=== PATIENT | male | born 1930 | race Caucasian/White ===

== ENCOUNTER 2018-04-01 08:28 | Day surgery (SDC) | payer OTHER ==
--- NOTE | 2018-03-15 11:22 | RAD REPORT ---
EXAM DESCRIPTION: RAD - Chest Pa And Lat (2 Views) - 03/15/2018 11:15 am CLINICAL HISTORY: Chest pain. COMPARISON: None. FINDINGS: The lungs are hyperexpanded but clear. The heart is normal in size. No displaced fractures . IMPRESSION: COPD.
--- NOTE | 2018-03-15 15:39 | EKG ---
Test Date: 2018-03-15 Test Time: 11:07:33 Integrated Circuit Design Engineer: JAMES MEASUREMENT RESULTS: Intervals: Rate: 64 NM: 254 QRSD: 102 QT: 410 QTc: 422 [place]: P: 64 NM: 254 QRS: -40 T: 60 INTERPRETIVE STATEMENTS: Sinus rhythm with 1st degree AV block Left axis deviation Abnormal ECG Compared to ECG 07/23/2009 18:24:11 Left-axis deviation now present Sinus bradycardia no longer present Atrial premature complex(es) no longer present Ventricular premature complex(es) no longer present Electronically Signed On 03-15-18 15:38:33 CDT by Ronaldo Concepcion
[2018-03-28 15:38] LABS: Absolute Monocytes 0.8 K/uL (0.1-1.3); Absolute Neutrophil 3.4 K/uL (1.8-8.0); Hematocrit 42.9 % (39.6-49.0); Lymphocytes % 40.5 % (15.3-44.8); MCH 31.6 pg (27.0-35.0); MCV 95.1 fL (80-100); MPV 8.7 fL (7.6-11.3); RBC Red Blood Cell Count 4.51 M/uL (4.33-5.43)
[2018-03-28 16:00] LABS: Potassium 4.9 mEq/L (3.6-5.0)
[~2018-04-01 08:28] MED LIST: CEFAZOLIN/SWI 1gm 1 GM/10 ML SYR IVP SCH
[2018-04-01] MEDS ORDERED: CEFAZOLIN/SWI 1gm 1 GM/10 ML SYR ONE (08:54)
[2018-04-01] MEDS ORDERED: Ringers Lactate 1,000 ML IV ONE ×2 (08:54→10:37)
[2018-04-01] MEDS ORDERED: PROPOFOL 200 MG/20 ML VIAL IV ONE (09:31)
[2018-04-01] MEDS ORDERED: FENTANYL CITR 100 MCG/2 ML ONE ×2 (09:33→10:25)
[2018-04-01] MEDS ORDERED: ROCURONIUM 50 MG/5 ML VIAL IV ONE (09:34)
[2018-04-01] MEDS ORDERED: ONDANSETRON HCL 40 MG/20 ML VIAL ONE (09:34)
[2018-04-01] MEDS ORDERED: GLYCOPYRROLATE 0.2 MG/ML SYR ONE (10:14)
[2018-04-01] MEDS ORDERED: NEOSTIGMINE 1 MG/ML -5 ML SYRINGE ONE (10:15)
[2018-04-01] MEDS: BUPIVACAINE 0.5% PF 10 ML VIAL ONE ×2 (10:35→10:53)
--- NOTE | 2018-04-01 10:54 | P.BOP ---
Preoperative diagnosis: tender left inguinal hernia Postoperative diagnosis: same Primary procedure: Open repair of tender left inguinal hernia with mesh Gold Nib Grinder: Fior Michael (Perla) Estimated blood loss: <10cc Specimen: lipoma of cord Findings: as above Anesthesia: General Complications: None Implants: mesh sheet and plug Transferred to: Recovery Room Condition: Good
[2018-04-01] MEDS: MEPERIDINE HCL 25 MG/0.5 ML ONE ×2 (11:30→11:35)
[2018-04-01 11:39] VITALS: TEMP 98.5
[2018-04-01] MEDS ORDERED: CODEINE 30MG/APAP 300MG TAB ONE (12:40)
[2018-04-01 12:48] VITALS: BP 108/56; O2SAT 98
--- NOTE | 2018-04-01 23:27 | OP ---
Date of Procedure: 04/01/2018 Surgeon: Chris Jackson MD Computer Clerk: LEAH Brown. Preoperative Diagnosis: Tender left inguinal hernia. Postoperative Diagnosis: Tender left inguinal hernia. Procedure Performed: Open repair of tender left inguinal hernia with mesh. Anesthesia: General plus local. Implants: Mesh, sheath, and plug. Indications: This is the case of an 87-year-old patient, comes to us with a tender left inguinal her paul. Benefits, alternatives, and risks of repair were fully explained which include but are not limi hunter to infection, bleeding, damage to adjacent structures as a complication, recurrence, LA, and even . He also understands this may not relieve any symptoms and he might need more than one surgic al intervention. He also understands the importance of no heavy lifting. He might have some chronic sensory and nerve deficits versus pain. He understands the chance of damage to the testicle. He wa s explained the details of a mesh placement and pros and cons of it. He understood, signed a consent . Description Of Procedure: The patient was brought to the operating room. A time-out was called. Th e anesthesia was done without complication. Left abdomen and inguinal region were prepped and draped in a sterile fashion. Local anesthesia was applied followed by sharp incision of the skin. Christina' s fascia was opened and we found the external oblique aponeurosis and the fibers were opened in the d irection of the fibers to meet the superficial inguinal ring. The ilioinguinal nerve and iliohypogas tric nerve were protected behind external oblique aponeurosis. The [place] was placed around the spe rmatic cord. We noticed the patient to have a hernia sac. Direct hernia was carefully imbricated an d a plug was placed in that area and secured in place with VersaTack nisha. The lipoma of the cord was also ligated. Spermatic cord protected at all times. The floor of the canal had to be reinforc ed. We reinforced that by using #1 Prolene to the pubic tubercle, shelving edge of inguinal ligament , transversalis fascia. After that, we put a mesh sheath over that floor of the canal and secured in place to the pubic tubercle, shelving edge of inguinal ligament, transversalis fascia, and the loops around the spermatic cord. The area was irrigated. After that, we placed the ilioinguinal nerve an d iliohypogastric nerve back into the inguinal canal. We reconstructed superficially the inguinal ri ng and closed the external oblique aponeurosis with the 2-0 Prolene. The area was irrigated. Hemost asis obtained. Nerves were protected all times. Christina's fascia closed with 3-0 chromic and skin wi th nisha. Sponge count and instrument counts were correct. The patient tolerated the procedure we ll. The patient was sent to Recovery in stable condition. DISCHARGE SUMMARY Diagnosis: Tender left inguinal hernia. Procedure: Open repair of a tender left inguinal hernia with mesh. Disposition: Home. Activity: As tolerated. No heavy lifting. Followup: Follow up in my office in 1 week. Call for appointment [phone]. Instructions: Keep area dry for 48 hours, then may shower. Medications: Include Tylenol No. 3, q.4 hours p.r.n. pain. Implants: Mesh, sheath, and plug. Disposition: Transferred to recovery room. SIM Voice ID: [id number] Report ID: [id number]
== END 2018-04-01 13:42 | disposition home or self-care (01) ==
LOC: OR 08:28
PROVIDERS: ATTEND Surgery
PROC: 0YU60JZ Supplement Left Inguinal Region with Synthetic Substitute, Open Approach (ICD-10-PCS; principal; 2018-04-01 10:00)
DX: K40.90 Unilateral inguinal hernia, without obstruction or gangrene, not specified as recurrent (principal); E07.9 Disorder of thyroid, unspecified; Z01.812 Encounter for preprocedural laboratory examination; Z80.9 Family history of malignant neoplasm, unspecified
CPT/HCPCS: 36415; 49505; 71046; 80048; 85025; 88302; 93005; J0690; J2175; J2405; J2710; J3010 ×2

== ENCOUNTER 2018-04-06 08:17 | Observation (INO) | payer OTHER ==
[2018-04-06 08:56] LABS: Absolute Lymphocytes (CBC) 1.1 K/uL (0.7-4.9); Absolute Monocytes 1.1 K/uL (0.1-1.3); Basophils % 0.5 % (0-1.3); Eosinophils % 1.7 % (0-4.4); Hematocrit 40.8 % (39.6-49.0); Lymphocytes % 15.4 % (15.3-44.8); MCH 31.9 pg (27.0-35.0); MCV 92.5 fL (80-100); MPV 8.5 fL (7.6-11.3); Monocytes % 15.3 % (3.3-12.3); RBC Red Blood Cell Count 4.41 M/uL (4.33-5.43)
[2018-04-06] MEDS ORDERED: NA CHLORIDE 0.9% 500 ML ONE (08:56)
[2018-04-06] MEDS ORDERED: NA CHLORIDE 0.9% 1,000 ML ONE (08:56)
[2018-04-06] MEDS ORDERED: ASPIRIN 81 MG CHEWABLE TABLET ONE (08:56)
[2018-04-06] MEDS ORDERED: FAMOTIDINE 20 MG/2 ML VIAL IV ONE (08:56)
[2018-04-06 09:00] LABS: Protime INR 1.05
[2018-04-06 09:15] LABS: Potassium 3.8 mEq/L (3.6-5.0)
[2018-04-06 09:21] LABS: Albumin 3.8 g/dL (3.2-5.5); Bilirubin Direct 0.1 mg/dL (0-0.2); Bilirubin Total 0.7 mg/dL (0.3-1.2); Magnesium 1.8 mg/dL (1.8-2.5); Protein, Total 7.2 g/dL (6.0-8.3)
[2018-04-06 09:24] LABS: CKMB Creatine Kinase MB 5.4 ng/ml (0.3-4.0)
[2018-04-06 09:27] LABS: Blood Morphology Comment NOT SEEN (NOT SEEN); Platelet Estimate ADEQ
[2018-04-06] MEDS ORDERED: ONDANSETRON 4 MG/2 ML VIAL IV PRN (09:36)
[2018-04-06] MEDS ORDERED: ACETAMINOPHEN 500 MG TAB PO PRN (09:36)
[2018-04-06] MEDS ORDERED: MORPHINE 4 MG/ML SYR IV PRN (09:36)
--- NOTE | 2018-04-06 09:41 | ER ---
Nurse's Notes [facility] Name: Stefan Lake Age: 87 yrs Sex: Male : 1930 Arrival Date: 04/06/2018 Time: 08:21 Bed 20 Private MD: Yuko Heart F Diagnosis: Chest pain, unspecified;Chest pain on breathing Presentation: 04/06 08:33 Presenting complaint: Child states: pt had 3 episodes of chest pain last night, pt iw states he also had SOB and felt like he couldn't move during the episode, pain radiates from anterior chest wall radiating around back, now c/o abd pain /, pt had recent inguinal hernia repair on Sunday, son reports abnormal EKG 2 weeks prior to surgery. Transition of care: patient was not received from another setting of care. Onset of symptoms was April 06, 2018. Risk Assessment: Do you want to hurt yourself or someone else? Patient reports no desire to harm self or others. Initial Sepsis Screen: Does the patient meet any 2 criteria? No. Patient's initial sepsis screen is negative. Does the patient have a suspected source of infection? No. Patient's initial sepsis screen is negative. Care prior to arrival: None. 08:33 Method Of Arrival: Wheelchair iw 08:33 Acuity: SARAH 3 iw Historical: - Allergies: 08:40 NKA; iw - Home Meds: 08:40 levothyroxine 50 mcg tab 1 tab once daily [Active]; Bactrim oral oral [Active]; iw - PMHx: 08:40 Hypothyroidism; Dementia; iw - PSHx: 08:40 Hernia repair; iw - Immunization history:: Adult Immunizations up to date. - Social history:: Smoking status: Patient/guardian denies using tobacco. - Ebola Screening: : Patient negative for fever greater than or equal to 101.5 degrees Fahrenheit, and additional compatible Ebola Virus Disease symptoms Patient denies exposure to infectious person Patient denies travel to an Ebola-affected area in the 21 days before illness onset No symptoms or risks identified at this time. - Family history:: not pertinent. Screenin:46 Abuse screen: Denies threats or abuse. Nutritional screening: No deficits noted. em Tuberculosis screening: No symptoms or risk factors identified. Fall Risk None identified. Assessment: 08:47 General: Appears in no apparent distress. comfortable, Behavior is calm, cooperative, em Denies fever, chills. Pain: Complains of pain in diaphragm Pain radiates to back and neck Pain began 1 day ago. Neuro: Level of Consciousness is awake, alert, obeys commands, Oriented to person, place, time, situation. Cardiovascular: Reports chest pain, shortness of breath, since yesterday Denies diaphoresis, nausea, Capillary refill < 3 seconds Patient's skin is warm and dry. Respiratory: Airway is patent Respiratory effort is even, unlabored, Respiratory pattern is regular, symmetrical. Respiratory: Breath sounds are clear bilaterally. GI: Abdomen is flat, Bowel sounds present X 4 quads. : No signs and/or symptoms were reported regarding the genitourinary system. EENT: No signs and/or symptoms were reported regarding the EENT system. Derm: Skin is intact, Skin is pink, warm \\T\\ dry. Musculoskeletal: Circulation, motion, and sensation intact. Range of motion: intact in all extremities. 09:00 Reassessment: Patient appears in no apparent distress at this time. pt son reports pt em is having chest pain, repeat EKG ordered, Dr. Orosco notified, pt appears to be having hiccups, son reports, "he's never had hiccups so he doesn't know what it is.". 09:00 Reassessment: Patient appears in no apparent distress at this time. I agree with above iw assessment by Sanjeev Gloria LVN. 10:00 Reassessment: Patient appears in no apparent distress at this time. Patient and/or em family updated on plan of care and expected duration. Pain level reassessed. Patient is alert, oriented x 3, equal unlabored respirations, skin warm/dry/pink. Patient denies pain at this time. Patient states feeling better. Patient states symptoms have improved. 11:04 Reassessment: Patient appears in no apparent distress at this time. Patient and/or em family updated on plan of care and expected duration. Pain level reassessed. Patient is alert, oriented x 3, equal unlabored respirations, skin warm/dry/pink. son at bedside. 12:27 Reassessment: No changes from previously documented assessment. Patient and/or family em updated on plan of care and expected duration. Pain level reassessed. Patient states feeling better. Vital Signs: 08:38 BP 159 / 80; Pulse 70; Resp 18 S; Temp 98.4(O); Pulse Ox 99% on R/A; Weight 70.31 kg; iw Height 5 ft. 7 in. (170.18 cm); Pain 5/10; 09:31 BP 164 / 77; Pulse 64; Resp 16; Pulse Ox 96% on R/A; em 10:30 BP 113 / 69; Pulse 66; Resp 15; Pulse Ox 97% on R/A; Pain 0/10; em 11:30 BP 129 / 83; Pulse 63; Resp 16; Pulse Ox 99% on R/A; em 12:29 BP 123 / 72; Pulse 62; Resp 18; Pulse Ox 95% on R/A; Pain 0/10; em 08:38 Body Mass Index 24.28 (70.31 kg, 170.18 cm) iw ED Course: 08:21 Patient arrived in ED. mr 08:21 Yuko Heart MD is Private Physician. mr 08:25 Giorgio Orosco MD is Attending Physician. sabrina 08:38 Sanjeev Gloria LVN is Primary Nurse. em 08:38 Triage completed. iw 08:38 Arm band placed on. iw 08:40 No provider procedures requiring assistance completed. Inserted saline lock: 20 gauge em in right antecubital area, using aseptic technique. Blood collected. Patient maintains SpO2 saturation greater than 95% on room air. 08:46 Patient has correct armband on for positive identification. secured entrance monitor on. Pulse em ox on. NIBP on. 08:49 Radiology exam delayed due to lab results not completed at this time. (BUN/Creatinine). vm2 08:53 X-ray completed. Portable x-ray completed in exam room. Patient tolerated procedure la2 well. 08:53 XRAY Chest (1 view) In Process Unspecified. EDMS 09:30 Yuko Heart MD is Hospitalizing Provider. sabrina 09:[address] via stretcher. cw1 12:28 Patient admitted, IV remains in place. em Administered Medications: 08:58 Drug: NS 0.9% 500 ml Route: IV; Rate: bolus; Site: right antecubital; em 09:30 Follow up: IV Status: Completed infusion; IV Intake: 500ml em 08:58 Drug: Aspirin 81 mg Route: PO; em 09:30 Follow up: Response: No adverse reaction em 09:01 Drug: Pepcid 20 mg Route: IVP; Site: right antecubital; iw 09:30 Follow up: Response: No adverse reaction em 09:25 Drug: NS 0.9% 1000 ml Route: IV; Rate: 125 ml/hr; Site: right antecubital; em 12:17 Follow up: IV Status: Infusion continued upon admission; IV Intake: 400ml em 10:08 Drug: NS 0.9% 500 ml Route: IV; Rate: bolus; Site: right antecubital; em 12:15 Follow up: IV Status: Completed infusion; IV Intake: 500ml em 10:55 Drug: Heparin ([place]-Bolus No thrombolytic) - HEParin 60 units/kg {Co-Signature: em (Sanjeev iw Gloria SENIOR SOUS CHEF).} Route: IVP; Site: right antecubital; 12:10 Follow up: Response: No adverse reaction em 10:59 Drug: Heparin ([place] Drip) 12 units/kg/hr - (HEParin 82652 units, D5W 500 ml) {Co-Signature: em (Sanjeev Gloria SENIOR SOUS CHEF).} Route: IV; Rate: calculated rate; Site: right antecubital; 12:46 Follow up: IV Status: Infusion continued upon admission; IV Intake: 35ml em Intake: 09:30 IV: 500ml; Total: 500ml. em 12:15 IV: 500ml; Total: 1000ml. em 12:17 IV: 400ml; Total: 1400ml. em 12:46 IV: 35ml; Total: 1435ml. em Output: 12:29 Urine: 2275ml (Voided); Total: 2275ml. em Outcome: 09:41 Decision to Hospitalize by Provider. sabrina 12:28 Admitted to Tele accompanied by tech, via wheelchair, room 414, with chart, Report em called to FABIOLA Crowe 12:28 Condition: good 12:28 Instructed on the need for admit, Demonstrated understanding of instructions. 12:48 Patient left the ED. em Signatures: Dispatcher [employer] Giorgio Zarate MD MD cha Rivera, Maria mr Gloria, Sanjeev, SENIOR SOUS CHEF SENIOR SOUS CHEF em Seda Cavazos RN RN iw Woodley, Crystal 1 Eva Castellano vm2 Keiko Paige la2 Sanjeev Gloria SENIOR SOUS CHEF em
--- NOTE | 2018-04-06 09:41 | EDPHYS ---
Physician Documentation [facility] Name: Stefan Lake Age: 87 yrs Sex: Male : 1930 Arrival Date: 04/06/2018 Time: 08:21 Bed 20 Private MD: Yuko Heart F ED Physician Giorgio Orosco HPI: 04/06 08:47 This 87 yrs old Male presents to ER via Wheelchair with complaints of Chest sabrina Pain. 08:47 The patient or guardian reports chest pain that is located primarily in the substernal sabrina area, epigastric area. Onset: last night. The pain radiates to neck. Associated signs and symptoms: The patient has no apparent associated signs or symptoms. The chest pain is described as a pressure. Modifying factors: The symptoms are alleviated by nothing. the symptoms are aggravated by nothing. Severity of pain: At its worst the pain was mild moderate in the emergency department the pain is unchanged. The patient has not experienced similar symptoms in the past. Historical: - Allergies: 08:40 NKA; iw - Home Meds: 08:40 levothyroxine 50 mcg tab 1 tab once daily [Active]; Bactrim oral oral [Active]; iw - PMHx: 08:40 Hypothyroidism; Dementia; iw - PSHx: 08:40 Hernia repair; iw - Immunization history:: Adult Immunizations up to date. - Social history:: Smoking status: Patient/guardian denies using tobacco. - Ebola Screening: : Patient negative for fever greater than or equal to 101.5 degrees Fahrenheit, and additional compatible Ebola Virus Disease symptoms Patient denies exposure to infectious person Patient denies travel to an Ebola-affected area in the 21 days before illness onset No symptoms or risks identified at this time. - Family history:: not pertinent. ROS: 08:47 Constitutional: Negative for fever, chills, and weight loss, Eyes: Negative for injury, sabrina pain, redness, and discharge, ENT: Negative for injury, pain, and discharge, Neck: Negative for injury, pain, and swelling, Respiratory: Negative for shortness of breath, cough, wheezing, and pleuritic chest pain, Abdomen/GI: Negative for abdominal pain, nausea, vomiting, diarrhea, and constipation, Back: Negative for injury and pain, : Negative for injury, bleeding, discharge, and swelling, MS/Extremity: Negative for injury and deformity, Skin: Negative for injury, rash, and discoloration, Neuro: Negative for headache, weakness, numbness, tingling, and seizure, Psych: Negative for depression, anxiety, suicide ideation, homicidal ideation, and hallucinations, Allergy/Immunology: Negative for hives, rash, and allergies, Endocrine: Negative for neck swelling, polydipsia, polyuria, polyphagia, and marked weight changes, Hematologic/Lymphatic: Negative for swollen nodes, abnormal bleeding, and unusual bruising. 08:47 Cardiovascular: Positive for chest pain, of the diaphragm and xyphoid area. Exam: 08:47 Constitutional: This is a well developed, well nourished patient who is awake, alert, sabrina and in no acute distress. Head/Face: Normocephalic, atraumatic. Eyes: Pupils equal round and reactive to light, extra-ocular motions intact. Lids and lashes normal. Conjunctiva and sclera are non-icteric and not injected. Cornea within normal limits. Periorbital areas with no swelling, redness, or edema. ENT: Nares patent. No nasal discharge, no septal abnormalities noted. Tympanic membranes are normal and external auditory canals are clear. Oropharynx with no redness, swelling, or masses, exudates, or evidence of obstruction, uvula midline. Mucous membranes moist. Neck: Trachea midline, no thyromegaly or masses palpated, and no cervical lymphadenopathy. Supple, full range of motion without nuchal rigidity, or vertebral point tenderness. No Meningismus. Chest/axilla: Normal chest wall appearance and motion. Nontender with no deformity. No lesions are appreciated. Cardiovascular: Regular rate and rhythm with a normal S1 and S2. No gallops, murmurs, or rubs. Normal PMI, no JVD. No pulse deficits. Respiratory: Lungs have equal breath sounds bilaterally, clear to auscultation and percussion. No rales, rhonchi or wheezes noted. No increased work of breathing, no retractions or nasal flaring. Abdomen/GI: Soft, non-tender, with normal bowel sounds. No distension or tympany. No guarding or rebound. No evidence of tenderness throughout. Back: No spinal tenderness. No costovertebral tenderness. Full range of motion. Male : Normal genitalia with no discharge or lesions. Skin: Warm, dry with normal turgor. Normal color with no rashes, no lesions, and no evidence of cellulitis. MS/ Extremity: Pulses equal, no cyanosis. Neurovascular intact. Full, normal range of motion. Neuro: Awake and alert, GCS 15, oriented to person, place, time, and situation. Cranial nerves II-XII grossly intact. Motor strength 5/5 in all extremities. Sensory grossly intact. Cerebellar exam normal. Normal gait. Psych: Awake, alert, with orientation to person, place and time. Behavior, mood, and affect are within normal limits. 08:47 Abdomen/GI: Inspection: abdomen appears normal, Bowel sounds: normal, Palpation: mild abdominal tenderness, left hernia repair 5 days ago, with nisha. 08:55 Musculoskeletal/extremity: DVT Exam: No signs of deep vein thrombosis. no pain, no sabrina swelling, no tenderness, negative Homans' sign noted on exam, no appreciated bluish discoloration, no erythema, no increased warmth. Vital Signs: 08:38 BP 159 / 80; Pulse 70; Resp 18 S; Temp 98.4(O); Pulse Ox 99% on R/A; Weight 70.31 kg; iw Height 5 ft. 7 in. (170.18 cm); Pain 5/10; 09:31 BP 164 / 77; Pulse 64; Resp 16; Pulse Ox 96% on R/A; em 10:30 BP 113 / 69; Pulse 66; Resp 15; Pulse Ox 97% on R/A; Pain 0/10; em 11:30 BP 129 / 83; Pulse 63; Resp 16; Pulse Ox 99% on R/A; em 12:29 BP 123 / 72; Pulse 62; Resp 18; Pulse Ox 95% on R/A; Pain 0/10; em 08:38 Body Mass Index 24.28 (70.31 kg, 170.18 cm) iw MDM: 08:25 Patient medically screened. [facility] 08:49 Data reviewed: vital signs, nurses notes, lab test result(s), EKG, radiologic studies, [facility] CT scan, plain films. 06 08:38 Order name: Basic Metabolic Panel 04/06 08:38 Order name: BNP em 04/06 08:38 Order name: CBC with Diff 04/06 08:38 Order name: Ckmb 04/06 08:38 Order name: CPK 04/06 08:38 Order name: LFT's; Complete Time: 09:24 em 04/06 08:38 Order name: Magnesium; Complete Time: 09:24 em 04/06 08:38 Order name: PT-INR; Complete Time: 09:23 em 04/06 08:38 Order name: Ptt, Activated; Complete Time: 09:23 em 04/06 08:38 Order name: Troponin (emerg Dept Use Only); Complete Time: 09:23 em 04/06 08:38 Order name: Basic Metabolic Panel; Complete Time: 09:24 EDMS 04/06 08:38 Order name: BNP B-Type Natriuretic Peptide; Complete Time: 09:24 EDMS 04/06 08:38 Order name: CBC with Automated Diff; Complete Time: 09:41 EDMS 04/06 08:38 Order name: CKMB Creatine Kinase MB; Complete Time: 09:24 EDMS 04/06 08:38 Order name: XRAY Chest (1 view); Complete Time: 10:19 em 04/06 08:38 Order name: Creatine Phosphokinase; Complete Time: 09:24 EDMS 04/06 08:47 Order name: Lipase; Complete Time: 11:05 sabrina 04/06 08:47 Order name: CT Aorta for Dissection sabrina 04/06 08:47 Order name: TSH; Complete Time: 11:05 sabrina 04/06 09:03 Order name: Manual Differential; Complete Time: 09:41 EDMS 04/06 09:40 Order name: Basic Metabolic Panel EDMS 04/06 09:40 Order name: Basic Metabolic Panel EDMS 04/06 09:40 Order name: CBC with Automated Diff EDMS 04/06 09:40 Order name: CBC with Automated Diff EDMS 04/06 09:40 Order name: Troponin I EDMS 04/06 09:40 Order name: Troponin I EDMS 04/06 09:40 Order name: Troponin I EDMS 04/06 10:49 Order name: Urine Dipstick--Ancillary (enter results) bd 04/06 11:02 Order name: T4 Free; Complete Time: 11:05 EDMS 04/06 12:19 Order name: Urine Dipstick-Ancillary EDMS 04/06 08:38 Order name: EKG; Complete Time: 08:39 em 04/06 08:38 Order name: Cardiac monitoring; Complete Time: 08:40 em 04/06 08:38 Order name: EKG - Nurse/Tech; Complete Time: 08:40 em 04/06 08:38 Order name: IV Saline Lock; Complete Time: 08:40 em 04/06 08:38 Order name: Labs collected and sent; Complete Time: 08:40 em 04/06 08:38 Order name: O2 Per Protocol; Complete Time: 08:41 em 04/06 08:38 Order name: O2 Sat Monitoring; Complete Time: 08:41 em 04/06 08:38 Order name: Urine Dipstick-Ancillary (obtain specimen); Complete Time: 10:36 em 04/06 09:11 Order name: EKG; Complete Time: 09:12 [facility] 04/06 09:11 Order name: EKG - Nurse/Tech; Complete Time: 09:31 [facility] 04/06 09:40 Order name: CONS Physician Consult EDIL 04/06 09:40 Order name: CONS Physician Consult EDIL 04/06 09:40 Order name: Regular EDMS 04/06 09:40 Order name: EKG Electrocardiogram EDIL 04/06 09:40 Order name: EKG Electrocardiogram EDIL 04/06 09:40 Order name: EKG Electrocardiogram EDIL 04/06 09:40 Order name: EKG Electrocardiogram EDIL 04/06 09:41 Order name: Chest Single View EDIL 04/06 09:41 Order name: Chest Single View EDIL 04/06 09:57 Order name: CT; Complete Time: 10:19 EDIL 04/06 10:27 Order name: Echo w/ Doppler [facility] 04/06 10:28 Order name: INCENTIVE SPIROMETRY sabrina Administered Medications: 08:58 Drug: NS 0.9% 500 ml Route: IV; Rate: bolus; Site: right antecubital; em 09:30 Follow up: IV Status: Completed infusion; IV Intake: 500ml em 08:58 Drug: Aspirin 81 mg Route: PO; em 09:30 Follow up: Response: No adverse reaction em 09:01 Drug: Pepcid 20 mg Route: IVP; Site: right antecubital; iw 09:30 Follow up: Response: No adverse reaction em 09:25 Drug: NS 0.9% 1000 ml Route: IV; Rate: 125 ml/hr; Site: right antecubital; em 12:17 Follow up: IV Status: Infusion continued upon admission; IV Intake: 400ml em 10:08 Drug: NS 0.9% 500 ml Route: IV; Rate: bolus; Site: right antecubital; em 12:15 Follow up: IV Status: Completed infusion; IV Intake: 500ml em 10:55 Drug: Heparin ([place]-Bolus No thrombolytic) - HEParin 60 units/kg {Co-Signature: em (Sanjeev iw Gloria RESIDENTIAL MONITOR).} Route: IVP; Site: right antecubital; 12:10 Follow up: Response: No adverse reaction em 10:59 Drug: Heparin ([place] Drip) 12 units/kg/hr - (HEParin 65745 units, D5W 500 ml) iw {Co-Signature: em (Sanjeev Gloria RESIDENTIAL MONITOR).} Route: IV; Rate: calculated rate; Site: right antecubital; 12:46 Follow up: IV Status: Infusion continued upon admission; IV Intake: 35ml em Disposition: 04/06/18 09:41 Hospitalization ordered by Yuko Heart for Observation. Preliminary diagnosis are Chest pain, unspecified, Chest pain on breathing. - Bed requested for Telemetry/MedSurg (observation). - Status is Observation. em - Condition is Fair. - Problem is new. - Symptoms have improved. UTI on Admission? No Signatures: Dispatcher [employer] Shadia Arenas RN RN Giorgio Goodwin MD MD cha Munoz, Edgar, RESIDENTIAL MONITOR RESIDENTIAL MONITOR em Seda Cavazos RN RN Sanjeev Gloria RESIDENTIAL MONITOR em Corrections: (The following items were deleted from the chart) 11:44 09:41 Hospitalization Ordered by Yuko Heart MD for Observation. Preliminary dw diagnosis is Chest pain, unspecified; Chest pain on breathing. Bed requested for Telemetry/MedSurg (observation). Status is Observation. Condition is Fair. Problem is new. Symptoms have improved. UTI on Admission? No. sabrina 12:48 11:44 04/06/2018 09:41 Hospitalization Ordered by Yuko Heart MD for Observation. em Preliminary diagnosis is Chest pain, unspecified; Chest pain on breathing. Bed requested for Telemetry/MedSurg (observation). Status is Observation. Condition is Fair. Problem is new. Symptoms have improved. UTI on Admission? No. dw
--- NOTE | 2018-04-06 09:48 | RAD REPORT ---
EXAM DESCRIPTION: RAD - Chest Single View - 04/06/2018 8:55 am CLINICAL HISTORY: Chest pain. COMPARISON: 03/15/2018 FINDINGS: Portable technique limits examination quality. The lungs are mildly emphysematous but grossly clear. The heart is normal in size. No displaced fract ures. IMPRESSION: No acute intrathoracic process suspected.
--- NOTE | 2018-04-06 09:57 | RAD REPORT ---
EXAM DESCRIPTION: CT - Angio Aorta For Dissection - 04/06/2018 9:47 am CLINICAL HISTORY: Chest pain radiating to the back. COMPARISON: None. TECHNIQUE: CT angiography of the aorta was performed with volume rendering. All CT scans are performed using dose optimization technique as appropriate and may include automated exposure control or mA/KV adjustment according to patient size. FINDINGS: A left aortic arch is present with normal branching pattern of the great vessels.No acute aortic finding is seen such as aneurysm, penetrating ulcer or dissection. The celiac axis, SMA, TAMMY and renal arteries are widely patent. Small accessory left renal artery noted. No evidence of pulmonary embolism. Linear subsegmental atelectasis is present both posterior lung bases. Mild thickening of the esophagu s is noted. The liver demonstrates no focal mass or biliary dilatation.The spleen, pancreas, adrenal glands and k idneys are within normal limits for arterial phase imaging.Benign left renal cyst is present. No bowel obstruction, free fluid or abscess.Postsurgical changes are present in the left inguinal reg ion soft tissue swelling.No pathologic enlarged lymphadenopathy identified. No fracture or worrisome bone lesion seen. IMPRESSION: No acute aortic finding is demonstrated.
[2018-04-06 10:18] LABS: Thyroid Stimulating Hormone 5.86 uIU/mL (0.34-5.60)
[2018-04-06] MEDS ORDERED: HEPARIN/D5W 25,000 UNIT/500 ML BAG IV ONE (10:38)
[2018-04-06 12:19] LABS: Urine Blood NEGATIVE (NEG); Urine Glucose NEGATIVE (NEG); Urine Protein NEGATIVE (NEG); Urine pH 6.5 (5.0-7.0)
[2018-04-06 13:39] VITALS: BMI 24.3
[2018-04-06] MEDS ORDERED: HEPARIN/D5W 25,000 UNIT/500 ML BAG IV PRN (14:00)
[2018-04-06] MEDS: HEPARIN 10,000 UNIT/10 ML VIAL IV PRN (21:10)
--- NOTE | 2018-04-06 21:32 | HP ---
Date of Admission: 04/06/2018 History Of Present Illness: An 87-year-old male who presented to the emergency room with a complaint of chest pain that started the previous night. The patient described it in the emergency room as cortez bsternal going up to his neck. However to me, he said that it is more so in the epigastric area poin ting to that region. The patient's chest pain was coming back and forth. However at the time of int erviewing the patient by me, he has no chest pain, no abdominal pain, and he voiced no other complain t. Review of Systems: Cardiovascular: No palpitation. No dizziness. No other complaints. Respiratory: The patient describes some shortness of breath associated with his chest pain, but is v rachael mild. Neurologic: No complaints. ENT: No complaints. Skeletomuscular: No complaint. Gastrointestinal: No complaint. Past Medical History: 1.Hypothyroidism. 2.Mild senile dementia. Past Surgical History: The patient has had hernia repair in the past. Social History: No smoking, alcohol, or drug abuse history. Family History: Noncontributing. Medications: Levothyroxine at 50 mcg p.o. daily. Physical Examination: Vital Signs: Blood pressure 125/72, pulse 60, temperature 96.8. Heart: Regular rate and rhythm. Chest: Clear to auscultation. Abdomen: Soft, nontender, nondistended. Bowel sounds are normoactive. Extremities: No edema. No cyanosis. Peripheral pulses are felt. Neurologic: Alert, oriented, nonfocal. Grossly intact. Laboratory Data: EKG, no acute ischemic changes reported to me by ER physician. Chest x-ray and CT scan, no acute pathology. CBC noted. Chemistry; sodium 125, chloride 89, BUN 14, creatinine 1.32, rapid troponin less than 0.0 3. BNP 124. TSH 5.86. Assessment/plan: 1.Chest pain, atypical. The patient to me said this did not radiate to his neck. However, it seems that he said that to the emergency room physician. The patient is being admitted now. We will ask Cardiology input on that. An echo was ordered. We will keep the patient on heparin as ordered for h im, and aspirin. We will continue his Synthroid, and serial cardiac enzymes are ordered to be drawn. 2.Hyponatremia and acute renal failure. The patient reports no fluid loss. Hyponatremia, pain coul d have initiated that along with a mild volume depletion, probably causing his creatinine at 1.32. W e will monitor that. The patient has no pain now, expect those to improve. Look orders for details. MFS/MODL Voice ID: [id number]
[2018-04-07] MEDS: LEVOTHYROXINE SOD 0.05 MG TABLET PO SCH (05:38)
[2018-04-07] MEDS: PANTOPRAZOLE 40MG TABLET PO SCH (05:38)
[2018-04-07 05:54] LABS: Absolute Lymphocytes (CBC) 1.2 K/uL (0.7-4.9); Absolute Neutrophil 4.2 K/uL (1.8-8.0); Basophils % 0.6 % (0-1.3); Eosinophils % 2.3 % (0-4.4); Hematocrit 34.2 % (39.6-49.0); Lymphocytes % 18.3 % (15.3-44.8); MCH 32.6 pg (27.0-35.0); MCV 92.2 fL (80-100); MPV 7.9 fL (7.6-11.3); Monocytes % 14.8 % (3.3-12.3); RBC Red Blood Cell Count 3.71 M/uL (4.33-5.43)
[2018-04-07] MEDS: HEPARIN 10,000 UNIT/10 ML VIAL IV PRN (06:23)
[2018-04-07 06:27] LABS: Potassium 4.1 mEq/L (3.6-5.0)
--- NOTE | 2018-04-07 09:12 | EKG ---
Test Date: 2018-04-06 Test Time: 09:08:36 Tool And Die Manager: OCTAVIO MEASUREMENT RESULTS: Intervals: Rate: 69 WI: QRSD: 106 QT: 408 QTc: 437 [place]: P: WI: QRS: -21 T: 38 INTERPRETIVE STATEMENTS: Undetermined rhythm Septal infarct, age undetermined Abnormal ECG Compared to ECG 04/06/2018 08:36:39 Sinus rhythm no longer present Atrial premature complex(es) no longer present Ventricular premature complex(es) no longer present Left-axis deviation no longer present Myocardial infarct finding still present Electronically Signed On 04-07-18 09:08:44 CDT by Dragan Ballard
--- NOTE | 2018-04-07 09:12 | EKG ---
Test Date: 2018-04-06 Test Time: 08:36:39 Pediatric Physical Therapist: MAXIMILIANG MEASUREMENT RESULTS: Intervals: Rate: 74 NM: 192 QRSD: 108 QT: 406 QTc: 450 [place]: P: 28 NM: 192 QRS: -32 T: 54 INTERPRETIVE STATEMENTS: Sinus rhythm with premature supraventricular complexes and with occasional premature ventricular complexes Left axis deviation Septal infarct, age undetermined Abnormal ECG Compared to ECG 03/15/2018 11:07:33 Atrial premature complex(es) now present Ventricular premature complex(es) now present Myocardial infarct finding now present First degree AV block no longer present Electronically Signed On 04-07-18 09:08:45 CDT by Dragan Ballard
[2018-04-07] MEDS: ASPIRIN EC 81 MG TAB PO SCH (09:16)
--- NOTE | 2018-04-07 11:24 | RAD REPORT ---
EXAM DESCRIPTION: Eliecer Single View04/07/2018 6:39 am CLINICAL HISTORY: Chest pain COMPARISON: April 06, 2018 FINDINGS: The lungs appear clear of acute infiltrate. The heart is normal size IMPRESSION: No acute abnormalities displayed
--- NOTE | 2018-04-07 17:00 | PN ---
Subjective: The patient has no new complaints. No chest pain. Physical Examination: Vital Signs: No change. Assessment And Plan: The patient is scheduled to have an echo and a stress test pending results acco rding to Cardiology recommendations. Meanwhile, continue current treatment and care. ANTHONY/WARREN Voice ID: [id number] Report ID: [id number]
[2018-04-07 23:51] VITALS: O2SAT 95
[2018-04-08 08:38] VITALS: TEMP 97.9
[2018-04-08] MEDS ORDERED: REGADENOSON 0.4 MG/5 ML SYR IV ONE (09:34)
--- NOTE | 2018-04-08 10:13 | RAD REPORT ---
EXAM DESCRIPTION: NM - Rest Stress Cardiac Imaging - 04/08/2018 10:03 am CLINICAL HISTORY: Chest pain COMPARISON: None. TECHNIQUE: The patient was administered 10.7 mCi of Tc 99m Sestamibi prior to resting SPECT imaging of the heart. The patient was then administered 30.8 mCi of Tc 99m Sestamibi following exercise or ph armacologic stress. Multiplanar SPECT images were reviewed. FINDINGS: The end diastolic volume is 77 ml, the end systolic volume is 21 ml, and the ejection frac tion is 73 %. No stress-induced ischemic changes identifiable. Moderate decreased activity is seen in the base and mid portion of the inferior wall unchanged between rest and stress imaging. This is favored to be remi phragm attenuation artifact rather than inferior wall scarring. IMPRESSION: No stress-induced ischemic change. Moderate inferior wall fixed diminished activity is favored to be attenuation artifact rather than sc arring. Ventricular volumes and ejection fraction are well within normal limits.
--- NOTE | 2018-04-08 10:42 | ECHO ---
HEIGHT: 5 ft 7 in WEIGHT: 155 lb 0 oz DATE OF STUDY: 04/08/[address]: Giorgio Orosco MD 2-DIMENSIONAL: YES M.MODE: YES DOPPLER: YES COLOR FLOW: YES TDS: PORTABLE: DEFINITY: BUBBLE STUDY: DIAGNOSIS: CHEST PAIN CARDIAC HISTORY: CATHERIZATION: NO SURGERY: NO PROSTHETIC VALVE: NO PACEMAKER: NO MEASUREMENTS (cm) DIASTOLIC (NORMALS) SYSTOLIC (NORMALS) IVSd 1.0 (0.6-1.2) LA Diam 3.9 (1.9-4.0) LVEF 72% LVIDd 4.0 (3.5-5.7) LVIDs 2.4 (2.0-3.5) %FS 40% LVPWd 1.2 (0.6-1.2) Ao Diam 3.5 (2.0-3.7) 2 DIMENSIONAL ASSESSMENT: RIGHT ATRIUM: NORMAL LEFT ATRIUM: NORMAL RIGHT VENTRICLE: NORMAL LEFT VENTRICLE: NORMAL TRICUSPID VALVE: NORMAL MITRAL VALVE: NORMAL PULMONIC VALVE: NORMAL AORTIC VALVE: SCLEROSIS PERICARDIAL EFFUSION: NONE AORTIC ROOT: NORMAL LEFT VENTRICULAR WALL MOTION: NORMAL DOPPLER/COLOR FLOW: MILD AORTIC REGURGITATION. MILD TRICUSPID REGURGITATION. NORMAL RIGHT VENTRICULAR SYSTOLIC PRESSURE. NO AORTIC STENOSIS. COMMENTS: NORMAL LEFT VENTRICULAR EJECTION FRACTION. 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 MILD AORTIC REGURGITATION. MILD TRICUSPID REGURGITATION. TECHNOLOGIST: CHERELLE CHAN
--- NOTE | 2018-04-08 10:50 | TREADPHA ---
DX: CHEST PAIN Date of Study: 04/08/2018 Ht: 5 7 Wt: 155 lb 0 oz Consulting Physician: ZOYA MEDICATIONS: TYLENOL ASPIRIN, HEPARIN, SYNTHORID, MORPHINE SULFATE, ZOFRAN, PROTONIX HISTORY: 87 YEAR OLD MALE HERE FOR CHEST PAIN. HISTORY OF DEMENTIA AND HYPOTHYROIDISM PHYSICIAL EXAMINATION: RESTING B.P.: 155/85 RESTING H.R.: 60 RESTING EKG: SINUS RHTYHM WITH PREMATURE ATRIAL COMPLEXES, LEFT VENTRICULAR HYPERTROPHY, CANNOT RULE OUT MYOCARDIAL INFARCTION. PROTOCOL: LEXISCAN EXERCISE TIME: 3:30 B.P. AT [place]AK STRESS: 130/77 IMPRESSION: LEXISCAN STRESS TEST PERFORMED. CARDIOLITE INJECTED PER PROTOCOL. OCCASIONAL PREMATURE VENTRICULAR COMPLEXES NOTED DURING AND POST STRESS TEST. PREMATURE ATRIAL COMPLEXES NOTED PRIOR AND POST TEST. DENIES ANY CHEST PAIN. SEE NUCLEAR MEDICINE REPORT. NON-DIAGNOSTIC ELECTROCARDIOGRAM WITH LEXISCAN STRESS.
[2018-04-08] MEDS: LEVOTHYROXINE SOD 0.05 MG TABLET PO SCH (12:24)
[2018-04-08] MEDS: ASPIRIN EC 81 MG TAB PO SCH (12:25)
[2018-04-08] MEDS: PANTOPRAZOLE 40MG TABLET PO SCH (12:25)
[2018-04-08 12:35] VITALS: BP 125/77
--- NOTE | 2018-04-08 16:44 | DS ---
Date of Discharge: 04/08/2018 History Of Present Illness: An 87-year-old male with history of gastroesophageal reflux disease, who was admitted to hospital because of substernal chest pain. Past Medical History: As per the admit note. Social History: As per the admit note. Family History: As per the admit note. Medications: As per the admit note. Allergies: PER THE ADMIT NOTE. Physical Examination: As per the admit note. Diagnostic Data: As per the admit note. Hospital Course: The patient was admitted to the hospital. He was put on heparin. Serial cardiac e nzymes withdrawn, came back negative. Cardiology was consulted. He had a stress Myoview, which was negative for ischemia. The patient was put back on his proton pump inhibitor medication and his ches t pain resolved with a negative stress Myoview. I think the patient is stable to be discharged on om eprazole 40 mg p.o. daily, to continue his home medications including his thyroid medication at 50 mc g p.o. daily, and we will follow up with him outpatient. Look discharge orders for details. MFS/MODL Voice ID: [id number] Report ID: [id number]
--- NOTE | 2018-04-09 11:00 | CON ---
Date of Consultation: 04/07/2018 The patient was admitted to Dr. Heart's service on 04/06/2018. The patient was seen by me on 04/07. Reason For Consultation: Chest pain and shortness of breath. History Of Present Illness: Mr. Lake is an 87-year-old white male. He is a patient of mine. He is actually very healthy for his age, but his only medical problem is the hypothyroidism and demen tia. He came in with what sounded like pleuritic chest pain, mid-epigastric at left side, increased with breathing. No nausea, vomiting, diaphoresis. Denied PND, orthopnea, pedal edema, palpitation, or syncope. He did have some shortness of breath with his chest pain but that has resolved by now. So far, all his workup including EKG, chest x-ray, cardiac enzymes are negative. Past Medical History: As stated above. Allergies: NONE. Medication: His only medication is thyroid. Review of Systems: Negative. Social History: Negative. Physical Examination: Vital Signs: Stable. He is afebrile. HEENT: Negative. Neck: Supple with no bruit. Chest: Clear to auscultation and percussion. Cardiac: Revealed a regular rhythm and rate with an aortic sclerosis murmur. No gallops or rubs. Abdomen: Benign. Extremities: Revealed no clubbing, cyanosis, or edema. Impression And Plan: I think the patient has an atypical chest pain. He is 87, but he is very alert and oriented. I think we need to be aggressive trying to rule out coronary artery disease and I wou ld recommend an echocardiogram and a Lexiscan in the morning before making any further decisions. ESTEFANY/WARREN Voice ID: [id number] Report ID: [id number]
== END 2018-04-08 13:16 | disposition home or self-care (01) ==
LOC: ER 08:17 → ERHOLD 09:33 → 4TH 12:22
PROVIDERS: ADMIT Internal Medicine; ATTEND Internal Medicine
DX: R07.89 Other chest pain (principal); E03.9 Hypothyroidism, unspecified; F03.90 Unspecified dementia, unspecified severity, without behavioral disturbance, psychotic disturbance, mood disturbance, and anxiety; K21.9 Gastro-esophageal reflux disease without esophagitis; E87.1 Hypo-osmolality and hyponatremia; N17.9 Acute kidney failure, unspecified
CPT/HCPCS: 36415; 71045 ×2; 71275; 74175; 78452; 80048 ×2; 80076; 81003; 82550; 82553; 83690; 83735; 83880; 84439; 84443; 84484 ×3; 85025 ×2; 85610; 85730 ×6; 93005 ×2; 93017; 93306; 96361; 96365; 96366; 96375; 99285; A9500; G0378 ×2; J2785; J7030; Q9967

== ENCOUNTER 2020-09-11 10:26 | Emergency (ER) | payer OTHER ==
[2020-09-11 11:08] LABS: Absolute Lymphocytes (CBC) 0.4 K/uL (0.7-4.9); Basophils % 0.6 % (0-1.3); Lymphocytes % 4.6 % (15.3-44.8); MPV 8.7 fL (7.6-11.3); RBC Red Blood Cell Count 3.97 M/uL (4.33-5.43)
[2020-09-11] MEDS ORDERED: NA CHLORIDE 0.9% 500 ML ONE (11:13)
--- NOTE | 2020-09-11 11:18 | RAD REPORT ---
EXAM DESCRIPTION: RAD - Chest Single View - 09/11/2020 10:49 am CLINICAL HISTORY: FEVER, fall COMPARISON: Portable May 2018 TECHNIQUE: AP portable chest image was obtained 09/11/2020 10:49 am . FINDINGS: No focal lung parenchymal process. Interstitial pattern is increased slightly due to low l rodri volumes. Heart and vasculature are normal. No measurable pleural effusion and no pneumothorax. No acute bony abnormality seen. No acute aortic findings suspected. IMPRESSION: No acute cardiopulmonary process. No significant change from comparison.
--- NOTE | 2020-09-11 11:24 | RAD REPORT ---
EXAM DESCRIPTION: CT - Head Brain Wo Cont - 09/11/2020 11:17 am CLINICAL HISTORY: fall;Dizziness, head trauma COMPARISON: No comparisons TECHNIQUE: Axial 5 mm thick images of the head were obtained without IV contrast. All CT scans are performed using dose optimization technique as appropriate and may include automated exposure control or mA/KV adjustment according to patient size. FINDINGS: No intracranial hemorrhage, mass, edema or shift of mid-line structures. No acute cortical based infarction identified. No cortical edema or sulcal effacement. There is moderate atrophy with ventricles in proportion. No abnormal extra-axial fluid collections. Chronic ischemic changes relativ keegan mild. Arterial tree calcifications are present. Mastoid air cells and visualized portions of the paranasal sinuses are clear. No acute bony findings. IMPRESSION: Chronic intracranial findings are present as detailed. No acute intracranial process.
[2020-09-11 11:25] LABS: Potassium 3.9 mmol/L (3.5-5.1)
[2020-09-11 12:37] LABS: Blood Morphology Comment NOT SEEN (NOT SEEN); Platelet Estimate ADEQ; White Blood Cell Scan OK (OK)
[2020-09-11 12:38] LABS: Urine Blood TRACE (NEG); Urine Glucose NEGATIVE (NEG); Urine Protein 1+ (NEG); Urine pH 7.5 (5.0-7.0)
[2020-09-11 12:44] LABS: Urine Bacteria <20 /HPF (NONE SEEN); Urine Culture Reflex Order NOT NEEDED; Urine Mucus 2+ /HPF (NONE SEEN); Urine RBC <5 /HPF (NONE SEEN)
--- NOTE | 2020-09-11 12:59 | EDPHYS ---
Physician Documentation [facility] Name: Stefan Lake Age: 89 yrs Sex: Male : 1930 Arrival Date: 09/11/2020 Time: 10:27 Bed 4 Private MD: ED Physician Jorje Balderas HPI: 09/11 10:44 This 89 yrs old Male presents to ER via EMS with complaints of Fall Injury. rn 10:44 Details of fall: The patient fell from an upright position, while standing. Onset: The rn symptoms/episode began/occurred just prior to arrival. Associated injuries: The patient sustained no obvious injury. Severity of symptoms: At their worst the symptoms were mild, in the emergency department the symptoms have improved. The patient has not experienced similar symptoms in the past. The patient has not recently seen a physician. Per report, at [facility], in hot tub, patient states longer than normal. No fever prior to going to [facility] and denies recent illness. Reports got out of hot tub, felt lightheaded, fell to ground, was helped by multiple people. No LOC, no head injury. Noted to have fever by EMS, was screened prior to entering [facility] and was afebrile. Scrape to right elbow. Right now patient states feels fine, no complaints. Given tylenol by EMS. . Historical: - Allergies: 10:30 NKA; bp - Home Meds: 10:30 levothyroxine 50 mcg tab 1 tab once daily [Active]; bp - PMHx: 10:30 Dementia; Hypothyroidism; bp - Immunization history:: Adult Immunizations up to date. - Social history:: Smoking status: Patient denies any tobacco usage or history of. - Family history:: not pertinent. - Hospitalizations: : No recent hospitalization is reported. ROS: 10:44 Constitutional: Negative for chills, and weight loss, Eyes: Negative for injury, pain, rn redness, and discharge, ENT: Negative for injury, pain, and discharge, Neck: Negative for injury, pain, and swelling, Cardiovascular: Negative for chest pain, palpitations, and edema, Respiratory: Negative for shortness of breath, cough, wheezing, and pleuritic chest pain, Abdomen/GI: Negative for abdominal pain, nausea, vomiting, diarrhea, and constipation, Back: Negative for injury and pain, : Negative for injury, bleeding, discharge, and swelling, MS/Extremity: Negative for injury and deformity, Skin: Negative for injury, rash, and discoloration, Neuro: Negative for headache, numbness, tingling, and seizure. Exam: 10:44 Constitutional: This is a well developed, well nourished patient who is awake, alert, rn and in no acute distress. Head/Face: Normocephalic, atraumatic. Eyes: Pupils equal round and reactive to light, extra-ocular motions intact. Lids and lashes normal. Conjunctiva and sclera are non-icteric and not injected. Cornea within normal limits. Periorbital areas with no swelling, redness, or edema. ENT: No oral trauma. Neck: Trachea midline, no thyromegaly or masses palpated, and no cervical lymphadenopathy. Supple, full range of motion without nuchal rigidity, or vertebral point tenderness. No Meningismus. Cardiovascular: Regular rate and rhythm. No pulse deficits. Respiratory: Speaking full sentences. No increased work of breathing, no retractions or nasal flaring. Abdomen/GI: soft, non-tender Back: No spinal tenderness. No costovertebral tenderness. Full range of motion. Skin: Warm, dry MS/ Extremity: Pulses equal, no cyanosis. Neurovascular intact. Full, normal range of motion. Equal circumference. Neuro: Awake and alert, GCS 15, oriented to person, place, and situation. Cranial nerves II-XII grossly intact. Motor strength 5/5 in all extremities. Sensory grossly intact. Cerebellar exam normal. Vital Signs: 10:28 Pulse 90; Resp 18; Temp 103.1; Pulse Ox 94% on R/A; bp 10:35 BP 130 / 80; Pulse 93; Resp 23; Temp 101.2(O); Pain 0/10; rb3 11:15 BP 108 / 66; Pulse 89; Resp 21; Pulse Ox 95% ; bp 12:09 BP 120 / 78; Pulse 82; Resp 21; Pulse Ox 97% ; Pain 0/10; rb3 13:00 BP 117 / 66; Pulse 83; Resp 19; Pulse Ox 95% ; rb3 MDM: 10:30 Patient medically screened. rn 12:56 Differential diagnosis: contusion, dehydration, viral infection, hyperthermia from hot rn tub, UTI, pneumonia, COVID. Data reviewed: vital signs, nurses notes, lab test result(s), EKG, radiologic studies, CT scan, plain films, and as a result, I will discharge patient. Counseling: I had a detailed discussion with the patient and/or guardian regarding: the historical points, exam findings, and any diagnostic results supporting the discharge/admit diagnosis, lab results, radiology results, the need for outpatient follow up, to return to the emergency department if symptoms worsen or persist or if there are any questions or concerns that arise at home. Response to treatment: the patient's symptoms have markedly improved after treatment, the patient's condition has returned to base line, the patient is now symptom free, and as a result, I will discharge patient. Special discussion: I discussed with the patient/guardian in detail that at this point there is no indication for admission to the hospital. It is understood, however, that if the symptoms persist or worsen the patient needs to return immediately for re-evaluation. ED course: Pt back to baseline since arrival, temp has gone down, footage review from [facility] shows > 1 hour in hot tub. Neg procal/flu/cxr/urine, neg ct head, normal neuro exam, will dc home. Son in room, states acting normal. . 09/11 10:32 Order name: Urine Culture 09/11 10:32 Order name: Urine Microscopic Only; Complete Time: 12:48 09/11 10:32 Order name: CBC with Diff; Complete Time: 12:48 09/11 10:32 Order name: Basic Metabolic Panel; Complete Time: 11: 09/11 10:32 Order name: Flu; Complete Time: 12:48 09/11 10:32 Order name: CT Head Brain wo Cont; Complete Time: 11: 09/11 10:32 Order name: XRAY Chest (1 view); Complete Time: 11: 09/11 10:32 Order name: Strep; Complete Time: 11: 09/11 10:32 Order name: Procalcitonin; Complete Time: 12:48 09/11 11:26 Order name: Throat Culture [facility] 09/11 12:35 Order name: Urine Dipstick--Ancillary (enter results); Complete Time: 12:48 09/11 12:37 Order name: CBC Smear Scan; Complete Time: 12:48 [facility] 09/11 10:32 Order name: IV Start; Complete Time: 11:03 rn 09/11 10:32 Order name: Urine Dipstick-Ancillary (obtain specimen); Complete Time: 12:35 rn Administered Medications: 11:04 Drug: NS 0.9% 500 ml Route: IV; Rate: bolus; Site: left antecubital; rb3 Disposition: 09/11/20 12:58 Discharged to Home. Impression: Dehydration, Hyperthermia. - Condition is Stable. - Discharge Instructions: Dehydration, Adult. - Medication Reconciliation Form, Thank You Letter, Antibiotic Education, Prescription Opioid Use form. - Follow up: Private Physician; When: As needed; Reason: Recheck today's complaints, Re-evaluation by your physician. - Problem is new. - Symptoms have improved. Signatures: Dispatcher [employer] EDMS Jorje Balderas MD MD rn Peltier, Brian RN RN Gisel Harry RN RN rb3 Corrections: (The following items were deleted from the chart) 13:36 12:58 09/11/2020 12:58 Discharged to Home. Impression: Dehydration; Hyperthermia. rb3 Condition is Stable. Forms are Medication Reconciliation Form, Thank You Letter, Antibiotic Education, Prescription Opioid Use. Follow up: Private Physician; When: As needed; Reason: Recheck today's complaints, Re-evaluation by your physician. Problem is new. Symptoms have improved. rn
--- NOTE | 2020-09-11 12:59 | ER ---
Nurse's Notes [facility] Name: Stefan Lake Age: 89 yrs Sex: Male : 1930 Arrival Date: 09/11/2020 Time: 10:27 Bed 4 Private MD: Diagnosis: Dehydration;Hyperthermia Presentation: 09/11 10:28 Chief complaint: EMS states: [facility] EXITING HOT TUB, NOW WITH bp POSSIBLE AMS. Coronavirus screen: At this time, the client does not indicate any symptoms associated with coronavirus-19. Ebola Screen: No symptoms or risks identified at this time. Initial Sepsis Screen: Does the patient meet any 2 criteria? Altered Mental Status. No. Patient's initial sepsis screen is negative. Does the patient have a suspected source of infection? No. Patient's initial sepsis screen is negative. Risk Assessment: Do you want to hurt yourself or someone else? Patient reports no desire to harm self or others. Onset of symptoms was September 11, 2020 at 10:00. Care prior to arrival: Glucose check: 118. 10:28 Method Of Arrival: EMS: [facility] bp 10:28 Acuity: SARAH 3 bp Triage Assessment: 10:30 General: Appears in no apparent distress. comfortable, Behavior is cooperative, bp appropriate for age, anxious. EENT: No deficits noted. Neuro: Level of Consciousness is awake, alert, obeys commands, Oriented to person, place, time, situation. Cardiovascular: Rhythm is sinus rhythm. Respiratory: No deficits noted. GI: No signs and/or symptoms were reported involving the gastrointestinal system. : No signs and/or symptoms were reported regarding the genitourinary system. Derm: No deficits noted. Musculoskeletal: No deficits noted. 10:30 Pain: Complains of pain in right elbow. bp Historical: - Allergies: 10:30 NKA; bp - Home Meds: 10:30 levothyroxine 50 mcg tab 1 tab once daily [Active]; bp - PMHx: 10:30 Dementia; Hypothyroidism; bp - Immunization history:: Adult Immunizations up to date. - Social history:: Smoking status: Patient denies any tobacco usage or history of. - Family history:: not pertinent. - Hospitalizations: : No recent hospitalization is reported. Screenin:33 Abuse screen: Denies threats or abuse. Denies injuries from another. Nutritional bp screening: No deficits noted. Tuberculosis screening: No symptoms or risk factors identified. Fall Risk Secondary diagnosis (15 points) dementia. Assessment: 10:30 General: SEE TRIAGE NOTE. bp 11:15 Reassessment: Patient appears in no apparent distress at this time. No changes from bp previously documented assessment. Patient and/or family updated on plan of care and expected duration. Pain level reassessed. Patient is alert, oriented x 3, equal unlabored respirations, skin warm/dry/pink. PT TO CT. 12:09 Reassessment: Patient appears in no apparent distress at this time. Patient and/or rb3 family updated on plan of care and expected duration. Pain level reassessed. 13:00 Reassessment: Patient appears in no apparent distress at this time. Pt. is resting with rb3 eyes closed, respirations even, unlabored. Son at the bedside. Vital Signs: 10:28 Pulse 90; Resp 18; Temp 103.1; Pulse Ox 94% on R/A; bp 10:35 BP 130 / 80; Pulse 93; Resp 23; Temp 101.2(O); Pain 0/10; rb3 11:15 BP 108 / 66; Pulse 89; Resp 21; Pulse Ox 95% ; bp 12:09 BP 120 / 78; Pulse 82; Resp 21; Pulse Ox 97% ; Pain 0/10; rb3 13:00 BP 117 / 66; Pulse 83; Resp 19; Pulse Ox 95% ; rb3 ED Course: 10:27 Patient arrived in ED. bp 10:29 Triage completed. bp 10:30 Jorje Balderas MD is Attending Physician. rn 10:30 Arm band placed on. bp 10:33 Patient has correct armband on for positive identification. Bed in low position. Call bp light in reach. Side rails up X2. 10:34 Artur Santana, FABIOLA is Primary Nurse. bp 10:49 XRAY Chest (1 view) In Process Unspecified. EDMS 11:00 Inserted saline lock: 20 gauge in left forearm, using aseptic technique. Blood bp collected. 11:17 CT Head Brain wo Cont In Process Unspecified. EDMS 12:42 Throat Culture Sent. bp 12:42 COVID-19 Sent. bp 12:42 Urine Culture Sent. bp 12:42 Urine Microscopic Only Sent. bp 13:30 No provider procedures requiring assistance completed. IV discontinued, intact, rb3 bleeding controlled, No redness/swelling at site. Pressure dressing applied. Administered Medications: 11:04 Drug: NS 0.9% 500 ml Route: IV; Rate: bolus; Site: left antecubital; rb3 Outcome: 12:58 Discharge ordered by . rn 13:30 Discharge instructions given to patient, Instructed on discharge instructions, follow rb3 up and referral plans. Demonstrated understanding of instructions, follow-up care, Prescriptions given X none 13:30 Discharged to home via wheelchair, with family. rb3 13:30 Condition: stable 13:36 Patient left the ED. rb3 Signatures: Dispatcher [employer] EDMS Jorje Balderas MD MD rn Peltier, Brian, RN RN Gisel Harry RN RN rb3 Corrections: (The following items were deleted from the chart) 10:33 10:30 Pain: Complains of pain in left elbow bp bp 13:35 13:34 No provider procedures requiring assistance completed. rb3 rb3 13:35 13:34 IV discontinued, intact, bleeding controlled, No redness/swelling at site. rb3 Pressure dressing applied, rb3 13:35 13:34 Discharged to home via wheelchair, with family, rb3 rb3 13:35 13:34 Condition: stable rb3 rb3
[2020-09-11 14:14] VITALS: TEMP 101.2
[2020-09-11 14:19] VITALS: BP 117/66; O2SAT 95
== END 2020-09-11 13:36 | disposition home or self-care (01) ==
LOC: ER 10:26
DX: E86.0 Dehydration (principal); Z20.828 Contact with and (suspected) exposure to other viral communicable diseases; E03.9 Hypothyroidism, unspecified; F03.90 Unspecified dementia, unspecified severity, without behavioral disturbance, psychotic disturbance, mood disturbance, and anxiety; W19.XXXA Unspecified fall, initial encounter; Y93.89 Activity, other specified; Y92.39 Other specified sports and athletic area as the place of occurrence of the external cause
CPT/HCPCS: 87070; 87088; 85025; 87086; 80048; 36415; 82947; 87081; 84145; 87804 ×2; 70450; 71045; 99284; U0003; J7040; 81003; 81015

== ENCOUNTER 2020-09-15 19:09 | Inpatient (IN) | payer OTHER ==
--- OUTSIDE RECORDS SUMMARY | 2020-09-15 19:12 | XMS REPORT | Clinical Summary ---
:1930 Author Organization [facility] Address [address] [place] [address] Care Team Providers Name Role Phone Unavailable Primary Care Provider Unavailable Allergies No Known Allergies Medications Medication Sig Dispensed Refills Start Date End Date Status levothyroxine Take 75 mcg 0 Acti ve (SYNTHROID, by mouth LEVOTHROID) 75 MCG Every tablet morning on an empty stomach. apixaban (ELIQUIS) Take 1 60 tablet 2 09/14/2020 Active 5 mg Tab tablet tablet (5 mg 1 total) by mouth 2 (two) times daily for 90 days. metoprolol tartrate Take 0.5 90 tablet 3 09/14/2020 Active (LOPRESSOR) 25 MG tablets 1 tablet (12.5 mg total) by mouth 2 (two) times daily. amLODIPine Take 5 mg by 0 Discon tinued (NORVASC) 5 MG mouth daily. 0 (S top Taking at tablet Discharge) Active Problems Problem Noted Date Acute ischemic stroke 09/12/2020 Received intravenous tissue plasminogen activator (tPA ) in emergency 09/12/2020 department Essential hypertension 09/12/2020 SIRS (systemic inflammatory response syndrome) 020 WILLIAM (acute kidney injury) 09/12/2020 Left-sided weakness 09/11/2020 Atrial fibrillation, new onset Encounters Date Type Specialty Care Team Description 09/13/2020 Orders Only General Internal Medicine 09/12/2020 Outside Orders Lab Jimmy Clifford 09/11/2020 - Hospital Cardiology Poornima Casanova, Acute isch emic stroke (HCC); 09/14/2020 Encounter Tee Essential hyper tension; Jacinto Esqueda Left-sided weakness; Navdeep, Received intrav enous tissue plasminogen activator (tPA) in emergency department; MD Alex SIRS (systemic inflammatory response syndrome) (HCC); Atrial fibrilla tion, new onset (HCC) after 09/15/2019 Social History Tobacco Use Types Packs/Day Years Used Date Never Assessed Sex Assigned at Date Recorded Not on file Last Filed Vital Signs Vital Sign Reading Time Taken Comments Blood Pressure 123/75 09/14/2020 9:00 AM [employer]PORT [employer] SALES AGENT Pulse 74 09/14/2020 9:00 AM [employer] SALES AGENT Temperature 36.3 C (97.3 F) 09/14/2020 9:00 AM FIN[employer] REPORT [employer]ICE SALES AGENT Respiratory Rate 19 09/14/2020 9:00 AM [employer]PORT [employer]ICE SALES AGENT Oxygen Saturation 96% 09/14/2020 9:00 AM FIN[employer] REPORT SERVICE SALES AGENT Inhaled Oxygen Concentration 21% 09/13/2020 11:21 PM FINANCIAL REPORT SERVICE SALES AGENT Weight 119.2 kg (262 lb 12.6 oz) 09/12/2020 2:23 PM FIN[employer] REPORT SERVICE SALES AGENT Height 172.7 cm (5' 8") 09/12/2020 2:23 PM FIN[employer] REPORT SERVICE SALES AGENT Body Mass Index 39.96 09/12/2020 2:23 PM FINANCIAL REPORT SERVICE SALES AGENT Plan of Treatment Health Maintenance Due Date Last Done Comments PNEUMOCOCCAL 65+ YRS (1 of 1 - [id number]) 1997 INFLUENZA VACCINE (#1) 2020 Medicare IPPE (WELCOME TO MEDICARE) 09/11/2020 Procedures Procedure Name Priority Date/Time Associated Comments Diagnosis CBC W/PLT COUNT & Routine 09/14/2020 6:04 Result s for this AUTO DIFFERENTIAL AM [employer] SALES AGENT procedure are in the results section. PHOSPHORUS Routine 09/14/2020 6:04 Results for this AM [employer]PORT [employer]ICE SALES AGENT procedure are i n the results section. MAGNESIUM Routine 09/14/2020 6:04 Results for this AM [employer]PORT SERVICE SALES AGENT procedure are i n the results section. BASIC METABOLIC PANEL Routine 09/14/2020 6:04 Re sults for this (7) AM [employer] REPORT SERVICE SALES AGENT procedure are i n the results section. CBC W/PLT COUNT & Routine 09/14/2020 6:04 Result s for this AUTO DIFFERENTIAL AM [employer] SALES AGENT procedure are in the results section. ECG 12-LEAD Routine 09/13/2020 5:12 Results for this PM [employer] SALES AGENT procedure are i n the results section. ECG 12-LEAD Routine 09/13/2020 5:12 PM FIN[employer]CIAL REPORT SERVICE SALES AGENT Procedure Note - Interface, External Ris In - 09/13/2020 4:18 PM FINANCIAL REPORT SERVICE SALES AGENT Ventricular Rate 72 BPM Atrial Rate 72 BPM P-R Interval 244 ms QRS Duration 100 ms Q-T Interval 386 ms QTC Calculation(Bazett) 422 ms P [place] 80 degrees R [place] -35 degrees T [place] 54 degrees Sinus rhythm with 1st degree A-V block with Premature supraventricular complexes Left axis deviation Anterior infarct , age undet ermined Abnormal ECG No previous ECGs available 2D ECHO W/ DOPPLER Routine 09/13/2020 12:56 PM FIN[employer]PORT [employer]ICE SALES AGENT Results for this (CW/PW/COLOR) procedure are in the results section . URINALYSIS W/ REFLEX URINE Routine 09/13/2020 12:46 PM FIN[employer] REPORT [employer]ICE SALES AGENT Results for this CULTURE procedure are i n the results section . C-REACTIVE PROTEIN Routine 09/13/2020 12:13 PM FIN[employer]PORT SERVICE SALES AGENT Results for this procedure are i n the results section . PROCALCITONIN Routine 09/13/2020 12:13 PM FIN[employer] REPORT SERVICE SALES AGENT Res ults for this procedure are i n the results section . TROPONIN I Routine 09/13/2020 10:36 AM FINANCIAL REPORT SERVICE SALES AGENT Resu lts for this procedure are i n the results section . VANCOMYCIN LEVEL, RANDOM Routine 09/13/2020 10:36 AM FIN[employer] REPORT SERVICE SALES AGENT Results for this procedure are i n the results section . CREATINE KINASE (CK) Add-On 09/13/2020 6:43 AM FINANCIAL REPORT SERVICE SALES AGENT Results for this procedure are i n the results section . PHOSPHORUS Routine 09/13/2020 6:43 AM FINANCIAL REPORT SERVICE SALES AGENT Resu lts for this procedure are i n the results section . MAGNESIUM Routine 09/13/2020 6:43 AM FINANCIAL REPORT SERVICE SALES AGENT Resu lts for this procedure are i n the results section . BASIC METABOLIC PANEL (7) Routine 09/13/2020 6:43 AM FIN[employer]PORT SERVICE SALES AGENT Results for this procedure are i n the results section . CBC W/PLT COUNT & AUTO Routine 09/13/2020 5:06 AM FINANCIAL REPORT SERVICE SALES AGENT Results for this DIFFERENTIAL procedure are i n the results section . TROPONIN I Routine 09/13/2020 5:06 AM FIN[employer] REPORT [employer]ICE SALES AGENT Resu lts for this procedure are i n the results section . HEMOGLOBIN A1C Routine 09/13/2020 5:06 AM FIN[employer]PORT [employer]ICE SALES AGENT Re sults for this procedure are i n the results section . CBC W/PLT COUNT & AUTO Routine 09/13/2020 5:06 AM FIN[employer]PORT [employer]ICE SALES AGENT Results for this DIFFERENTIAL procedure are i n the results section . CALCIUM, IONIZED STAT 09/12/2020 10:16 PM FIN[employer] REPORT [employer]ICE SALES AGENT Results for this procedure are i n the results section . TROPONIN I STAT 09/12/2020 10:16 PM FIN[employer] REPORT SERVICE SALES AGENT Resu lts for this procedure are i n the results section . PHOSPHORUS STAT 09/12/2020 10:16 PM FINAN[employer] REPORT SERVICE SALES AGENT Resu lts for this procedure are i n the results section . MAGNESIUM STAT 09/12/2020 10:16 PM FIN[employer] REPORT SERVICE SALES AGENT Resu lts for this procedure are i n the results section . BASIC METABOLIC PANEL (7) STAT 09/12/2020 10:16 PM FIN[employer]PORT [employer]ICE SALES AGENT Results for this procedure are i n the results section . BLOOD CULTURE Routine 09/12/2020 10:15 PM [employer] SALES AGENT MR BRAIN WITHOUT IV CONTRAST Routine 09/12/2020 6:11 PM [employer] SALES AGENT Results for this procedure are i n the results section . RAPID INFLUENZA A&B SCREEN Routine 09/12/2020 3:08 PM [employer]ENT Results for this procedure are i n the results section . RESPIRATORY PANEL SLHS Routine 09/12/2020 3:08 PM [employer] SALES AGENT Results for this procedure are i n the results section . SARS-COV2/RT-PCR (HS & REF Routine 09/12/2020 3:08 PM [employer]ICE SALES AGENT Results for this LABS) procedure are i n the results section . XR CHEST 1 VIEW Routine 09/12/2020 4:55 AM FIN[employer] REPORT [employer]ICE SALES AGENT R esults for this PORTABLE/BEDSIDE procedure a re in the results section . PROTHROMBIN TIME/INR Routine 09/12/2020 3:24 AM [employer] SALES AGENT Results for this procedure are i n the results section . HEPATIC FUNCTION PANEL Routine 09/12/2020 3:24 AM FIN[employer] SALES AGENT Results for this procedure are i n the results section . RPR Routine 09/12/2020 3:24 AM FIN[employer]ICE SALES AGENT Resu lts for this procedure are i n the results section . VITAMIN B12 AND FOLATE Routine 09/12/2020 3:24 AM [employer] SALES AGENT Results for this procedure are i n the results section . TSH/FREE T4 IF INDICATED Routine 09/12/2020 3:24 AM FIN[employer] SALES AGENT Results for this procedure are i n the results section . PROCALCITONIN Routine 09/12/2020 3:24 AM FINAN[employer] REPORT SERVICE SALES AGENT Res ults for this procedure are i n the results section . VANCOMYCIN LEVEL, RANDOM Routine 09/12/2020 3:24 AM FIN[employer]ICE SALES AGENT Results for this procedure are i n the results section . LACTIC ACID, VENOUS Routine 09/12/2020 1:33 AM FIN[employer] REPORT SERVICE SALES AGENT Results for this procedure are i n the results section . CBC W/PLT COUNT & AUTO Routine 09/12/2020 1:25 AM FIN[employer] REPORT [employer]ICE SALES AGENT Results for this DIFFERENTIAL procedure are i n the results section . CBC W/PLT COUNT & AUTO Routine 09/12/2020 1:25 AM FIN[employer] REPORT SERVICE SALES AGENT Results for this DIFFERENTIAL procedure are i n the results section . COMPREHENSIVE METABOLIC Routine 09/12/2020 1:25 AM FIN[employer]PORT [employer]ICE SALES AGENT Results for this PANEL procedure are i n the results section . LIPID PANEL Routine 09/12/2020 1:25 AM FINAN[employer]PORT [employer]ICE SALES AGENT Resu lts for this procedure are i n the results section . PHOSPHORUS Routine 09/12/2020 1:25 AM FIN[employer]PORT [employer]ICE SALES AGENT Resu lts for this procedure are i n the results section . MAGNESIUM Routine 09/12/2020 1:25 AM FIN[employer]ICE SALES AGENT Resu lts for this procedure are i n the results section . BLOOD CULTURE Routine 09/12/2020 1:25 AM FIN[employer]PORT [employer]ICE SALES AGENT after 09/15/2019 Results CBC with platelet count + automated diff (09/14/2020 6:04 AM FINANCIAL REPORT SERVICE SALES AGENT)Only the most recent of3 resultswithin the time period is included. Pathologist Sig nature WBC 7.4 3.5 - 10.5 [facility] K/L [facility] RBC 3.98 (L) 4.63 - 6.08 [facility] M/L [facility] Hemoglobin 12.3 (L) 13.7 - 17.5 [facility] GM/DL [facility] Hematocrit 38.0 (L) 40.1 - 51.0 % [facility] MCV 95.5 (H) 79.0 - 92.2 fL [facility] MCH 30.9 25.7 - 32.2 pg [facility] MCHC 32.4 32.3 - 36.5 [facility] GM/DL [facility] RDW 13.0 11.6 - 14.4 % [facility] Platelets 186 150 - 450 K/CU [facility] MPV 10.4 9.4 - 12.4 fL [facility] nRBC 0 0 - 0 /100 WBC [facility] % Neutros 64 % [facility] % Lymphs 23 % [facility] % Monos 11 % [facility] % Eos 2 % [facility] % Baso 0 % [facility] # Neutros 4.74 1.78 - 5.38 [facility] # Lymphs 1.68 1.32 - 3.57 [facility]/L [facility] # Monos 0.79 0.30 - 0.82 [facility]/L [facility] # Eos 0.14 0.04 - 0.54 [facility]/L [facility] # Baso 0.01 0.01 - 0.08 [facility] Immature 1 0 - 1 % [facility] Specimen Blood Performing Organization Address City/[facility] Phone Number [address] [address] CENTER Phosphorus (09/14/2020 6:04 AM FINANCIAL REPORT SERVICE SALES AGENT)Only the most recent of4 resultswithin the time period is included. Pathologist Sig nature Phosphorus 2.9 2.3 - 4.7 mg/dL [facility] Specimen Blood Narrative Performed At Manager Data Warehousing ID - [facility] Performing Organization Address [facility] Phone Number [address] [address] CENTER Magnesium (09/14/2020 6:04 AM FINANCIAL REPORT SERVICE SALES AGENT)Only the most recent of4 resultswithin the time period is included. Pathologist Sig nature Magnesium 1.9 1.6 - 2.6 mg/dL [facility] Specimen Blood Narrative Performed At Manager Data Warehousing ID - [facility] Performing Organization Address City/[facility]/Zipcode Phone Number [address] [address] CENTER Basic Metabolic Panel (09/14/2020 6:04 AM FINANCIAL REPORT SERVICE SALES AGENT)Only the most recent of3 results within the time period is included. Sodium 136 136 - 145 meq/L [facility] Potassium 4.2 3.5 - 5.1 meq/L [facility] Chloride 103 98 - 107 meq/L [facility] CO2 26 22 - 29 meq/L [facility] BUN 26 (H) 7 - 21 mg/dL [facility] Creatinine 1.32 (H) 0.57 - 1.25 [facility] mg/dL [facility] Glucose 125 (H) 70 - 105 mg/dL [facility] Calcium 9.4 8.4 - 10.2 [facility] mg/dL [facility] EGFR 51Comment: ESTIMATED mL/min/1.73 sq [facility] GFR IS NOT m [facility] [place] CREATININE CLEARANCE IN PREDICTING GLOMERULAR FILTRATION RATE. ESTIMATED GFR IS NOT APPLICABLE FOR DIALYSIS PATIENTS. Specimen Blood Narrative Performed At Manager Data Warehousing ID - [facility] Performing Organization Address City/State/Zipcode Phone Number [facility] [address] [place] [address] CENTER ECG 12 lead (09/13/2020 5:12 PM FINANCIAL REPORT SERVICE SALES AGENT) Specimen Narrative Performed At Ventricular Rate 72 BPM GE MUSE Atrial Rate 72 BPM P-R Interval 244 ms QRS Duration 100 ms Q-T Interval 386 ms QTC Calculation(Bazett) 422 ms P [place] 80 degrees R [place] -35 degrees T [place] 54 degrees Sinus rhythm with 1st degree A-V block with Premature supraventricular complexes Left axis deviation Anterior infarct , age undetermined Abnormal ECG No previous ECGs available Confirmed by MD BRIAN, DANY Anaya ([id number]) on 09/14/20 6:30:28 AM Procedure Note Interface, External Ris In - 09/14/2020 6:30 AM FIN[employer] REPORT [employer]ICE SALES AGENT Ventricular Rate 72 BPM Atrial Rate 72 BPM P-R Interval 244 ms QRS Duration 100 ms Q-T Interval 386 ms QTC Calculation(Bazett) 422 ms P [place] 80 degrees R [place] -35 degrees T [place] 54 degrees Sinus rhythm with 1st degree A-V block w ith Premature supraventricular complexes Left axis deviation Anterior infarct , age undetermined Abnormal ECG No previous ECGs available Confirmed by MD BRIAN, DANY Anaya ([id number]) on 09/14/2020 6:30:28 AM Performing Organization Address City/State/Zipcode Phone Number [facility] 2D Echo W/Doppler(CW/PW/Color) (09/13/2020 12:56 PM FINANCIAL REPORT SERVICE SALES AGENT) Pathologist Sig nature Ejection Fraction [facility] Specimen Narrative Performed At Transthoracic Echocardiography Report (T TE) [facility]CHO [facility] Demographics Patient Name ALEKSANDRA, Date of Study 09/13/2020 STEFAN Gender Male Visit Number [id number] Race Unknown Room Number 2450 Number Date of 1930 Referring TEE Anaya Physician AYANNA 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 Clinical History HTN, Dementia, WILLA, Hypothyroidism HGB 11.8 HCT 37.1 % Contrast Medium: Definity. Height: 68 inches Weight: 118.84 kg (262 lbs) BSA: 2.29 m^2 BMI: 39.84 kg/m^2 HR: 81 bpm BP: 114/75 mmHg Summary Normal left ventricular chamber size. No apparent segmental wall motion abnormalities. Estimated LVEF by qualitative assessment is normal (55-60%) . IV saline contrast injection was negative for a PFO (patent foramen ovale) at rest and post Valsalva . Estimated peak systolic PA pressure is 25-30 mmHg (normal range) . Signature Findings Left Ventricle LV endocardium is adequately visualized with IV ultrasound enhancing agent. Normal left ventricular chamber size. Normal wall thickness. Normal overall left ventricular systolic function. No appare nt segmental wall motion abnormalities. Global LV systolic function normal . Estimated LVEF by qualitative assessment is normal (55-60%) . Left Atrium LA size is normal . Right Ventricle Normal right ventricle structure and function. Right Atrium Normal righ t atrium. Atrial Septum IV saline contrast injection was negative for a PFO (patent foramen ovale) at rest and post Valsalva . Aortic Valve Mild AoV cusp thickening. Mild AoV cusp calcification. Mitral Valve Mild MV leaflet thickening. Mild mitral annular calcification. Trace mitral regurgitation. Tricuspid Valve Mild tricuspid regurgitation. Estimated peak systolic PA pressure is 25-30 mmHg (normal range) . Pulmonic Valve Normal PV structure and function by limited views and Doppler. Aorta Aortic root size (SInus of Valsalva diameter) is norm al . Pericardium No evidence of pericardial effusion. IVC/SVC/PA/PV/Pleural The estimated RA pressure by IVC dynamics 0-5mmHg . Chambers/Structures Left Atrium LA Volume: 57.4 ml LA Area: 19.81 cm^2 LA Vol. Index: 25 ml/m^2 Left Ventricle LVIDd: 4.51 cm LVEDV:92.88 ml LVIDs: 4 cm LVESV:63.79 ml LV Septum Diastolic: 0.85 cm LVEF 2D Cube: 30.4 % LV PW Diastolic: 0.95 cm LV PW Systolic: 3.94 cm LV Length: 8.63 cm LVEDV Pickard's:117.41 ml LV FS: 11.3 % LVESV Pickard's:46.34 ml LVEF Pickard's: 60.5 % LVEDVI: 51 ml/m^2 LVESVI: 20 ml/m^2 LVOT Diameter: 2.41 cm LVEF: 31.3 % Doppler/Quantitative Measurements Mitral Valve MV Peak E-Wave: 0.78 m/s MV Peak A-Wave: 0.48 m/s E/A Ratio: 1.6 Peak Gradient: 2.4 mmHg Deceleration Time: 210 msec MV Tyshawn. Peak: Tissue Doppler E' Lateral Velocity: 0.09 m/s A' Lateral Velocity: 0.07 m/s E/E': 8.67 Aortic Valve Peak Velocity: 1.74 m/s Mean Velocity: 1.22 m/s Peak Gradient: 12.17 mmHg Mean Gradient: 6.57 mmHg AV Area (continuity): 2.66 cm^2 AV VTI: 31.38 cm AV DVI: 0.58 LVOT Peak Velocity: 0.92 m/s Peak Gradient: 3.39 mmHg Mean Velocity: 0.62 m/s Mean Gradient: 1.8 mmHg LVOT Diameter: 2.41 cm LVOT VTI: 18.29 cm LVOT Area: 4.56 cm^2 LVOT SV:83.39 ml LVOT CO: 6.75 l/min LVOT CI: 2.95 l/min/m^2 Tricuspid Valve TR Velocity: 2.43 m/s TR Gradient: 23.63 mmHg Procedure Note Interface, External Ris In - 09/13/2020 3:28 PM FINANCIAL REPORT SERVICE SALES AGENT Transthoracic Echocardiography Report (TTE) Demographics Patient Name ALEKSANDRA, Date of S tudy 09/13/2020 STEFAN Gender Male Visit Number [id number] Race Unknown Room Numb er 2450 Number Date of 1930 Referring TEE Anaya Physician AYANNA 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 Clinical History HTN, Dementia, WILLA, Hypothyroidism HGB 11.8 HCT 37.1 % Contrast Medium: Definity. Height: 68 inches Weight: 118.84 kg (262 lbs) BSA: 2.29 m^2 BMI: 39.84 kg/m^2 HR: 81 bpm BP: 114/75 mmHg Summary Normal left ventricular chamber size. N o apparent segmental wall motion abnormalities. Estimated LVEF by qualit ative assessment is normal (55-60%) . IV saline contrast injection was negati ve for a PFO (patent foramen ovale) at rest and post Valsalva . Estimated peak systolic PA pressure is 25-30 mmHg (normal range) . Signature Findings Left Ventricle LV endocardium i s adequately visualized with IV ultrasound enhan cing agent. Normal left ventricular chamber size. No rmal wall thickness. Normal overall left ventricular systolic function. No apparent segmental wall m otion abnormalities. Global LV systolic functio n normal . Estimated LVEF by qualitative asse ssment is normal (55-60%) . Left Atrium LA size is justyna l . Right Ventricle Normal right tamica tricle structure and function. Right Atrium Normal right atr ium. Atrial Septum IV saline contra st injection was negative for a PFO (patent foramen ovale) at rest and post Valsalva . Aortic Valve Mild AoV cusp th ickening. Mild AoV cusp ca lcification. Mitral Valve Mild MV leaflet thickening. Mild mitral annular calcification. T race mitral regurgitation. Tricuspid Valve Mild tricuspid r egurgitation. Estimated peak s ystolic PA pressure is 25-30 mmHg (normal range) . Pulmonic Valve Normal PV struct ure and function by limited views and Doppler. Aorta Aortic root size (SInus of Valsalva diameter) is normal . Pericardium No evidence of p ericardial effusion. IVC/SVC/PA/PV/Pleural The estimated RA pressure by IVC dynamics 0-5mmHg . Chambers/Structures Left Atrium LA Volume: 57.4 ml LA Area: 19.81 cm^2 LA Vol. Index: 25 ml/m^2 Left Ventricle LVIDd: 4.51 cm LVEDV:92.88 ml LVIDs: 4 cm LVESV:63.79 ml LV Septum Diastolic: 0.85 cm LVEF 2D Cube: 30.4 % LV PW Diastolic: 0.95 cm LV PW Systolic: 3.94 cm LV Length: 8.63 cm LVEDV Pickard's:117.41 ml LV FS: 11.3 % LVESV Pickard's:46.34 ml LVEF Pickard's: 60.5 % LVEDVI: 51 ml/m^2 LVESVI: 20 ml/m^2 LVOT Diameter: 2.41 cm LVEF: 31.3 % Doppler/Quantitative Measurements Mitral Valve MV Peak E-Wave: 0.78 m/s M V Peak A-Wave: 0.48 m/s E /A Ratio: 1.6 P eak Gradient: 2.4 mmHg D eceleration Time: 210 msec MV Tyshawn. Peak: Tissue Doppler E' Lateral Velocity: 0.09 m/s A ' Lateral Velocity: 0.07 m/s E /E': 8.67 Aortic Valve Peak Velocity: 1.74 m/s Mean Velocity: 1.22 m/s Peak Gradient: 12.17 mmHg Mean Gradient: 6.57 mmHg AV Area (continuity): 2.66 cm^2 AV VTI: 31.38 cm AV DVI: 0.58 LVOT Peak Velocity: 0.92 m/s Pea k Gradient: 3.39 mmHg Mean Velocity: 0.62 m/s Samanta n Gradient: 1.8 mmHg LVOT Diameter: 2.41 cm LVO T VTI: 18.29 cm LVOT Area: 4.56 cm^2 LVO T SV:83.39 ml LVOT CO: 6.75 l/min LVO T CI: 2.95 l/min/m^2 Tricuspid Valve TR Velocity: 2.43 m/s TR Gradient: 23.63 mmHg Performing Organization Address City/State/Zipcode Phone Number [facility] Urinalysis w/Microscopic + Reflex to Culture (09/13/2020 12:46 PM FINANCIAL REPORT SERVICE SALES AGENT) Color, UA Yellow [facility] Clarity, UA Hazy [facility] Specific Procious, 1.036 (H) 1.001 - 1.035 [facility] pH, UA 5.5 5.0 - 8.0 [facility] Protein, UA 100 mg/dL (A) Negative [facility] Glucose, UA Negative Negative [facility] Ketones, UA Negative Negative [facility] Bilirubin, UA Negative Negative [facility] Blood, UA Large (A) Negative [facility] Nitrite, UA Negative Negative [facility] Leukocytes, UA Negative Negative [facility] Urobilinogen, UA 0.2 0.2 - 1.0 mg/dL [facility] RBC, UA 2 /HPF [facility] WBC, UA 4 /HPF [facility] Mucus Few [facility] Squam Epithel, UA <1 /HPF [facility] Hyaline Casts, UA 4 /LPF [facility] Specimen Source [facility] Specimen Urine - Urine specimen collection, clean catch (procedure) Narrative Performed At Manager Data Warehousing ID - [auto] [facility] Manager Data Warehousing ID - tech Performing Organization Address [facility] Phone Number [address] [address] [place] Procalcitonin (09/13/2020 12:13 PM FINANCIAL REPORT SERVICE SALES AGENT)Only the most recent of2 resultswithin the time period is included. Pathologist Sig nature Procalcitonin 2.15 (H) <0.05 ng/mL [facility] Specimen Blood Narrative Performed At SEPSIS RISK (ng/mL) [facility] Low: 0.05-0.50 Intermediate: 0.51-2.00 High: >=2.01 Performing Organization Address [facility] Phone Number [address] [address] [place] C-Reactive Protein (09/13/2020 12:13 PM FINANCIAL REPORT SERVICE SALES AGENT) Pathologist Sig nature CRP 14.49 (H) 0.00 - 0.50 mg/dL [facility] Specimen Blood Narrative Performed At Manager Data Warehousing ID - [email or web address] [facility] Performing Organization Address City/State/Zipcode Phone Number [address] [address] CENTER Troponin I (09/13/2020 10:36 AM FINANCIAL REPORT SERVICE SALES AGENT)Only the most recent of3 resultswithin the time period is included. Pathologist Sig nature Troponin I 0.05 (H) 0.00 - 0.03 ng/mL [facility] Specimen Blood Narrative Performed At Troponin I (TnI) levels must be interpreted [facility] in the context of the presenting symptoms and the clinical findings. Elevated TnI levels indicate myocardial damage, but are not specific for ischemic heart disease. Elevated TnI levels are seen in patients with other cardiac conditions (including myocarditis and congestive heart failure), and slight TnI elevations occur in patients with other conditions, including sepsis, renal failure, acidosis, acute neurological disease, and persistent tachyarrhythmia. Manager Data Warehousing ID - AIDEN Performing Organization Address City/[facility]/Zipcode Phone Number [address] [address] CENTER Vancomycin level, random (09/13/2020 10:36 AM FINANCIAL REPORT SERVICE SALES AGENT)Only the most recent of2 resultswithin the time period is included. Pathologist Sig nature Vancomycin Rm 4.0 ug/mL [facility] [place] Specimen Blood Narrative Performed At Reference Range: No Normals [facility] Manager Data Warehousing ID - AIDEN Performing Organization Address City/State/Zipcode Phone Number [address] [address] CENTER Creatine Kinase (CK) (09/13/2020 6:43 AM FINANCIAL REPORT SERVICE SALES AGENT) Pathologist Sig nature Total CK 5,809 (H) 29 - 200 U/L [facility] Specimen Blood Narrative Performed At Manager Data Warehousing ID - EDRENAY [facility] Manager Data Warehousing ID - EDASI Performing Organization Address City/[facility]/Zipcode Phone Number [facility] [address] [place] [address] [place] Hemoglobin A1c (09/13/2020 5:06 AM FINANCIAL REPORT SERVICE SALES AGENT) Pathologist Sig nature Hemoglobin A1C 5.5 4.3 - 6.1 % [facility] Specimen Blood Performing Organization Address City/[facility]/Zipcode Phone Number [facility] [address] [place] [address] [place] Calcium, Ionized (09/12/2020 10:16 PM FINANCIAL REPORT SERVICE SALES AGENT) Pathologist Sig nature Calcium, Ion 1.13 1.12 - 1.27 mmol/L [facility] pH, Blood 7.44 [facility] Specimen Blood Performing Organization Address [facility] Phone Number [address] [address] [place] MR brain without IV contrast (09/12/2020 6:11 PM FINANCIAL REPORT SERVICE SALES AGENT) Specimen Narrative Performed At FINAL REPORT [place] [facility] Exam: MRI brain without contrast. Comparison: None. Clinical indication: Stroke, follow up Technique: Multiplanar multi sequential MR imaging of the brain was performed without the administration of intravenous contrast. Findings: There is generalized parenchymal atrophy . There are mild white matter microvascula r ischemic changes There is no intracranial mass, mass effe ct, extra-axial collection, hydrocephalus or herniation. There is no restricted diffusion to suggest an acute infarct. There is no ab normality on susceptibility sequences to suggest hemorrhage or hemos iderin deposition. The skull base flow-voids are seen in ke eping with their patency. There is mild bilateral ethmoid sinus mu cosal thickening. The mastoid air cells are clear. There are bilateral lens replacements. T he sella and parasellar regions are unremarkable. The cranioc ervical junction is normal. Impression: Mild white matter microvascular ischemic changes. No acute infarct, hemorrhage or mass eff ect. Signed: Angle Caceres MD Report Verified Date/Time: 09/12/2020 22:50:10 Procedure Note Interface, External Ris In - 09/12/2020 10:52 PM FINANCIAL REPORT SERVICE SALES AGENT FINAL REPORT Exam: MRI brain without contrast. Comparison: None. Clinical indication: Stroke, follow up Technique: Multiplanar multi sequential MR imaging of the brain was performed without the administration of intravenous contrast. Findings: There is generalized parenchymal atrophy . There are mild white matter microvascula r ischemic changes There is no intracranial mass, mass effe ct, extra-axial collection, hydrocephalus or herniation. There is n o restricted diffusion to suggest an acute infarct. There is no ab normality on susceptibility sequences to suggest hemorrhage or hemos iderin deposition. The skull base flow-voids are seen in ke eping with their patency. There is mild bilateral ethmoid sinus mu cosal thickening. The mastoid air cells are clear. There are bilateral lens replacements. T he sella and parasellar regions are unremarkable. The cranioce rvical junction is normal. Impression: Mild white matter microvascular ischemic changes. No acute infarct, hemorrhage or mass eff ect. Signed: Angel Caceres MD Report Verified Date/Time: 09/12/2020 2 2:50:10 Performing Organization Address City/State/Zipcode Phone Number RIS SARS-CoV2/RT-PCR (Asymptomatic ONLY) (09/12/2020 3:08 PM FINANCIAL REPORT SERVICE SALES AGENT) SARS-COV2/RT-PCR Negative Not Detected, [facility] Negative, See [facility] external report CENTER for linked test SARS-COV-2 [facility] PERFORMING LAB [facility] Specimen Other - Nasopharyngeal wall structure (b fabiola structure) Narrative Performed At Negative results do not preclude SARS-CoV-2 [facility] infection and should not be used as the sole basis for patient management decisions. Negative results must be combined with clinical observations, patient history, and epidemiological information. A false negative result may occur if a specimen is improperly collected, transported or handled. The limit of detection for this assay is 250 copies/mL. This SARS CoV-2 test is a rapid, real-time RT-PCR test intended for the qualitative detection of nucleic acid from SARS-CoV-2 in a nasopharyngeal swab specimen collected from individuals suspected of COVID-19 by their healthcare provider. This test has not been Food and Drug Administration (FDA) cleared or approved and has been authorized by FDA under an Emergency Use Authorization (EUA). This EUA will be effective until the declaration that circumstances exist justifying the authorization of the emergency use of in vitro diagnostic tests for detection and/or diagnosis of COVID-19 is terminated under Section 564(b)(2) of the Act or the EUA is revoked under Section 564(g) of the Act. Fact Sheet for Healthcare Providers: https://www.[employer]/Documents/Xpert%20Xpre ss%20SARS%20CoV-2/Fact%20Sheets/302-3802%20SAR S-COV-2%20HEALTHCARE%20PROVIDERS%20FACT%20SHEE T.pdf Fact Sheet for Healthcare Patients: https://www.[employer]/Documents/Xpert%20Xpre ss%20SARS%20CoV-2/Fact%20Sheets/3023801%20SAR S-COV-2%20PATIENT%20FACT%20SHEET.pdf Performing Laboratory: [address] [place] [address] Performing Organization Address City/State/Zipcode Phone Number [place] [phone] CENTER Respiratory Panel [facility] (09/12/2020 3:08 PM FINANCIAL REPORT SERVICE SALES AGENT) Human Metapneumovirus Not detected Not detected, [facility] Rhinovirus Not detected Not detected, [facility] Influenza A Not detected Not detected, [facility] INFLUENZA A (NO [facility] SUBTYPE) [facility] Influenza A subtype H1 [facility] Influenza A Subtype H3 [facility] Influenza A Subtype [facility] H1-2009 [facility] Influenza B Not detected Not detected, [facility] Respiratory Syncytial Not detected Not detected, [facility] Virus [facility] Parainfluenza Virus 1 Not detected Not detected, [facility] Parainfluenza Virus 2 Not detected Not detected, [facility] Parainfluenza virus 3 Not detected Not detected, [facility] Parainfluenza Virus 4 Not detected Not detected, [facility] Adenovirus Not detected Not detected, [facility] Coronavirus 229E Not detected Not detected, [facility] Coronavirus HKU1 Not detected Not detected, [facility] Coronavirus NL63 Not detected Not detected, [facility] Coronavirus OC43 Not detected Not detected, [facility] Bordetella Pertussis Not detected Not detected, [facility] Chlamydophila Not detected Not detected, [facility] Pneumoniae [facility] Mycoplasma Pneumoniae Not detected Not detected, [facility] Specimen Nasopharyngeal - Nasopharyngeal wall str ucture (body structure) Narrative Performed At Other viruses and bacteria not targeted by [facility] this PCR panel cannot be excluded; therefore clinical correlation and follow up of serology, culture results, and other molecular studies is required. The results are not intended to be used as the sole means for clinical diagnosis or patient management decisions. This sample was tested at the [facility] Molecular Diagnostics Laboratory using the [employer] FilmArray Respiratory Panel. It is FDA cleared and has been verified and approved by the [facility] Molecular Diagnostics Laboratory for clinical use on nasopharyngeal swab specimens. The performance of the FilmArray RP has not been established in individuals who received influenza vaccine. Recent administration of a nasal influenza vaccine may cause false positive results for Influenza A and/or Influenza B. Performing Organization Address City/State/Zipcode Phone Number [facility] [address] [place] [address] CENTER Rapid Influenza A&B Screen (09/12/2020 3:08 PM FINANCIAL REPORT SERVICE SALES AGENT) Rapid Influenza A Negative Negative, [facility] Antigen Inconclusive [facility] Rapid influenza B Negative Negative, [facility] Antigen Inconclusive [facility] Specimen Nasal - Nasopharyngeal wall structure (b fabiola structure) Performing Organization Address City/State/Zipcode Phone Number [facility] [address] [place] [address] CENTER XR chest 1 view portable / bedside (09/12/2020 4:55 AM FINANCIAL REPORT SERVICE SALES AGENT) Specimen Narrative Performed At FINAL REPORT GE RIS RAD, CHEST, 1 VIEW, NON DEPT CLINICAL INDICATION: FEVER of unknown or igin TECHNIQUE: AP view of the chest COMPARISON: None FINDINGS: Lung volumes are low with bibasilar stre aky atelectasis. No focal consolidation, pleural effusion, or pneu mothorax. The right costophrenic angle is incompletely image d. Cardiomediastinal silhouette, carolin, and pulmonary vasculat ure are within normal limits. No acute osseous abnormalities. IMPRESSION: Low lung volumes. No evidence of pneumon ia or other acute cardiopulmonary abnormality. Signed: Hank Mar MD Report Verified Date/Time: 09/12/2020 11:52:04 Procedure Note Interface, External Ris In - 09/12/2020 11:54 AM FINANCIAL REPORT SERVICE SALES AGENT FINAL REPORT RAD, CHEST, 1 VIEW, NON DEPT CLINICAL INDICATION: FEVER of unknown or igin TECHNIQUE: AP view of the chest COMPARISON: None FINDINGS: Lung volumes are low with bibasilar stre aky atelectasis. No focal consolidation, pleural effusion, or pneu mothorax. The right costophrenic angle is incompletely image d. Cardiomediastinal silhouette, carolin, and pulmonary vasculat ure are within normal limits. No acute osseous abnormalities. IMPRESSION: Low lung volumes. No evidence of pneumon ia or other acute cardiopulmonary abnormality. Signed: Hank Mar MD Report Verified Date/Time: 09/12/2020 1 1:52:04 Performing Organization Address City/[facility] Phone Number [place] [facility] Vitamin B12 and Folate (09/12/2020 3:24 AM FINANCIAL REPORT SERVICE SALES AGENT) Pathologist Sig nature Vitamin B12 278 213 - 816 pg/mL [facility] Folate 26.60 >=7.00 ng/mL [facility] Specimen Blood Narrative Performed At Manager Data Warehousing ID - [facility] Manager Data Warehousing ID - [facility] Performing Organization Address City/[facility] Phone Number [address] [address] CENTER TSH/Free T4 If Indicated (09/12/2020 3:24 AM FINANCIAL REPORT SERVICE SALES AGENT) Pathologist Sig nature TSH 0.555 0.350 - 4.940 uIU/mL [facility] Specimen Blood Narrative Performed At Manager Data Warehousing ID - [facility] Performing Organization Address City/[facility] Phone Number [address] [address] CENTER RPR (09/12/2020 3:24 AM FINANCIAL REPORT SERVICE SALES AGENT) Pathologist Sig nature RPR Nonreactive Nonreactive [facility] Specimen Blood Performing Organization Address [facility] Phone Number [address] [address] CENTER Prothrombin time/INR (09/12/2020 3:24 AM FINANCIAL REPORT SERVICE SALES AGENT) Pathologist Sig nature Protime 15.6 (H) 11.9 - 14.2 seconds [facility] INR 1.28 <=5.90 [facility] Specimen Blood Narrative Performed At Effective 03/26/2019: PT Reference Range [facility] Change New: 11.9-14.2 Previous: 11.7-14.7 RECOMMENDED COUMADIN/WARFARIN INR THERAPY RANGES STANDARD DOSE: 2.0-3.0 Includes: PROPHYLAXIS for venous thrombosis, systemic embolization; TREATMENT for venous thrombosis and/or pulmonary embolus. HIGH RISK: Target INR is 2.5-3.5 for patients wiht mechanical heart valves. Performing Organization Address [facility]/Zipcode Phone Number [address] [address] [place] Hepatic function panel (09/12/2020 3:24 AM FINANCIAL REPORT SERVICE SALES AGENT) Pathologist Sig nature Protein, Total 6.4 6.0 - 8.3 gm/dL [facility] Albumin 3.6 3.5 - 5.0 g/dL [facility] Total Bilirubin 0.6 0.2 - 1.2 mg/dL [facility] Bilirubin, Direct 0.4 0.1 - 0.5 mg/dL [facility] Alkaline Phosphatase 44 40 - 150 U/L [facility] AST 139 (H) 5 - 34 U/L [facility] ALT 33 6 - 55 U/L [facility] Specimen Blood Narrative Performed At Manager Data Warehousing ID - [facility] [place] Performing Organization Address [facility] Phone Number [address] [address] [place] Lactic acid, venous (09/12/2020 1:33 AM FINANCIAL REPORT SERVICE SALES AGENT) Pathologist Sig nature Lactate, Venous 1.01 0.50 - 2.20 mmol/L [facility] Specimen Blood Narrative Performed At Manager Data Warehousing ID - [facility] [place] Performing Organization Address [facility]/Zipcode Phone Number [address] [address] [place] Fasting lipid panel (09/12/2020 1:25 AM FINANCIAL REPORT SERVICE SALES AGENT) Pathologist Sig nature Triglycerides 54 mg/dL [facility] Cholesterol 141 mg/dL [facility] HDL 44 mg/dL [facility] LDL Calculated 86 mg/dL [facility] Specimen Blood Narrative Performed At Triglyceride Reference Range: [facility] Low Risk <150 Borderline 150-199 High Risk 200-499 Very High Risk >=500 Cholesterol Reference Range: Low Risk <200 Borderline 200-239 High Risk >240 HDL Cholesterol Reference Range: Low Risk >=60 High Risk <40 LDL Cholesterol Reference Range: Optimal <100 Near Optimal 100-129 Borderline 130-159 High 160-189 Very High >=190 Manager Data Warehousing ID - EDASI Performing Organization Address City/State/Zipcode Phone Number [facility] [address] [place] [address] [place] Comprehensive metabolic panel (09/12/2020 1:25 AM FINANCIAL REPORT SERVICE SALES AGENT) Protein, Total 6.4 6.0 - 8.3 [facility] gm/dL [facility] Albumin 3.6 3.5 - 5.0 [facility] g/dL [facility] Alkaline 46 40 - 150 U/L [facility] Phosphatase [facility] Total Bilirubin 0.7 0.2 - 1.2 [facility] mg/[facility] Sodium 137 136 - 145 [facility] meq/L [facility] Potassium 3.9 3.5 - 5.1 [facility] meq/L [facility] Chloride 103 98 - 107 [facility] meq/L [facility] CO2 26 22 - 29 meq/L [facility] BUN 24 (H) 7 - 21 mg/dL [facility] Creatinine 1.38 (H) 0.57 - 1.25 [facility] mg/dL [facility] Glucose 136 (H) 70 - 105 [facility] mg/dL [facility] Calcium 8.8 8.4 - 10.2 [facility] mg/dL [facility] AST 122 (H) 5 - 34 U/L [facility] ALT 31 6 - 55 U/L [facility] EGFR 49Comment: mL/min/1.73 [facility] ESTIMATED GFR IS sq [facility] NOT ACCURATE MEDICAL CENTER CREATININE CLEARANCE IN PREDICTING GLOMERULAR FILTRATION RATE. ESTIMATED GFR IS NOT APPLICABLE FOR DIALYSIS PATIENTS. Specimen Blood Narrative Performed At Manager Data Warehousing ID - AIDEN [facility] Performing Organization Address City/State/Zipcode Phone Number [facility] [address] [place] [address] CENTER after 09/15/2019 Insurance Payer Benefit Plan / Subscriber ID Effective Dates Phone Addre ss Type Group [employer] [id number] 2020-Present MGD CARE Advance Directives For more information, please contact: [phone] Code Status Date Activated Date Inactivated Comments Full Code 09/11/2020 11:27 PM 09/14/2020 1:57 PM This code status was determined by: Patient
--- OUTSIDE RECORDS SUMMARY | 2020-09-15 19:14 | XMS REPORT | Continuity of Care Document ---
:[address] [facility] t Address [address] [place] [address] Care Team Providers Name Role Phone Dheeraj Santana MD Attending Clinician [phone] Navdeep JOHNSON Attending Clinician Darrin Attending Clinician Unavailable DHEERAJ SANTANA Attending Clinician Unavail able DHEERAJ SANTANA Admitting Clinician Unavail able Payers Payer Name Policy Type Policy Effective Date Expiration Date Sour ce Number [employer] MEDICARE [id number] [address] [facility] 00:00[facility]00 - Medica l [id number] Center /2019-Present Problems Condition Condition Condition Status Onset Resolution Last Treating Co mments Source Name Details Category Date Date Treatment Clinician Date Acute Acute Disease Active 2019-[address] [facility] ischemic ischemic -15 [place] - stroke stroke 00:00: Medical 00 Center Received Received Disease Active 2019-10 [facility]ou -15 [place] - s tissue s tissue 00:00: Medica l plasminoge plasminoge 00 Ce nter n n activator activator (tPA) in (tPA) in emergency emergency department department Essential Essential Disease Active 2019-[address] [facility] hypertensi hypertensi 1-15 [place] - on on 00:00: Medical 00 Center SIRS SIRS Disease Active 2019-[address] [facility] (systemic (systemic -15 Luke s - inflammato inflammato 00:00: Me dical ry ry 00 Center response response syndrome) syndrome) WILLIAM (acute WILLIAM (acute Disease Active 2019-[address] kidney kidney 1-15 [facility] - injury) injury) 00:00: Medical 00 [place] Left-sided Left-sided Disease Active 2019-[address] weakness weakness 1-14 [facility] - 00:[facility]: Medical 00 [place] Atrial Atrial Disease Active [facility] fibrillati fibrillati [place] - on, new on, new Medical onset onset Center Allergies, Adverse Reactions, Alerts This patient has no known allergies or adverse reactions. Social History Social Habit Start Date Stop Date Quantity Comments Source Sex Assigned At [facility] Medications Ordered Filled Start Stop Current Ordering Indication Dosage Frequency Signature Comments Components Source Medication Medication Date Date Medication? Clinician (SIG) Name Name levothyroxi 2019-10 Yes 75ug Take [address] [facility] ne 1-17 mcg by [facility] - (SYNTHROID, 11:57: mouth Medic al LEVOTHROID) 33 Every Center 75 MCG morning on tablet an empty stomach. amLODIPine 2019-10- No 5mg QD Take [address] (NORVASC) 5 11-14 by mouth Britney es - MG tablet 09:44: 00:00 daily. Medic al 54 :00 [place] metoprolol 2019-10- Yes 12.5mg Q.5D Take 0.[address] tartrate 11-14 tablets [facility] - (LOPRESSOR) 00:00: 23:59 (12.5 mg M edical 25 MG 00 :00 total) by Center tablet mouth 2 (two) times daily. apixaban 2019-10- Yes 5mg Q.5D Take [address] (ELIQUIS) 5 11-14-15 tablet (5 [place] - mg Tab 00:00: 23:59 mg total) Medic al tablet 00 :00 by mouth 2 Center (two) times daily for 90 days. Vital Signs Vital Name Observation Time Observation Value Comments Source Systolic blood 2020-09-14 09:00:00 123 mm[Hg] [facility] Diastolic blood 2020-09-14 09:00:00 75 mm[Hg] [facility] S [facility] Heart rate 2020-09-14 09:00:00 74 /min [facility] L [facility] Body temperature 2020-09-14 09:00:00 36.28 [facility] Respiratory rate 2020-09-14 09:00:00 19 /min [facility] Oxygen saturation in 2020-09-14 09:00:00 96 /min [facility] Arterial blood by Medical Ce nter Pulse oximetry Body height 2020-09-12 14:23:00 172.7 cm [facility] Body weight 2020-09-12 14:23:00 119.2 kg [facility] BMI 2020-09-12 14:23:00 39.96 kg/m2 [facility] Procedures Procedure Date / Time Performing Clinician Source Performed BASIC METABOLIC PANEL 2020-09-14 06:04[facility] MAGNESIUM 2020-09-14 06:04:00 Edilberto [facility] PHOSPHORUS 2020-09-14 06:04:00 Edilberto [facility] CBC W/PLT COUNT & AUTO 2020-09-14 06:04:00 Edilberto [facility] ECG 12-LEAD 2020-09-13 17:12:17 JoiunAlex fraser [facility] 2D ECHO W/ DOPPLER 2020-09-13 12:56:[address] [facility] (CW/PW/COLOR) [facility] URINALYSIS W/ REFLEX 2020-09-13 12:46:00 Finesse [facility] URINE CULTURE [facility] PROCALCITONIN 2020-09-13 12:13:00 Edilberto [facility] C-REACTIVE PROTEIN 2020-09-13 12:13:00 Edilberto [facility] VANCOMYCIN LEVEL, RANDOM 2020-09-13 10:36:00 Vira Concepcion [facility] TROPONIN I 2020-09-13 10:36:00 Finesse [facility] BASIC METABOLIC PANEL 2020-09-13 06:43:00 Sharita Casanova [facility] (7) [facility] MAGNESIUM 2020-09-13 06:43:00 Edilberto [facility] PHOSPHORUS 2020-09-13 06:43:00 Sharita Casanova [facility] CREATINE KINASE (CK) 2020-09-13 06:43:00 Sharita Casanova [facility] HEMOGLOBIN A1C 2020-09-13 05:06:00 Finesse [facility] TROPONIN I 2020-09-13 05:06:00 Finesse [facility] CBC W/PLT COUNT & AUTO 2020-09-13 05:06:00 Balpietro-Jacky, Ped ro [facility] BASIC METABOLIC PANEL 2020-09-12 22:16:00 Finesse [facility] (7) [facility] MAGNESIUM 2020-09-12 22:16:00 Finesse [facility] PHOSPHORUS 2020-09-12 22:16:00 Finesse [facility] TROPONIN I 2020-09-12 22:16:00 Finesse [facility] CALCIUM, IONIZED 2020-09-12 22:16:00 Finesse [facility] BLOOD CULTURE 2020-09-12 22:15:00 Poornima Casanova [facility] Ce nter MR BRAIN WITHOUT IV 2020-09-12 18:11:00 Sangita Catalan [facility] SARS-COV2/RT-PCR ([facility] & 2020-09-12 15:08:00 Sharita Casanova [facility] - REF LABS) [facility] RESPIRATORY PANEL [facility] 2020-09-12 15:08:00 Sangita Catalan [facility] RAPID INFLUENZA A&B 2020-09-12 15:08:[address] [facility] XR CHEST 1 VIEW 2020-09-12 04:55:[address] [facility] PORTABLE/BEDSIDE Medical [place] VANCOMYCIN LEVEL, RANDOM 2020-09-12 03:24:00 Finesse [facility] PROCALCITONIN 2020-09-12 03:24:00 [facility] T4 IF INDICATED 2020-09-12 03:24:00 Finesse [facility] VITAMIN B12 AND FOLATE 2020-09-12 03:24:00 Diandra Kil[facility] RPR 2020-09-12 03:24:00 Finesse [facility] HEPATIC FUNCTION PANEL 2020-09-12 03:24:00 Diandra Kilpatrick [facility] PROTHROMBIN TIME/INR 2020-09-12 03:24:00 Finesse [facility] LACTIC ACID, VENOUS 2020-09-12 01:33:00 Poornima Casanova [facility] Medical nter BLOOD CULTURE 2020-09-12 01:25:00 [facility] MAGNESIUM 2020-09-12 01:25:00 [facility] 2020-09-12 01:25:00 [facility] LIPID PANEL 2020-09-12 01:25:00 [facility] COMPREHENSIVE METABOLIC 2020-09-12 01:25:00 [facility] W/[facility]T [facility] & AUTO 2020-09-12 01:25:00 [facility] Plan of Care Planned Activity Planned Date Details Comments Source Future Scheduled 2020-09-11 Medicare IPPE (WELCOME [facility] 00:[facility]00 TO MEDICARE) [code = Medical Center Medicare IPPE (WELCOME TO MEDICARE)] Future Scheduled 2020-06-29 INFLUENZA VACCINE (#1) [facility] - Test 00:00:00 [code = INFLUENZA Medical Ce nter VACCINE (#1)] Future Scheduled 1997 PNEUMOCOCCAL 65+ YRS [facility] - Test 00:00:00 (1 of 1 - Medical Center [id number] PCV13) [code = PNEUMOCOCCAL 65+ YRS (1 of 1 - [id number] PCV13)] Results Test Description Test Time Test Comments Results Result Comments Source Basic Metabolic Panel 2020-09-14 07:10:00 Test Item Value Reference Range Interpretation Comme nts Sodium (test code = 136 meq/L 163-482 3313-2) Potassium (test code = 4.2 meq/L 3.5-5.1 2823-3) Chloride (test code = 103 meq/L 98-107 2075-0) CO2 (test code = 8-9) 26 meq/L 22-29 BUN (test code = 3094-0) 26 mg/dL 7-21 H Creatinine (test code = 1.32 mg/dL 0.57-1.25 H 2160-0) Glucose (test code = 125 mg/dL 70-105 H 2345-7) Calcium (test code = 9.4 mg/dL 8.4-10.2 65040-6) EGFR (test code = 98074-0) 51 mL/min/1.73 sq m ESTIMATED GFR IS NOT ACCURATE CREATININE MANAN TONIE IN PREDICTING GLOMERULAR FILT RATION RATE. ESTIMATED GFR IS NOT APPLICAB LE FOR DIALYSIS PATIEN TS. JONI (test code = JONI) Flight Surveyor ID - EDASI Lab Interpretation (test Abnormal code = 70166-2) [facility]esium2020-[facility] 07:10:00 Test Item Value Reference Range Interpretation Comments Magnesium (test code = 1.9 mg/dL 1.6-2.6 79883-4) JONI (test code = JONI) Flight Surveyor ID - EDASI Lab Interpretation (test Normal code = 43880-0) [facility] Center[facility]osphorus2020-[facility]-17 07:10:00 Test Item Value Reference Range Interpretation Comments Phosphorus (test code = 2.9 mg/dL 2.3-4.7 2777-1) JONI (test code = JONI) Flight Surveyor ID - EDASI Lab Interpretation (test Normal code = 75346-3) [facility] CenterBASIC METABOLIC [id number] 07:10:00 Test Item Value Reference Range Interpretation Comments SODIUM (BEAKER) 136 meq/L 136-145 (test code = 381) POTASSIUM (BEAKER) 4.2 meq/L 3.5-5.1 (test code = 379) CHLORIDE (BEAKER) 103 meq/L 98-107 (test code = 382) CO2 (BEAKER) (test 26 meq/L 22-29 code = 355) BLOOD UREA NITROGEN 26 mg/dL 7-21 H (BEAKER) (test code = 354) CREATININE (BEAKER) 1.32 mg/dL 0.57-1.25 H (test code = 358) GLUCOSE RANDOM 125 mg/dL 70-105 H (BEAKER) (test code = 652) CALCIUM (BEAKER) 9.4 mg/dL 8.4-10.2 (test code = 697) EGFR (BEAKER) (test 51 mL/min/1.73 ESTIMA MIRACLE GFR IS code = 1092) sq m NOT ACCURATE CREATININE CLEARANCE IN PREDICTING GLOMERULAR FILTRATION RATE . ESTIMATED GFR I S NOT APPLICABLE FOR DIALYSIS PATIEN TS. Flight Surveyor ID - [id number] 07:10:00 Test Item Value Reference Range Interpretation Comments MAGNESIUM (BEAKER) (test code = 1.9 mg/dL 1.6-2.6 627) Flight Surveyor ID - [id number] 07:10:00 Test Item Value Reference Range Interpretation Comments PHOSPHORUS (BEAKER) (test code = 2.9 mg/dL 2.3-4.7 604) Flight Surveyor ID - EDASIECG 12 [id number] 06:30:29Interface, External Ris In - 09/14/2020 6:30 AM CSTVentricular Rate 72 BPMAtrial Rate 72 BPMP-R Interval 244 msQRS Duration 100 msQ-T Interval 386 msQTC Calculation(Bazett) 422 msP [place] 80 degreesR [place] -35 degreesT [place] 54 degreesSinus rhythm with 1st degree A-V block with Premature supraventricularcomplexesLeft axis deviationAnterior infarct , age undeterminedAbnormal ECGNo previous ECGs availableConfirmed by MD BRIAN, DANY Anaya ([id number]) on 09/14/2020 6:30:28 [facility] + automated [id number] 06:14:00 Test Item Value Reference Range Interpretation Comments WBC (test code = 6690-2) 7.4 3.5- 10.5 K/L RBC (test code = 789-8) 3.98 4.63- 6.08 M/L L MCHC (test code = 786-4) 32.4 32.3- 36.5 GM/DL L Hematocrit (test code = 4544-3) 38.0 % 40.1-51 L MCV (test code = 787-2) 95.5 fL 79-92.2 H MCH (test code = 785-6) 30.9 pg 25.7-32.2 RDW (test code = 788-0) 13.0 % 11.6-14.4 Platelets (test code = 777-3) 186 150- 450 K/CU MM MPV (test code = 92703-6) 10.4 fL 9.4-12.4 nRBC (test code = 413) 0 0- 0 /100 WBC % Neutros (test code = 429) 64 % % Lymphs (test code = 430) 23 % % Monos (test code = 431) 11 % % Eos (test code = 432) 2 % % Baso (test code = 437) 0 % # Neutros (test code = 670) 4.74 1.78- 5.38 K/L # Lymphs (test code = 414) 1.68 1.32- 3.57 K/L # Monos (test code = 415) 0.79 0.30- 0.82 K/L # Eos (test code = 416) 0.14 0.04- 0.54 K/L # Baso (test code = 417) 0.01 0.01- 0.08 K/L Immature Granulocytes-Relative 1 % 0-1 (test code = 2801) Lab Interpretation (test code = Abnormal 99919-1) [facility] W/PLT COUNT & AUTO [id number] 06:14:00 Test Item Value Reference Range Interpretation Comments WHITE BLOOD CELL COUNT (BEAKER) 7.4 K/ L 3.5-10.5 (test code = 775) RED BLOOD CELL COUNT (BEAKER) 3.98 M/ L 4.63-6.08 L (test code = 761) HEMOGLOBIN (BEAKER) (test code = 12.3 GM/DL 13.7-17.5 L 410) HEMATOCRIT (BEAKER) (test code = 38.0 % 40.1-51.0 L 411) MEAN CORPUSCULAR VOLUME (BEAKER) 95.5 fL 79.0-92.2 H (test code = 753) MEAN CORPUSCULAR HEMOGLOBIN 30.9 pg 25.7-32.2 (BEAKER) (test code = 751) MEAN CORPUSCULAR HEMOGLOBIN CONC 32.4 GM/DL 32.3-36.5 (BEAKER) (test code = 752) RED CELL DISTRIBUTION WIDTH 13.0 % 11.6-14.4 (BEAKER) (test code = 412) PLATELET COUNT (BEAKER) (test 186 K/CU MM 150-450 code = 756) MEAN PLATELET VOLUME (BEAKER) 10.4 fL 9.4-12.4 (test code = 754) NUCLEATED RED BLOOD CELLS 0 /100 WBC 0-0 (BEAKER) (test code = 413) NEUTROPHILS RELATIVE PERCENT 64 % (BEAKER) (test code = 429) LYMPHOCYTES RELATIVE PERCENT 23 % (BEAKER) (test code = 430) MONOCYTES RELATIVE PERCENT 11 % (BEAKER) (test code = 431) EOSINOPHILS RELATIVE PERCENT 2 % (BEAKER) (test code = 432) BASOPHILS RELATIVE PERCENT 0 % (BEAKER) (test code = 437) NEUTROPHILS ABSOLUTE COUNT 4.74 K/ L 1.78-5.38 (BEAKER) (test code = 670) LYMPHOCYTES ABSOLUTE COUNT 1.68 K/ L 1.32-3.57 (BEAKER) (test code = 414) MONOCYTES ABSOLUTE COUNT (BEAKER) 0.79 K/ L 0.30-0.82 (test code = 415) EOSINOPHILS ABSOLUTE COUNT 0.14 K/ L 0.04-0.54 (BEAKER) (test code = 416) BASOPHILS ABSOLUTE COUNT (BEAKER) 0.01 K/ L 0.01-0.08 (test code = 417) IMMATURE GRANULOCYTES-RELATIVE 1 % 0-1 PERCENT (BEAKER) (test code = 2801) 2D Echo W/Doppler(CW/PW/Color)2020-09-13 15:28:25Ejection FractionSLEH ECHO HEARTLAB MKCKESSON CPACSInterface, External Ris In - 09/13/2020 3:28 PM C STTransthoracic Echocardiography Report (TTE) Demographics Patient Name WOIZESGABRIELLA, Date of Study 09/13/2020 MARLA Gender Male VisitNumber [id number] Race Unknown Room [id number] Number Date of 1930 Referring TEE Anaya Physician AYANNA Age 89 year(s) 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 No apparent segmental wall motion abnormalities. Global LV systolic function normal . Estimated LVEF by qualitative assessment is normal (55- 60%) . Left Atrium LA size is normal . Right Ventricle Normal right ventricle structure and function. Right Atrium Normal right atrium. Atrial Septum IV saline contrast injection was negative for a PFO (patent foramen ovale) at rest and post Megan esequiel . Aortic Valve Mild AoV cusp thickening. [...] is normal . Pericardium No evidence of pericardial effusion. [...] cm LV Length: 8.63 cm LVEDV Pickard's:117.41 mlLV FS: 11.3 % LVESV Pickard's:46.34 ml LVEF [...] TR Velocity: 2.43 m/s TR Gradient: 23.63 mmHgWest [facility] Medical CenterRPR2020-11-16 14:45:00 Test Item Value Reference Range Interpretation Comments RPR (test code = 98033-8) Nonreactive Nonreactive Lab Interpretation (test code = Normal 36925-1) [facility] CenterRPR2020-11-16 14:45:00 Test Item Value Reference Range Interpretation Comments RPR SCREEN (BEAKER) (test code = Nonreactive Nonreactive 420) Urinalysis w/Microscopic + Reflex to [id number] 13:32:00 Test Item Value Reference Range Interpretation Comments Color, UA (test code = Yellow 5778-6) Clarity, UA (test code = Hazy 5767-9) Specific Ellinger, UA (test 1.036 1.001-1.035 H code = 5811-5) pH, UA (test code = 5.5 5.0-8.0 5803-2) Protein, UA (test code = 100 mg/dL Negative A 67317-6) Glucose, UA (test code = Negative Negative 365) Ketones, UA (test code = Negative Negative 2514-8) Bilirubin, UA (test code = Negative Negative 39361-6) Blood, UA (test code = Large Negative A 06445-5) Nitrite, UA (test code = Negative Negative 5802-4) Leukocytes, UA (test code Negative Negative = 5799-2) Urobilinogen, UA (test 0.2 mg/dL 0.2-1 code = 08218-0) RBC, UA (test code = 2 /HPF 89196-0) WBC, UA (test code = 4 /HPF 5821-4) Mucus (test code = 8247-9) Few Squam Epithel, UA (test <1 /HPF code = 27623-4) Hyaline Casts, UA (test 4 /LPF code = 30808-2) Specimen Source (test code = 2795) JONI (test code = JONI) Flight Surveyor ID - [auto]Flight Surveyor ID - tech Lab Interpretation (test Abnormal code = 25759-9) [facility] CenterURINALYSIS W/ REFLEX URINE [id number] 13:32:00 Test Item Value Reference Range Interpretation Comments COLOR (BEAKER) (test code = 470) Yellow CLARITY (BEAKER) (test code = 469) Hazy SPECIFIC GRAVITY UA (BEAKER) (test 1.036 1.001-1.035 H code = 468) PH UA (BEAKER) (test code = 467) 5.5 5.0-8.0 PROTEIN UA (BEAKER) (test code = 100 mg/dL Negative A 464) GLUCOSE UA (BEAKER) (test code = Negative Negative 365) KETONES UA (BEAKER) (test code = Negative Negative 371) BILIRUBIN UA (BEAKER) (test code = Negative Negative 462) BLOOD UA (BEAKER) (test code = 461) Large Negative A NITRITE UA (BEAKER) (test code = Negative Negative 465) LEUKOCYTE ESTERASE UA (BEAKER) Negative Negative (test code = 466) UROBILINOGEN UA (BEAKER) (test code 0.2 mg/dL 0.2-1.0 = 463) RBC UA (BEAKER) (test code = 519) 2 /HPF WBC UA (BEAKER) (test code = 520) 4 /HPF MUCUS (BEAKER) (test code = 1574) Few SQUAMOUS EPITHELIAL (BEAKER) (test < /HPF code = 516) HYALINE CASTS (BEAKER) (test code = 4 /LPF 514) SOURCE(BEAKER) (test code = 2795) Flight Surveyor ID - [auto]Flight Surveyor ID - techC-Reactive [id number] 13:21:00 Test Item Value Reference Range Interpretation Comments CRP (test code = 676) 14.49 mg/dL 0-0.5 H JONI (test code = JONI) Flight Surveyor ID - EDASI Lab Interpretation (test Abnormal code = 29961-2) [facility] CenterC-REACTIVE [id number] 13:21:00 Test Item Value Reference Range Interpretation Comments C-REACTIVE PROTEIN (BEAKER) (test 14.49 mg/dL 0.00-0.50 H code = 676) Flight Surveyor ID - [id number] 13:03:00 Test Item Value Reference Range Interpretation Comments Procalcitonin (test code = 2.15 ng/mL <0.05 H 63252-9) JONI (test code = JONI) SEPSIS RISK (ng/mL)Low: 0.05-0.50Intermedi ate: 0.51-2.00High: >=2.01 Lab Interpretation (test Abnormal code = 41786-8) [facility] CenterPROCALCITONIN2020-11-16 13:03:00 Test Item Value Reference Range Interpretation Comments PROCALCITONIN (BEAKER) (test code 2.15 ng/mL <0.05 H = 3036) SEPSIS RISK (ng/mL)Low: 0.05-0.50Intermediate: 0.51-2.00High: >=2.01Creatine Kinase (CK)2020-09-13 11:55:00 Test Item Value Reference Range Interpretation Comments Total CK (test code = 5809 U/L 29-200 H 2157-6) JONI (test code = JONI) Flight Surveyor ID - EDASIOperator ID - EDASI Lab Interpretation Abnormal (test code = 07304-5) [facility] CenterCREATINE KINASE (CK)2020-09-13 11:55:00 Test Item Value Reference Range Interpretation Comments CREATINE KINASE TOTAL (BEAKER) (test 5809 U/L 29-200 H code = 380) Flight Surveyor ID - EDASIOperator ID - EDASIVancomycin level, [id number] 11:22:00 Test Item Value Reference Range Interpretation Comments Vancomycin Rm (test 4.0 ug/mL code = 28034-7) JONI (test code = Reference Range: No JONI) NormalsOperator ID - EDASI [facility] CenterVANCOMYCIN LEVEL, [id number] 11:22:00 Test Item Value Reference Range Interpretation Comments VANCOMYCIN RANDOM (BEAKER) (test 4.0 ug/mL code = 523) Reference Range: No NormalsOperator ID - EDASITroponin [id number] 11:11:00 Test Item Value Reference Range Interpretation Comments Troponin I (test code = 0.05 ng/mL 0-0.03 H 30116-3) JONI (test code = JONI) Troponin I (TnI) levels must be interpreted in the context of the presenting symptoms and the clinical findings. Elevated TnI levels indicate myocardial damage, but are not specific for ischemic heart disease. Elevated TnI levels are seen in patients with other cardiac conditions (including myocarditis and congestive heart failure), and slight TnI elevations occur in patients with other conditions, including sepsis, renal failure, acidosis, acute neurological disease, and persistent tachyarrhythmia.Opera tor ID - EDASI Lab Interpretation (test Abnormal code = 38860-1) [facility] CenterTROPONIN [id number] 11:11:00 Test Item Value Reference Range Interpretation Comments TROPONIN I (BEAKER) (test code = 0.05 ng/mL 0.00-0.03 H 397) Troponin I (TnI) levels must be interpreted in the context of the presenting symptoms and the clinical findings. Elevated TnI levels indicate myocardial damage, but are not specific for ischemic heart disease. Elevated TnI levels are seen in patients with other cardiac conditions (including myocarditis and congestive heart failure), and slight TnI elevations occur in patients with other conditions, including sepsis, renal failure, acidosis, acute neurological disease, and persistent tachyarrhythmia.Flight Surveyor ID - EDASIHemoglobin A1c 2020-09-13 08:03:00 Test Item Value Reference Range Interpretation Comments Hemoglobin A1C (test code = 4548-4) 5.5 % 4.3-6.1 Lab Interpretation (test code = Normal 59556-6) [facility] CenterHEMOGLOBIN [id number] 08:03:00 Test Item Value Reference Range Interpretation Comments HEMOGLOBIN A1C (BEAKER) (test code = 5.5 % 4.3-6.1 368) BASIC METABOLIC [id number] 07:30:00 Test Item Value Reference Range Interpretation Comments SODIUM (BEAKER) 134 meq/L 136-145 L (test code = 381) POTASSIUM (BEAKER) 4.4 meq/L 3.5-5.1 (test code = 379) CHLORIDE (BEAKER) 103 meq/L 98-107 (test code = 382) CO2 (BEAKER) (test 25 meq/L 22-29 code = 355) BLOOD UREA NITROGEN 21 mg/dL 7-21 (BEAKER) (test code = 354) CREATININE (BEAKER) 1.17 mg/dL 0.57-1.25 (test code = 358) GLUCOSE RANDOM 115 mg/dL 70-105 H (BEAKER) (test code = 652) CALCIUM (BEAKER) 8.5 mg/dL 8.4-10.2 (test code = 697) EGFR (BEAKER) (test 59 mL/min/1.73 ESTIMA MIRACLE GFR IS code = 1092) sq m NOT ACCURATE CREATININE CLEARANCE IN PREDICTING GLOMERULAR FILTRATION RATE . ESTIMATED GFR I S NOT APPLICABLE FOR DIALYSIS PATIEN TS. Flight Surveyor ID - [id number] 07:30:00 Test Item Value Reference Range Interpretation Comments MAGNESIUM (BEAKER) (test code = 2.2 mg/dL 1.6-2.6 627) Flight Surveyor ID - [id number] 07:30:00 Test Item Value Reference Range Interpretation Comments PHOSPHORUS (BEAKER) (test code = 2.2 mg/dL 2.3-4.7 L 604) Flight Surveyor ID - EDASITROPONIN [id number] 05:50:00 Test Item Value Reference Range Interpretation Comments TROPONIN I (BEAKER) (test code = 0.05 ng/mL 0.00-0.03 H 397) Troponin I (TnI) levels must be interpreted in the context of the presenting symptoms and the clinical findings. Elevated TnI levels indicate myocardial damage, but are not specific for ischemic heart disease. Elevated TnI levels are seen in patients with other cardiac conditions (including myocarditis and congestive heart failure), and slight TnI elevations occur in patients with other conditions, including sepsis, renal failure, acidosis, acute neurological disease, and persistent tachyarrhythmia.Flight Surveyor ID - EDASICBC W/PLT COUNT & AUTO [id number] 05:28:00 Test Item Value Reference Range Interpretation Comments WHITE BLOOD CELL COUNT (BEAKER) 7.1 K/ L 3.5-10.5 (test code = 775) RED BLOOD CELL COUNT (BEAKER) 3.84 M/ L 4.63-6.08 L (test code = 761) HEMOGLOBIN (BEAKER) (test code = 11.8 GM/DL 13.7-17.5 L 410) HEMATOCRIT (BEAKER) (test code = 37.1 % 40.1-51.0 L 411) MEAN CORPUSCULAR VOLUME (BEAKER) 96.6 fL 79.0-92.2 H (test code = 753) MEAN CORPUSCULAR HEMOGLOBIN 30.7 pg 25.7-32.2 (BEAKER) (test code = 751) MEAN CORPUSCULAR HEMOGLOBIN CONC 31.8 GM/DL 32.3-36.5 L (BEAKER) (test code = 752) RED CELL DISTRIBUTION WIDTH 13.2 % 11.6-14.4 (BEAKER) (test code = 412) PLATELET COUNT (BEAKER) (test 128 K/CU MM 150-450 L code = 756) MEAN PLATELET VOLUME (BEAKER) 10.4 fL 9.4-12.4 (test code = 754) NUCLEATED RED BLOOD CELLS 0 /100 WBC 0-0 (BEAKER) (test code = 413) NEUTROPHILS RELATIVE PERCENT 71 % (BEAKER) (test code = 429) LYMPHOCYTES RELATIVE PERCENT 15 % (BEAKER) (test code = 430) MONOCYTES RELATIVE PERCENT 11 % (BEAKER) (test code = 431) EOSINOPHILS RELATIVE PERCENT 2 % (BEAKER) (test code = 432) BASOPHILS RELATIVE PERCENT 0 % (BEAKER) (test code = 437) NEUTROPHILS ABSOLUTE COUNT 5.07 K/ L 1.78-5.38 (BEAKER) (test code = 670) LYMPHOCYTES ABSOLUTE COUNT 1.07 K/ L 1.32-3.57 L (BEAKER) (test code = 414) MONOCYTES ABSOLUTE COUNT (BEAKER) 0.79 K/ L 0.30-0.82 (test code = 415) EOSINOPHILS ABSOLUTE COUNT 0.14 K/ L 0.04-0.54 (BEAKER) (test code = 416) BASOPHILS ABSOLUTE COUNT (BEAKER) 0.03 K/ L 0.01-0.08 (test code = 417) IMMATURE GRANULOCYTES-RELATIVE 0 % 0-1 PERCENT (BEAKER) (test code = 2801) TROPONIN [id number] 23:01:00 Test Item Value Reference Range Interpretation Comments TROPONIN I (BEAKER) (test code = 0.06 ng/mL 0.00-0.03 H 397) Troponin I (TnI) levels must be interpreted in the context of the presenting symptoms and the clinical findings. Elevated TnI levels indicate myocardial damage, but are not specific for ischemic heart disease. Elevated TnI levels are seen in patients with other cardiac conditions (including myocarditis and congestive heart failure), and slight TnI elevations occur in patients with other conditions, including sepsis, renal failure, acidosis, acute neurological disease, and persistent tachyarrhythmia.Flight Surveyor ID - EDASIBASIC METABOLIC PANEL 2020-09-12 22:54:00 Test Item Value Reference Range Interpretation Comments SODIUM (BEAKER) 133 meq/L 136-145 L (test code = 381) POTASSIUM (BEAKER) 3.8 meq/L 3.5-5.1 (test code = 379) CHLORIDE (BEAKER) 103 meq/L 98-107 (test code = 382) CO2 (BEAKER) (test 24 meq/L 22-29 code = 355) BLOOD UREA NITROGEN 24 mg/dL 7-21 H (BEAKER) (test code = 354) CREATININE (BEAKER) 1.14 mg/dL 0.57-1.25 (test code = 358) GLUCOSE RANDOM 123 mg/dL 70-105 H (BEAKER) (test code = 652) CALCIUM (BEAKER) 8.3 mg/dL 8.4-10.2 L (test code = 697) EGFR (BEAKER) (test 61 mL/min/1.73 ESTIMA MIRACLE GFR IS code = 1092) sq m NOT ACCURATE CREATININE CLEARANCE IN PREDICTING GLOMERULAR FILTRATION RATE . ESTIMATED GFR I S NOT APPLICABLE FOR DIALYSIS PATIEN TS. Flight Surveyor ID - [id number] 22:54:00 Test Item Value Reference Range Interpretation Comments MAGNESIUM (BEAKER) (test code = 1.8 mg/dL 1.6-2.6 627) Flight Surveyor ID - [id number] 22:54:00 Test Item Value Reference Range Interpretation Comments PHOSPHORUS (BEAKER) (test code = 2.4 mg/dL 2.3-4.7 604) Flight Surveyor ID - EDASIMR, BRAIN, WITHOUT [id number] 22:50:00Unlisted Reason for Exam - Click Yes and Enter Reason Below->No [facility] 1930 Sex: MFINAL REPORT Exam: MRI brain without contrast. Comparison: None. Clinical indication: Stroke, follow up Technique: Multiplanar multi sequential MR imaging of the brain was performed without the administration of intravenous contrast. Findings:There is generalized parenchymal atrophy.There are mild white matter microvascular ischemic changesThere is no intracranial mass, mass effect, extra-axial collection, hydrocephalus or herniation. There is no restricted diffusionto suggest an acute infarct. There is no abnormality on susceptibility sequences to suggest hemorrhage or hemosiderin deposition. The skull base flow-voids are seen in keeping with their patency. There is mild bilateral ethmoid sinus mucosal thickening. The mastoid air cells are clear. There are bilateral lens replacements. The sella and parasellar regions are unremarkable. The craniocervical junction is normal. Impression:Mild white matter microvascular ischemic changes.No acute infarct, hemorrhage or mass effect. Signed: Angel Caceres [facility] Verified Date/Time: 09/12/2020 22:50:10 MR brain without IV [id number] 22:50:00Interface, External Ris In - 09/12/2020 10:52 PM CSTFINAL REPORT Exam: MRI brain without contrast. Comparison: None. Clinical indication: Stroke, follow up Technique: Multiplanar multi sequential MR imaging of the brain was performed without the administration of intravenous contrast. Findings:There is generalized parenchymal atrophy.There are mild white matter microvascular i schemic changesThere is no intracranial mass, mass effect, extra-axial collection, hydrocephalus or herniation. There is no restricted diffusion to suggest an acute infarct. There is no abnormality onsusceptibility sequences to suggest hemorrhage or hemosiderin deposition. The skull base flow-voids are seen in keeping with their patency. There is mild bilateral ethmoid sinus mucosal thickening. The mastoid air cells are clear. There are bilateral lens replacements. The sella and parasellar regions are unremarkable. The craniocervical junction is normal. Impression:Mild white matter microvascular ischemic changes.No acute infarct, hemorrhage or mass effect. Signed: Angel Caceres MDReport Verified Date/Time: 09/12/2020 22:50:10 [facility] [id number] 22:35:00 Test Item Value Reference Range Interpretation Comments Calcium, Ion (test code = 1994-3) 1.13 mmol/L 1.12-1.27 pH, Blood (test code = 86474-3) 7.44 [facility] CenterCALCIUM, [id number] 22:35:00 Test Item Value Reference Range Interpretation Comments CALCIUM IONIZED (BEAKER) (test 1.13 mmol/L 1.12-1.27 code = 698) PH, BLOOD (BEAKER) (test code = 7.44 1810) Respiratory Panel [id number] 18:24:00 Test Item Value Reference Range Interpretation Comments Human Metapneumovirus Not detected Not detected, (test code = 99680-8) Equivocal Rhinovirus (test code = Not detected Not detected, 78658-7) Equivocal INFLUENZA A (NO Not detected Not detected, SUBTYPE) (test code = Equivocal 48539-8) Influenza A subtype H1 (test code = 51155-3) Influenza A Subtype H3 (test code = 49331-1) Influenza A Subtype H1-2009 (test code = 68587-4) Influenza B (test code Not detected Not detected, = 54890-1) Equivocal Respiratory Syncytial Not detected Not detected, Virus (test code = Equivocal 29476-6) Parainfluenza Virus 1 Not detected Not detected, (test code = 95186-0) Equivocal Parainfluenza Virus 2 Not detected Not detected, (test code = 60888-9) Equivocal Parainfluenza virus 3 Not detected Not detected, (test code = 52377-6) Equivocal Parainfluenza Virus 4 Not detected Not detected, (test code = 60983-3) Equivocal Adenovirus (test code = Not detected Not detected, 56621-3) Equivocal Coronavirus 229E (test Not detected Not detected, code = 02983-1) Equivocal Coronavirus HKU1 (test Not detected Not detected, code = 01470-1) Equivocal Coronavirus NL63 (test Not detected Not detected, code = 72333-3) Equivocal Coronavirus OC43 (test Not detected Not detected, code = 87110-8) Equivocal Bordetella Pertussis Not detected Not detected, (test code = 34349-0) Equivocal Chlamydophila Not detected Not detected, Pneumoniae (test code = Equivocal 73274-0) Mycoplasma Pneumoniae Not detected Not detected, (test code = 59087-7) Equivocal JONI (test code = JONI) Other viruses and bacteria not targeted by this PCR panel cannot be excluded; therefore clinical correlation and follow up of serology, culture results, and other molecular studies is required. The results are not intended to be used as the sole means for clinical diagnosis or patient management decisions. This sample was tested at the [facility] using the Clipabout Respiratory Panel. It is FDA cleared and has been verified and approved by the [facility] for clinical use on nasopharyngeal swab specimens. The performance of the FilmArray RP has not been established in individuals who received influenza vaccine. Recent administration of a nasal influenza vaccine may cause false positive results for Influenza A and/orInfluenza B. [facility] CenterRESPIRATORY PANEL [id number] 18:24:00 Test Item Value Reference Range Interpretation Comments HUMAN METAPNEUMOVIRUS Not detected Not detected, (BEAKER) (test code = 2683) Equivocal RHINOVIRUS (BEAKER) (test Not detected Not detected, code = 2684) Equivocal INFLUENZA A (BEAKER) (test Not detected Not detected, code = 2685) Equivocal INFLUENZA A (NO SUBTYPE) (test code = 3606) INFLUENZA A SUBTYPE H1 (BEAKER) (test code = 2686) INFLUENZA A SUBTYPE H3 (BEAKER) (test code = 2687) INFLUENZA A SUBTYPE H1-2009 (BEAKER) (test code = 3198) INFLUENZA B (BEAKER) (test Not detected Not detected, code = 2688) Equivocal RESPIRATORY SYNCYTIAL VIRUS Not detected Not detected, (BEAKER) (test code = 3199) Equivocal PARAINFLUENZA VIRUS 1 Not detected Not detected, (BEAKER) (test code = 2691) Equivocal PARAINFLUENZA VIRUS 2 Not detected Not detected, (BEAKER) (test code = 2692) Equivocal PARAINFLUENZA VIRUS 3 Not detected Not detected, (BEAKER) (test code = 2693) Equivocal PARAINFLUENZA VIRUS 4 Not detected Not detected, (BEAKER) (test code = 3200) Equivocal ADENOVIRUS (BEAKER) (test Not detected Not detected, code = 2694) Equivocal CORONAVIRUS 229E (BEAKER) Not detected Not detected, (test code = 3201) Equivocal CORONAVIRUS HKU1 (BEAKER) Not detected Not detected, (test code = 3202) Equivocal CORONAVIRUS NL63 (BEAKER) Not detected Not detected, (test code = 3203) Equivocal CORONAVIRUS OC43 (BEAKER) Not detected Not detected, (test code = 3204) Equivocal BORDETELLA PERTUSSIS Not detected Not detected, (BEAKER) (test code = 3205) Equivocal CHLAMYDOPHILA PNEUMONIAE Not detected Not detected, (BEAKER) (test code = 3206) Equivocal MYCOPLASMA PNEUMONIAE Not detected Not detected, (BEAKER) (test code = 3207) Equivocal Other viruses and bacteria not targeted by this PCR panel cannot be excluded; therefore clinical correlation and follow up of serology, culture results, and other molecular studies is required. The results are not intended to be used as the sole means for clinical diagnosis or patient management decisions. This sample was tested at the [facility] using the QuandooArray Respiratory Panel. It is FDA cleared and has been verified and approved by the [facility] for clinical use on nasopharyngeal swab specimens.The performance of the FilmArrayRP has not been established in individuals who received influenza vaccine. Recent administration ofa nasal influenza vaccine may cause false positive results for Influenza A and/orInfluenza B.SARS-CoV2/RT-PCR (Asymptomatic ONLY)2020-09-12 17:01:00 Test Item Value Reference Range Interpretation Comments SARS-COV2/RT-PCR Negative Not Detected, (test code = Negative, See 21367-2) external report for linked test SARS-COV-2 [facility] PERFORMING LAB (test code = 50409-3) JONI (test code = Negative results do not JONI) preclude SARS-CoV-2 infection and should not be used as [...] of the Act. Fact Sheet for Healthcare Providers:https://www.Pro[employer]/Documents/Xper t%20Xpress%20SARS%20CoV- 2/Fact%20Sheets/302-3802 %25PUWW-RYR-1%20HEALTHCA RE%20PROVIDERS%20FACT%20 SHEET.pdf Fact Sheet for Healthcare Patients:https://www.[employer]/Documents/Xpert %20Xpress%20SARS%20CoV-2 /Fact%20Sheets/3023801% 95ABXK-YTR-0%20PATIENT%2 0FACT%20SHEET.pdf Performing Laboratory:[place] [address] [address]ey[address]OV2/RT-PCR ([facility])2020-09-12 17:01:00 Test Item Value Reference Range Interpretation Comments SARS-COV2/RT-PCR (test code Negative Not Detected, Negative, = 4007417) See external report for linked test SARS-COV-2 PERFORMING LAB [facility] (test code = 8198676) Negative results do not preclude SARS-CoV-2 infection and should not be used as the sole basis for patient management decisions. Negative results must be combined with clinical observations, patient history, and epidemiological information. A false negative result may occur if a specimen is improperly collected, transported or handled.The limit of detection for this assay is 250 copies/mL.This SARS CoV-2 test is a rapid, real-time RT-PCR test intended for the qualitative detection of nucleic acid from SARS-CoV-2 in a nasopharyngeal swab specimen collected from individuals suspected of COVID-19 by their healthcare provider.This test has not been Food and Drug [...] is revoked under Section 564(g) of the Act.Fact Sheet for Healthcare Pro viders:https://www.Fathom[employer]/Documents/Xpert%20Xpress%20SARS%20CoV-2/Fact%20Sh eets/302-3802%39RQXA-RID-1%20HEALTHCARE%20PROVIDERS%20FACT%20SHEET.pdfFact Sheet for Healthcare Patients:https://www.[employer]/Documents/Xpert%20Xpress%20SARS%20CoV-2/Fact%20Sheets/302-3801%20SARS-COV -2%20PATIENT%20FACT%20SHEET.pdfPerforming Laboratory:[facility] [place] [address].[place], [place] [address] Influenza A&B [id number] 16:07:00 Test Item Value Reference Range Interpretation Comments Rapid Influenza A Antigen Negative Negative, Inconclusive (test code = 72411-2) Rapid influenza B Antigen Negative Negative, Inconclusive (test code = 03065-7) Lab Interpretation (test code Normal = 46127-9) [facility] CenterRAPID INFLUENZA A&B [id number] 16:07:00 Test Item Value Reference Range Interpretation Comments RAPID INFLUENZA A AG (BEAKER) Negative Negative, Inconclusive (test code = 1622) RAPID INFLUENZA B AG (BEAKER) Negative Negative, Inconclusive (test code = 1623) RAD, CHEST, 1 VIEW, NON [id number] 11:52:00Reason for exam:->FEVER of unknown originShould this be performed at the bedside?->Yes [facility] : 1930 Sex: MFINAL REPORT RAD, CHEST, 1 VIEW, NON DEPT CLINICAL INDICATION: FEVER of unknown origin TECHNIQUE: AP view of the chest COMPARISON: None FINDINGS: Lung volumes are low withbibasilar streaky atelectasis. No focal consolidation, pleural effusion, or pneumothorax. The right costophrenic angle is incompletely imaged. Cardiomediastinal silhouette, carolin, and pulmonary vasculature are within normal limits. No acute osseous abnormalities. IMPRESSION:Low lung volumes. No evidence of pneumonia or other acute cardiopulmonary abnormality. Signed: Hank Mar Verified Date/Time: 09/12/2020 11:52:04 XR chest 1 view portable / [id number] 11:52:00Interface, External Ris In - 09/12/2020 11:54 AM CSTFINAL REPORT RAD, CHEST, 1 VIEW, NON DEPT CLINICAL INDICATION: FEVER of unknown origin TECHNIQUE: AP view of the chest COMPARISON: None FINDINGS: Lung volumes are low with bibasilar streaky atelectasis. No focal consolidation, pleural effusion, or pneumothorax. The right costophrenic angle is incompletely imaged. Cardiomediastinal silhouette, carolin, and pulmonary vasculature are within normal limits. No acute osseous abnormalities. IMPRESSION:Low lung volumes. No evidence of pneumonia or other acute cardiopulmonary abnormality. Signed: Hank Mra Verified Date/Time: 09/12/2020 11:52:04 [facility] CenterPROCALCITONIN 2020-09-12 07:31:00 Test Item Value Reference Range Interpretation Comments PROCALCITONIN (BEAKER) (test code 4.04 ng/mL <0.05 H = 3036) SEPSIS RISK (ng/mL)Low: 0.05-0.50Intermediate: 0.51-2.00High: >=2.01Vitamin B12 and [id number] 07:08:00 Test Item Value Reference Range Interpretation Comments Vitamin B12 (test code 278 pg/mL 213-816 = 2132-9) Folate (test code = 26.60 ng/mL >=7.00 2284-8) JONI (test code = OJNI) Flight Surveyor ID - EDASIOperator ID - EDASI Lab Interpretation Normal (test code = 62737-7) [facility] CenterVITAMIN B12 AND [id number] 07:08:00 Test Item Value Reference Range Interpretation Comments VITAMIN B12 (BEAKER) (test code = 278 pg/mL 213-816 774) FOLATE (BEAKER) (test code = 362) 26.60 ng/mL >=7.00 Flight Surveyor ID - EDASIOperator ID - EDASITSH/Free T4 If [id number] 07:06:00 Test Item Value Reference Range Interpretation Comments TSH (test code = 0.555 0.350- 4.940 uIU/mL 90703-6) JONI (test code = JONI) Flight Surveyor ID - EDASI Lab Interpretation (test Normal code = 14631-1) [facility] CenterTSH/FREE T4 IF [id number] 07:06:00 Test Item Value Reference Range Interpretation Comments THYROID STIMULATING HORMONE 0.555 uIU/mL 0.350-4.940 (BEAKER) (test code = 772) Flight Surveyor ID - EDASIVANCOMYCIN LEVEL, [id number] 06:08:00 Test Item Value Reference Range Interpretation Comments VANCOMYCIN RANDOM (BEAKER) (test 5.3 ug/mL code = 523) Reference Range: No NormalsOperator ID - EDASIHepatic function [id number] 05:22:00 Test Item Value Reference Range Interpretation Comments Protein, Total (test code 6.4 6.0- 8.3 gm/dL = 2885-2) Albumin (test code = 3.6 g/dL 3.5-5 06307-7) Total Bilirubin (test code 0.6 mg/dL 0.2-1.2 = 1975-2) Bilirubin, Direct (test 0.4 mg/dL 0.1-0.5 code = 1968-7) Alkaline Phosphatase (test 44 U/L 40-150 code = 6768-6) AST (test code = 1920-8) 139 U/L 5-34 H ALT (test code = 1742-6) 33 U/L 6-55 JONI (test code = JONI) Flight Surveyor ID - EDASI Lab Interpretation (test Abnormal code = 24570-3) [facility] CenterHEPATIC FUNCTION [id number] 05:22:00 Test Item Value Reference Range Interpretation Comments TOTAL PROTEIN (BEAKER) (test code = 6.4 gm/dL 6.0-8.3 770) ALBUMIN (BEAKER) (test code = 1145) 3.6 g/dL 3.5-5.0 BILIRUBIN TOTAL (BEAKER) (test code 0.6 mg/dL 0.2-1.2 = 377) BILIRUBIN DIRECT (BEAKER) (test 0.4 mg/dL 0.1-0.5 code = 706) ALKALINE PHOSPHATASE (BEAKER) (test 44 U/L 40-150 code = 346) AST (SGOT) (BEAKER) (test code = 139 U/L 5-34 H 353) ALT (SGPT) (BEAKER) (test code = 33 U/L 6-55 347) Flight Surveyor ID - EDASIProthrombin time/[id number] 04:51:00 Test Item Value Reference Range Interpretation Comments Protime (test code = 15.6 11.9- 14.2 H 5902-2) seconds INR (test code = 1.28 <=5.90 6301-6) JONI (test code = JONI) Effective 03/26/2019: PT Reference Range ChangeNew: 11.9-14.2 Previous: 11.7-14.7 RECOMMENDED COUMADIN/WARFARIN INR THERAPY RANGESSTANDARD DOSE: 2.0-3.0 Includes: PROPHYLAXIS for venous thrombosis, systemic embolization; TREATMENT for venous thrombosis and/or pulmonary embolus.HIGH RISK: Target INR is 2.5-3.5 for patients wiht mechanical heart valves. Lab Interpretation Abnormal (test code = 64737-0) [facility] CenterPROTHROMBIN TIME/[id number] 04:51:00 Test Item Value Reference Range Interpretation Comments PROTIME (BEAKER) (test code = 15.6 seconds 11.9-14.2 H 759) INR (BEAKER) (test code = 370) 1.28 <=5.90 Effective 03/26/2019: PT Reference Range ChangeNew: 11.9-14.2 Previous: 11.7- 14.7RECOMMENDED COUMADIN/WARFARIN INR THERAPY RANGESSTANDARD DOSE: 2.0-3.0 Includes: PROPHYLAXIS for venous thrombosis, systemic embolization; TREATMENT for venous thrombosis and/or pulmonary embolus.HIGH RISK: Target INR is2.5-3.5 for patients wiht mechanical heart valves.Comprehensive metabolic panel 2020-09-12 02:17:00 Test Item Value Reference Range Interpretation Comments Protein, Total (test 6.4 6.0- 8.3 gm/dL code = 2885-2) Albumin (test code = 3.6 g/dL 3.5-5 43737-5) Alkaline Phosphatase 46 U/L 40-150 (test code = 6768-6) Total Bilirubin (test 0.7 mg/dL 0.2-1.2 code = 1974-2) Sodium (test code = 137 meq/L 749-798 7959-2) Potassium (test code = 3.9 meq/L 3.5-5.1 2823-3) Chloride (test code = 103 meq/L 98-107 5-0) CO2 (test code = 26 meq/L 22-29 2027-9) BUN (test code = 24 mg/dL 7-21 H 3094-0) Creatinine (test code 1.38 mg/dL 0.57-1.25 H = 2160-0) Glucose (test code = 136 mg/dL 70-105 H 2345-7) Calcium (test code = 8.8 mg/dL 8.4-10.2 56392-1) AST (test code = 122 U/L 5-34 H 1920-8) ALT (test code = 31 U/L 6-55 1742-6) EGFR (test code = 49 mL/min/1.73 [place] [address]-2) NOT ACCURATE CREATININE CLEARANCE IN PREDICTING GLOMERULAR FILTRATION RATE . ESTIMATED GFR I S NOT APPLICABLE FOR DIALYSIS PATIENTS. JONI (test code = JONI) Flight Surveyor AINSLEY WOLFE Lab Interpretation Abnormal (test code = 70566-7) [facility] CenterFasting lipid [id number] 02:17:00 Test Item Value Reference Range Interpretation Comments Triglycerides (test 54 mg/dL code = 2571-8) Cholesterol (test code 141 mg/dL = 2093-3) HDL (test code = 44 mg/dL 5-9) LDL Calculated (test 86 mg/dL code = 48035-8) JONI (test code = JONI) Triglyceride Reference Range: Low Risk <150 Borderline 150-199 High Risk 200-499 Very High Risk >=500 Cholesterol Reference Range: Low Risk <200 Borderline 200-239 High Risk >240 HDL Cholesterol Reference Range: Low Risk >=60 High Risk <40 LDL Cholesterol Reference Range: Optimal <100 Near Optimal 100-129 Borderline 130-159 High 160-189 Very High >=190 Flight Surveyor ID - KEAGANRENAY [facility] CenterCOMPREHENSIVE METABOLIC [id number] 02:17:00 Test Item Value Reference Range Interpretation Comments TOTAL PROTEIN 6.4 gm/dL 6.0-8.3 (BEAKER) (test code = 770) ALBUMIN (BEAKER) 3.6 g/dL 3.5-5.0 (test code = 1145) ALKALINE PHOSPHATASE 46 U/L 40-150 (BEAKER) (test code = 346) BILIRUBIN TOTAL 0.7 mg/dL 0.2-1.2 (BEAKER) (test code = 377) SODIUM (BEAKER) (test 137 meq/L 136-145 code = 381) POTASSIUM (BEAKER) 3.9 meq/L 3.5-5.1 (test code = 379) CHLORIDE (BEAKER) 103 meq/L 98-107 (test code = 382) CO2 (BEAKER) (test 26 meq/L 22-29 code = 355) BLOOD UREA NITROGEN 24 mg/dL 7-21 H (BEAKER) (test code = 354) CREATININE (BEAKER) 1.38 mg/dL 0.57-1.25 H (test code = 358) GLUCOSE RANDOM 136 mg/dL 70-105 H (BEAKER) (test code = 652) CALCIUM (BEAKER) 8.8 mg/dL 8.4-10.2 (test code = 697) AST (SGOT) (BEAKER) 122 U/L 5-34 H (test code = 353) ALT (SGPT) (BEAKER) 31 U/L 6-55 (test code = 347) EGFR (BEAKER) (test 49 mL/min/1.73 ESTIMA MIRACLE GFR IS code = 1092) sq m NOT ACCURATE CREATININE CLEARANCE IN PREDICTING GLOMERULAR FILTRATION RATE . ESTIMATED GFR I S NOT APPLICABLE FOR DIALYSIS PATIEN TS. Flight Surveyor ID - [id number] 02:17:00 Test Item Value Reference Range Interpretation Comments MAGNESIUM (BEAKER) (test code = 1.7 mg/dL 1.6-2.6 627) Flight Surveyor ID - [id number] 02:17:00 Test Item Value Reference Range Interpretation Comments PHOSPHORUS (BEAKER) (test code = 4.1 mg/dL 2.3-4.7 604) Flight Surveyor ID - EDASILIPID [id number] 02:17:00 Test Item Value Reference Range Interpretation Comments TRIGLYCERIDES (BEAKER) (test code = 54 mg/dL 540) CHOLESTEROL (BEAKER) (test code = 141 mg/dL 631) HDL CHOLESTEROL (BEAKER) (test code 44 mg/dL = 976) LDL CHOLESTEROL CALCULATED (BEAKER) 86 mg/dL (test code = 633) Triglyceride Reference Range: Low Risk <150 Borderline 150-199 High Risk 200-499 Very High Risk >=500Cholesterol Reference Range: Low Risk <200 Borderline 200-239 High Risk >240HDL Cholesterol Reference Range: Low Risk >=60 High Risk <40LDL Cholesterol Reference Range: Optimal <100 Near Optimal 100-129 Borderline 130-159 High 160-189 Very High >=190 Flight Surveyor ID - EDASILactic acid, [id number] 02:03:00 Test Item Value Reference Range Interpretation Comments Lactate, Venous (test code 1.01 mmol/L 0.5-2.2 = 2872) JONI (test code = JONI) Flight Surveyor ID - EDASI Lab Interpretation (test Normal code = 48631-0) [facility] CenterLACTIC ACID, [id number] 02:03:00 Test Item Value Reference Range Interpretation Comments LACTATE BLOOD VENOUS (2) (BEAKER) 1.01 mmol/L 0.50-2.20 (test code = 2872) Flight Surveyor ID - EDASICBC W/PLT COUNT & AUTO [id number] 01:50:00 Test Item Value Reference Range Interpretation Comments WHITE BLOOD CELL COUNT (BEAKER) 12.8 K/ L 3.5-10.5 H (test code = 775) RED BLOOD CELL COUNT (BEAKER) 3.82 M/ L 4.63-6.08 L (test code = 761) HEMOGLOBIN (BEAKER) (test code = 11.8 GM/DL 13.7-17.5 L 410) HEMATOCRIT (BEAKER) (test code = 36.3 % 40.1-51.0 L 411) MEAN CORPUSCULAR VOLUME (BEAKER) 95.0 fL 79.0-92.2 H (test code = 753) MEAN CORPUSCULAR HEMOGLOBIN 30.9 pg 25.7-32.2 (BEAKER) (test code = 751) MEAN CORPUSCULAR HEMOGLOBIN CONC 32.5 GM/DL 32.3-36.5 (BEAKER) (test code = 752) RED CELL DISTRIBUTION WIDTH 13.1 % 11.6-14.4 (BEAKER) (test code = 412) PLATELET COUNT (BEAKER) (test 153 K/CU MM 150-450 code = 756) MEAN PLATELET VOLUME (BEAKER) 10.3 fL 9.4-12.4 (test code = 754) NUCLEATED RED BLOOD CELLS 0 /100 WBC 0-0 (BEAKER) (test code = 413) NEUTROPHILS RELATIVE PERCENT 87 % (BEAKER) (test code = 429) LYMPHOCYTES RELATIVE PERCENT 5 % (BEAKER) (test code = 430) MONOCYTES RELATIVE PERCENT 7 % (BEAKER) (test code = 431) EOSINOPHILS RELATIVE PERCENT 0 % (BEAKER) (test code = 432) BASOPHILS RELATIVE PERCENT 0 % (BEAKER) (test code = 437) NEUTROPHILS ABSOLUTE COUNT 11.09 K/ L 1.78-5.38 H (BEAKER) (test code = 670) LYMPHOCYTES ABSOLUTE COUNT 0.67 K/ L 1.32-3.57 L (BEAKER) (test code = 414) MONOCYTES ABSOLUTE COUNT (BEAKER) 0.89 K/ L 0.30-0.82 H (test code = 415) EOSINOPHILS ABSOLUTE COUNT 0.00 K/ L 0.04-0.54 L (BEAKER) (test code = 416) BASOPHILS ABSOLUTE COUNT (BEAKER) 0.02 K/ L 0.01-0.08 (test code = 417) IMMATURE GRANULOCYTES-RELATIVE 1 % 0-1 PERCENT (BEAKER) (test code = 2801)
[2020-09-15] MEDS ORDERED: ACETAMINOPHEN 500 MG TAB ONE (20:29)
[2020-09-15] MEDS ORDERED: NA CHLORIDE 0.9% 1,000 ML ONE (20:30)
--- NOTE | 2020-09-15 20:52 | RAD REPORT ---
EXAM DESCRIPTION: Eliecer Single View09/15/2020 8:34 pm CLINICAL HISTORY: Shortness of breath COMPARISON: September 11, 2020 FINDINGS: The lungs appear clear of acute infiltrate. The heart is normal size IMPRESSION: No acute abnormalities displayed
[2020-09-15 20:59] LABS: Absolute Lymphocytes (CBC) 1.2 K/uL (0.7-4.9); Basophils % 0.7 % (0-1.3); Hematocrit 34.9 % (39.6-49.0); Lymphocytes % 14.1 % (15.3-44.8); MPV 8.7 fL (7.6-11.3); RBC Red Blood Cell Count 3.81 M/uL (4.33-5.43)
[2020-09-15 21:11] LABS: Protime INR 1.13
--- NOTE | 2020-09-15 21:11 | RAD REPORT ---
EXAM DESCRIPTION: USExtla Venous Uni Ltd09/15/2020 8:56 pm CLINICAL HISTORY: Right leg swelling. COMPARISON: None. FINDINGS: Right common femoral, superficial femoral, and right posterior tibial veins are compressi ble and demonstrate augmentation. Doppler demonstrates good flow. Thrombus is present within the periphery of the right popliteal vein. 1.7 centimeter Muir's cyst IMPRESSION: Thrombus within the right popliteal vein appears subacute
[2020-09-15 21:19] LABS: ALT/SGPT 93 U/L (12-78); AST/SGOT 184 U/L (15-37); Albumin 3.4 g/dL (3.4-5.0); Alkaline Phosphatase 58 U/L (45-117); BUN Blood Urea Nitrogen 18 mg/dL (7-18); Bicarbonate 26 mmol/L (21-32); Bilirubin Direct 0.2 mg/dL (0-0.2); Bilirubin Total 0.7 mg/dL (0.2-1.0); Glucose Level 94 mg/dL (74-106); Magnesium 1.8 mg/dL (1.8-2.4); NT PRO-BNP 794 pg/mL (<450); Potassium 4.5 mmol/L (3.5-5.1); Protein, Total 7.2 g/dL (6.4-8.2); Sodium Level 141 mmol/L (136-145); Troponin (Emerg Dept Use Only) < 0.02 ng/mL (0.0-0.045)
--- NOTE | 2020-09-15 22:58 | ER ---
Nurse's Notes [facility] Name: Stefan Lake Age: 89 yrs Sex: Male : 1930 Arrival Date: 09/15/2020 Time: 19:10 Bed 8 Private MD: Diagnosis: Cellulitis right leg. Thrombus right popliteal vein. Hematoma right thigh. S/P Fall. Elevated liver functions Presentation: 09/15 19:32 Chief complaint: Patient's son or daughter states: Sunday fell at the fitness center and was discharged home, fell at home again and thought he had a CVA. Came back to the ER and got TPA and transferred to [place]. Was discharged yesterday from [place]. Today c/o RLE redness and swelling. Coronavirus screen: Client denies travel out of the [place] in the last 14 days. At this time, the client does not indicate any symptoms associated with coronavirus-19. Ebola Screen: No symptoms or risks identified at this time. Risk Assessment: Do you want to hurt yourself or someone else? Patient reports no desire to harm self or others. Onset of symptoms was September 15, 2020. 19:32 Method Of Arrival: Wheelchair sv 19:32 Acuity: SARAH 3 sv 19:35 Initial Sepsis Screen: Does the patient meet any 2 criteria? No. Patient's initial sv sepsis screen is negative. Does the patient have a suspected source of infection? No. Patient's initial sepsis screen is negative. Triage Assessment: 19:35 General: Appears in no apparent distress. comfortable, Behavior is calm, cooperative, sv appropriate for age. Pain: Complains of pain in right leg. Neuro: Level of Consciousness is awake, alert, obeys commands, Oriented to person, place, time, situation. Respiratory: Respiratory effort is even, unlabored, Respiratory pattern is regular, symmetrical. Historical: - Allergies: 19:35 NKA; sv - PMHx: 19:35 Dementia; Hypothyroidism; sv - PSHx: 19:35 Hernia repair; sv - Immunization history:: Adult Immunizations up to date. - Social history:: Smoking status: Patient denies any tobacco usage or history of. Screenin:03 Abuse screen: Denies threats or abuse. Denies injuries from another. Nutritional rr5 screening: No deficits noted. Tuberculosis screening: No symptoms or risk factors identified. Fall Risk Fall in past 12 months (25 points). Gait- Impaired (20 pts.). Mental Status- Overestimates/Forgets Limitations (15 pts.). Total Moss Fall Scale indicates High Risk Score (45 or more points). Fall prevention measures have been instituted. Side Rails Up X 2 Frequent Obs/Assessments Occuring Family Present and informed to notify staff if the need to leave the bedside As available patient and family educated on Fall Prevention Program and Strategies. Assessment: 19:40 General: Appears in no apparent distress. comfortable, Behavior is calm, cooperative. rr5 19:40 Pain: Complains of pain in right leg. Neuro: Level of Consciousness is awake, alert, rr5 obeys commands. Cardiovascular: Capillary refill < 3 seconds Patient's skin is warm and dry. Respiratory: Airway is patent Respiratory effort is even, unlabored, Respiratory pattern is regular, symmetrical. GI: No signs and/or symptoms were reported involving the gastrointestinal system. : No signs and/or symptoms were reported regarding the genitourinary system. EENT: No signs and/or symptoms were reported regarding the EENT system. Derm: Skin temperature is warm Bruising that is dark purple, on lateral aspect of right thigh. Musculoskeletal: Swelling present in right leg redness on right lower leg noted. 20:50 Reassessment: Patient appears in no apparent distress at this time. ultrasound at rr5 bedside. 21:55 Reassessment: Patient appears in no apparent distress at this time. Patient and/or rr5 family updated on plan of care and expected duration. Pain level reassessed. awaiting for results. 22:30 Reassessment: Patient appears in no apparent distress at this time. Patient and/or rr5 family updated on plan of care and expected duration. Pain level reassessed. for admission family member and patient agreed for the plan of care. 23:30 Reassessment: Patient appears in no apparent distress at this time. Patient and/or rr5 family updated on plan of care and expected duration. Pain level reassessed. awaiting for room assignment. 09/16 00:30 Reassessment: Patient appears in no apparent distress at this time. resting closed rr5 breathing spontaneously with CPAP machine. 01:30 Reassessment: Patient appears in no apparent distress at this time. No changes from rr5 previously documented assessment. 02:30 Reassessment: Patient appears in no apparent distress at this time. Patient and/or rr5 family updated on plan of care and expected duration. Pain level reassessed. transferred to room 403 awake obeys command not in distress. Vital Signs: 09/15 19:35 BP 119 / 88; Pulse 74; Resp 16; Temp 98.6; Pulse Ox 100% ; Weight 83.91 kg; Height 5 sv ft. 8 in. (172.72 cm); 20:08 BP 131 / 72; Pulse 73; Resp 19; Temp 99.6; Pulse Ox 100% ; rr5 21:00 BP 111 / 69; Pulse 69; Resp 15; Pulse Ox 98% ; rr5 22:00 BP 123 / 62; Pulse 63; Resp 16; Temp 98.6; Pulse Ox 99% ; rr5 23:00 BP 135 / 85; Pulse 79; Resp 17; Pulse Ox 98% ; rr5 09/16 00:00 BP 129 / 75; Pulse 66; Resp 19; Pulse Ox 99% ; rr5 01:00 BP 102 / 68; Pulse 70; Resp 16; Pulse Ox 100% ; rr5 01:56 BP 100 / 58; Pulse 68; Resp 20; Temp 98.8; Pulse Ox 100% ; rr5 09/15 19:35 Body Mass Index 28.13 (83.91 kg, 172.72 cm) sv ED Course: 09/15 19:10 Patient arrived in ED. cl3 19:34 Triage completed. sv 19:35 Arm band placed on. sv 19:41 Shaheen Loya MD is Attending Physician. pkl 19:59 Alessandro Garcia RN is Primary Nurse. rr5 20:04 Patient has correct armband on for positive identification. Placed in gown. Bed in low rr5 position. Call light in reach. Side rails up X2. 20:30 Inserted saline lock: 20 gauge in left forearm, using aseptic technique. ds4 20:30 Flu and/or RSV swab sent to lab. covid. rr5 20:34 XRAY Chest (1 view) In Process Unspecified. EDMS 20:45 Inserted saline lock: 20 gauge in left hand, using aseptic technique. Blood collected. rr5 20:57 US Extremity Venous Unilateral Ltd In Process Unspecified. EDMS 21:14 Notified ED physician of a critical lab result(s). ddimer 3860. sg 21:48 US Abdomen Limited In Process Unspecified. EDMS 22:04 CT Chest For PE Angio In Process Unspecified. EDMS 22:53 [facility] MD is Hospitalizing Provider. pkl 09/16 02:00 No provider procedures requiring assistance completed. Patient admitted, IV remains in rr5 place. intact, No redness/swelling at site. Administered Medications: 09/15 20:31 Drug: Tylenol 1000 mg Route: PO; rr5 23:52 Follow up: Response: No adverse reaction rr5 20:50 Drug: NS 0.9% 1000 ml Route: IV; Rate: 100 ml/hr; Site: left hand; rr5 21:50 Follow up: Response: No adverse reaction; IV Status: Completed infusion; IV Intake: rr5 1000ml 23:21 Dru.375 grams of (Zosyn 3.375 grams, NS 0.9% 100 ml) Route: IVPB; Infused Over: 60 rr5 mins; Site: right forearm; 23:52 Follow up: Response: No adverse reaction; IV Status: Completed infusion; IV Intake: rr5 100ml 09/16 00:20 Follow up: Response: No adverse reaction; IV Status: Completed infusion; IV Intake: rr5 100ml 09/15 23:36 Drug: Eliquis 5 mg Route: PO; rr5 09/16 00:30 Follow up: Response: No adverse reaction rr5 09/15 23:52 Dru grams of (vancoMYCIN 1 grams, NS 0.9% 250 ml) Route: IVPB; Infused Over: 2 hrs; rr5 Site: right forearm; 09/16 02:00 Follow up: Response: No adverse reaction; IV Status: Completed infusion; IV Intake: rr5 250ml Intake: 09/15 21:50 IV: 1000ml; Total: 1000ml. rr5 23:05 PO: 240ml (Water); Total: 1240ml. rr5 23:52 IV: 100ml; Total: 1340ml. rr5 09/16 00:20 IV: 100ml; Total: 1440ml. rr5 02:00 IV: 250ml; Total: 1690ml. rr5 Output: 09/15 23:05 Urine: 700ml (Voided); Total: 700ml. rr5 09/16 02:13 Urine: 300ml (Voided); Total: 1000ml. rr5 Outcome: 09/15 22:58 Decision to Hospitalize by Provider. pkaddy 09/16 02:00 Admitted to Tele accompanied by tech, via stretcher, room 403, with chart, Report rr5 called to fred Condition: stable Instructed on the need for admit. 02:32 Patient left the ED. rr5 Signatures: Dispatcher [employer] EDDevora Velasquez RN RN sv Gay, Steven, RN RN sg Lam, Pin, MD MD pkl Vinicius Weston ds4 Alessandro Garcia RN RN rr5 [place] cl3 Corrections: (The following items were deleted from the chart) 02:12 01:56 BP 100 / 58; Pulse 68bpm; Resp 20bpm; Pulse Ox 100%; rr5 rr5
--- NOTE | 2020-09-15 22:58 | EDPHYS ---
Physician Documentation [facility] Name: Stefan Lake Age: 89 yrs Sex: Male : 1930 Arrival Date: 09/15/2020 Time: 19:10 Bed 8 Private MD: ED Physician Shaheen Loya HPI: 09/15 20:20 This 89 yrs old Male presents to ER via Wheelchair with complaints of Fall pkl Injury, Leg Swelling. 20:20 The patient presents with swelling, erythema. The complaints affect the right leg. pkl Onset: The symptoms/episode began/occurred this morning. Patient was seen in seen in the ER here 4 days ago for weakness left upper and lower extremities. Diagnosed with CVA and started on TPA and transferred to [facility]. Was evaluated thoroughly at [facility] and told he did not have CVA. Patient was having fever for the past few days and was put on antibiotics. Historical: - Allergies: 19:35 NKA; sv - PMHx: 19:35 Dementia; Hypothyroidism; sv - PSHx: 19:35 Hernia repair; sv - Immunization history:: Adult Immunizations up to date. - Social history:: Smoking status: Patient denies any tobacco usage or history of. ROS: 20:20 Eyes: Negative for injury, pain, redness, and discharge, ENT: Negative for injury, pkl pain, and discharge, Neck: Negative for injury, pain, and swelling, Cardiovascular: Negative for chest pain, palpitations, and edema, Respiratory: Negative for shortness of breath, cough, wheezing, and pleuritic chest pain, Abdomen/GI: Negative for abdominal pain, nausea, vomiting, diarrhea, and constipation, Back: Negative for injury and pain, : Negative for injury, bleeding, discharge, and swelling. 20:20 MS/extremity: Positive for erythema, swelling, warmth, of the right leg. 20:20 Skin: Positive for cellulitis, erythema, swelling, of the right leg. 20:20 Neuro: Negative for altered mental status. Exam: 20:20 Head/Face: Normocephalic, atraumatic. Eyes: Pupils equal round and reactive to light, pkl extra-ocular motions intact. Lids and lashes normal. Conjunctiva and sclera are non-icteric and not injected. Cornea within normal limits. Periorbital areas with no swelling, redness, or edema. ENT: Nares patent. No nasal discharge, no septal abnormalities noted. Tympanic membranes are normal and external auditory canals are clear. Oropharynx with no redness, swelling, or masses, exudates, or evidence of obstruction, uvula midline. Mucous membranes moist. Neck: Trachea midline, no thyromegaly or masses palpated, and no cervical lymphadenopathy. Supple, full range of motion without nuchal rigidity, or vertebral point tenderness. No Meningismus. Chest/axilla: Normal chest wall appearance and motion. Nontender with no deformity. No lesions are appreciated. Cardiovascular: Regular rate and rhythm with a normal S1 and S2. No gallops, murmurs, or rubs. Normal PMI, no JVD. No pulse deficits. Respiratory: Lungs have equal breath sounds bilaterally, clear to auscultation and percussion. No rales, rhonchi or wheezes noted. No increased work of breathing, no retractions or nasal flaring. Abdomen/GI: Soft, non-tender, with normal bowel sounds. No distension or tympany. No guarding or rebound. No evidence of tenderness throughout. Back: No spinal tenderness. No costovertebral tenderness. Full range of motion. Neuro: Awake and alert, GCS 15, oriented to person, place, time, and situation. Cranial nerves II-XII grossly intact. Motor strength 5/5 in all extremities. Sensory grossly intact. Cerebellar exam normal. Normal gait. 20:20 Musculoskeletal/extremity: Extremities: grossly normal except: noted in the right leg: swelling, erythema. 20:20 Skin: cellulitis, that is moderate, on the right leg. Vital Signs: 19:35 BP 119 / 88; Pulse 74; Resp 16; Temp 98.6; Pulse Ox 100% ; Weight 83.91 kg; Height 5 sv ft. 8 in. (172.72 cm); 20:08 BP 131 / 72; Pulse 73; Resp 19; Temp 99.6; Pulse Ox 100% ; rr5 21:00 BP 111 / 69; Pulse 69; Resp 15; Pulse Ox 98% ; rr5 22:00 BP 123 / 62; Pulse 63; Resp 16; Temp 98.6; Pulse Ox 99% ; rr5 23:00 BP 135 / 85; Pulse 79; Resp 17; Pulse Ox 98% ; rr5 09/16 00:00 BP 129 / 75; Pulse 66; Resp 19; Pulse Ox 99% ; rr5 01:00 BP 102 / 68; Pulse 70; Resp 16; Pulse Ox 100% ; rr5 01:56 BP 100 / 58; Pulse 68; Resp 20; Temp 98.8; Pulse Ox 100% ; rr5 09/15 19:35 Body Mass Index 28.13 (83.91 kg, 172.72 cm) sv MDM: 09/15 19:41 Patient medically screened. pkl 21:34 Data reviewed: vital signs, nurses notes, lab test result(s), EKG, radiologic studies, pkl CT scan, plain films, ultrasound. ED course: Large ecchymosis noted right lateral thigh. 22:51 Data reviewed: vital signs, nurses notes, lab test result(s), EKG, radiologic studies, pkl CT scan, plain films, ultrasound. ED course: Talked to Dr. Heart 2 hours ago, admit. 09/15 20:11 Order name: Basic Metabolic Panel; Complete Time: 21:24 pkl 09/15 20:11 Order name: CBC with Diff; Complete Time: 21:10 pkl 09/15 20:11 Order name: LFT's; Complete Time: 21:24 pkl 09/15 20:11 Order name: Magnesium; Complete Time: 21:24 pkl 09/15 20:11 Order name: NT PRO-BNP; Complete Time: 21:24 pkl 09/15 20:11 Order name: PT-INR; Complete Time: 21:15 pkl 09/15 20:11 Order name: Troponin (emerg Dept Use Only); Complete Time: 21:24 pkl 09/15 20:11 Order name: Blood Culture Adult (2) pkl 09/15 20:11 Order name: Lactate; Complete Time: 21:24 pkl 09/15 20:11 Order name: D-Dimer; Complete Time: 21:15 pkl 09/15 20:13 Order name: Sed Rate; Complete Time: 21:24 pkl 09/15 20:13 Order name: TSH; Complete Time: 21:24 pkl 09/15 20:13 Order name: COVID-19 pkl 09/15 20:18 Order name: Flu; Complete Time: 21:10 pkl 09/15 20:11 Order name: XRAY Chest (1 view); Complete Time: 21:10 pkl 09/15 20:11 Order name: EKG; Complete Time: 20:13 pkl 09/15 20:11 Order name: US Extremity Venous Unilateral Ltd; Complete Time: 21:15 pkl 09/15 21:26 Order name: US Abdomen Limited pkl 09/15 21:30 Order name: CT Chest For PE Angio pkl 09/15 23:31 Order name: CONS Pharmacy Consult EDMS 09/15 23:31 Order name: Regular EDMS 09/15 23:31 Order name: Basic Metabolic Panel EDMS 09/15 23:31 Order name: Basic Metabolic Panel EDMS 09/15 23:31 Order name: CBC with Automated Diff EDMS 09/15 23:31 Order name: CBC with Automated Diff EDMS 09/15 20:11 Order name: Cardiac monitoring; Complete Time: 20:50 pkl 09/15 20:11 Order name: EKG - Nurse/Tech; Complete Time: 21:02 pkl 09/15 20:11 Order name: IV Saline Lock; Complete Time: 20:50 pkl 09/15 20:11 Order name: Labs collected and sent; Complete Time: 20:50 pkl 09/15 20:11 Order name: O2 Per Protocol; Complete Time: 20:50 pkl 09/15 20:11 Order name: O2 Sat Monitoring; Complete Time: 20:50 pkl Administered Medications: 20:31 Drug: Tylenol 1000 mg Route: PO; rr5 23:52 Follow up: Response: No adverse reaction rr5 20:50 Drug: NS 0.9% 1000 ml Route: IV; Rate: 100 ml/hr; Site: left hand; rr5 21:50 Follow up: Response: No adverse reaction; IV Status: Completed infusion; IV Intake: rr5 1000ml 23:21 Dru.375 grams of (Zosyn 3.375 grams, NS 0.9% 100 ml) Route: IVPB; Infused Over: 60 rr5 mins; Site: right forearm; 23:52 Follow up: Response: No adverse reaction; IV Status: Completed infusion; IV Intake: rr5 100ml 09/16 00:20 Follow up: Response: No adverse reaction; IV Status: Completed infusion; IV Intake: rr5 100ml 09/15 23:36 Drug: Eliquis 5 mg Route: PO; rr5 09/16 00:30 Follow up: Response: No adverse reaction rr5 09/15 23:52 Dru grams of (vancoMYCIN 1 grams, NS 0.9% 250 ml) Route: IVPB; Infused Over: 2 hrs; rr5 Site: right forearm; 09/16 02:00 Follow up: Response: No adverse reaction; IV Status: Completed infusion; IV Intake: rr5 250ml Disposition: 09/15/20 22:58 Hospitalization ordered by [facility] for Inpatient Admission. Preliminary diagnosis is Cellulitis right leg. Thrombus right popliteal vein. Hematoma right thigh. S/P Fall. Elevated liver functions. - Bed requested for Telemetry/MedSurg (Inpatient). - Status is Inpatient Admission. rr5 - Condition is Stable. - Problem is new. - Symptoms are unchanged. Signatures: Dispatcher [employer] Devora Tsai RN RN sv Lam, Pin, MD MD Alessandro Lopez RN RN rr5 Franny Garcia sr6 Corrections: (The following items were deleted from the chart) 01:39 09/15 22:58 Hospitalization Ordered by [facility] MD for Inpatient Admission. sr6 Preliminary diagnosis is Cellulitis right leg. Thrombus right popliteal vein. Hematoma right thigh. S/P Fall. Elevated liver functions. Bed requested for Telemetry/MedSurg (Inpatient). Status is Inpatient Admission. Condition is Stable. Problem is new. Symptoms are unchanged. pkl 09/16 02:32 01:39 09/15/2020 22:58 Hospitalization Ordered by [facility] MD for Inpatient rr5 Admission. Preliminary diagnosis is Cellulitis right leg. Thrombus right popliteal vein. Hematoma right thigh. S/P Fall. Elevated liver functions. Bed requested for Telemetry/MedSurg (Inpatient). Status is Inpatient Admission. Condition is Stable. Problem is new. Symptoms are unchanged. sr6
[2020-09-15] MEDS ORDERED: NA CHLORIDE 0.9% 250 ML ONE (23:26)
[2020-09-15] MEDS ORDERED: PIPER/TAZO/NS 3.375gm 3.375 GM/100 ML BAG ONE (23:26)
[2020-09-15] MEDS ORDERED: VANCOMYCIN 1 GM/VIAL ONE (23:26)
[2020-09-15] MEDS ORDERED: VANCOMYCIN/NS 1 gm 1 GM/250 ML BAG IVPB SCH (23:30)
[2020-09-15] MEDS ORDERED: APIXABAN 5 MG TABLET ONE (23:32)
[2020-09-16] MEDS: NA CHLORIDE 0.9% 1,000 ML IV SCH ×3 (03:00→21:10)
[2020-09-16] MEDS ORDERED: VANCOMYCIN 500 MG in NA CHLORIDE 0.9% 100 ML IVPB ONE (03:00)
[2020-09-16] MEDS ORDERED: VANCOMYCIN 500 MG/VIAL ONE (03:33)
[2020-09-16] MEDS ORDERED: NA CHLORIDE 0.9% 100 ML ONE (03:33)
[2020-09-16 04:07] VITALS: BMI 28.8
[2020-09-16 04:58] LABS: Absolute Lymphocytes (CBC) 1.1 K/uL (0.7-4.9); Basophils % 0.2 % (0-1.3); Hematocrit 31.2 % (39.6-49.0); Lymphocytes % 16.7 % (15.3-44.8); MPV 8.9 fL (7.6-11.3); RBC Red Blood Cell Count 3.39 M/uL (4.33-5.43)
[2020-09-16 05:09] LABS: Potassium 3.9 mmol/L (3.5-5.1)
--- NOTE | 2020-09-16 06:04 | EKG ---
Test Date: 2020-09-15 Test Time: 20:59:03 Acoustical Carpenter: RR MEASUREMENT RESULTS: Intervals: Rate: 70 PA: 248 QRSD: 94 QT: 406 QTc: 438 Spooner: P: 60 PA: 248 QRS: -43 T: 65 INTERPRETIVE STATEMENTS: Sinus rhythm with 1st degree AV block Left axis deviation Anteroseptal infarct, age undetermined Abnormal ECG Compared to ECG 09/11/2020 18:43:17 No significant changes Electronically Signed On 09-16-20 06:02:58 CONFIGURATION SPECIALIST by Dragan Ballard
--- NOTE | 2020-09-16 08:04 | RAD REPORT ---
EXAM DESCRIPTION: US - Abdomen Exam Limited - 09/15/2020 9:48 pm CLINICAL HISTORY: elevated liver functions Preliminary findings were provided at the time of the study. COMPARISON: Stone Protocol dated 10/21/2017 FINDINGS: Liver is 16-17 cm in maximum dimension. No capsule nodularity or focal liver parenchymal l esion. Slight increased liver parenchymal echogenicity is noted. This is nonspecific but can be seen in mild diffuse fatty infiltration. Doppler evaluation shows no portal vein abnormality. Common bile duct is normal with no common duct stone identified. Gallbladder size is normal. Trace amount of sludge is suspected. There are no stones identified. Wall is upper normal. No pericholecystic fluid. IMPRESSION: Suspected mild fatty infiltration of a normal size liver. No focal liver lesions seen. Small amount of sludge in the gallbladder.
[2020-09-16 08:55] LABS: Platelet Estimate ADEQ
[2020-09-16 08:56] LABS: Blood Morphology Comment NOT SEEN (NOT SEEN)
[2020-09-16] MEDS: APIXABAN 5 MG TABLET PO SCH ×2 (09:03→20:49)
[2020-09-16] MEDS: PIPER/TAZO/NS 3.375gm 3.375 GM/100 ML BAG IVPB SCH ×2 (10:00→17:16)
--- NOTE | 2020-09-16 10:21 | RAD REPORT ---
EXAM DESCRIPTION: CT - Chest For Pe Angio - 09/16/2020 6:37 am CLINICAL HISTORY: Elevated D-dimer, DVT right leg TECHNIQUE: Contiguous axial images obtained through the chest during angiographic phase following th e uneventful administration of IV contrast. Sagittal and coronal reformatted images were provided. DE P reformatted images were provided. This exam was performed according to our departmental dose-optimization program, which includes autom ated exposure control, adjustment of the mA and/or kV according to patient size and/or use of iterati ve reconstruction technique. COMPARISON: No prior exams provided for comparison. FINDINGS: Diagnostic quality: There is good opacification of the pulmonary arterial tree. Motion art ifact degrades image quality and limits evaluation of segmental and subsegmental vessels. Lungs: Minimal bibasilar subsegmental atelectasis. No focal consolidation. Airways are patent. Pleura: No effusion. No pneumothorax. Heart and pericardium: The heart is enlarged. No pericardial effusion. Mediastinum and carolin: No pathologically enlarged lymph nodes. Lower neck and chest wall: Unremarkable Vessels: No pulmonary arterial filling defects. Mild atherosclerotic disease. No thoracic aortic aneu rysm. Upper abdomen: The liver is enlarged. Hepatic parenchymal calcification compatible with remote granul omatous organism exposure. Bones: Multilevel spondylosis. No acute fracture. IMPRESSION: 1. Motion artifact degrades image quality and limits evaluation of segmental and subse gmental vessels. No central pulmonary embolic disease. 2. No focal infiltrate. 3. Other findings as above. Electronically signed by: Anthony Brady MD 09/15/2020 10:21 PM [employer] CONSULTANT Due to temporary technical issues with the PACS/Fluency reporting system, reports are being signed by the in house radiologist without review as a courtesy to ensure prompt reporting. The interpreting r adiologist is fully responsible for the content of the report.
[2020-09-17] MEDS ORDERED: VANCOMYCIN 1.5 GM in NA CHLORIDE 0.9% 500 ML IVPB SCH ×2
[2020-09-17] MEDS: PIPER/TAZO/NS 3.375gm 3.375 GM/100 ML BAG IVPB SCH ×3 (01:43→17:11)
[2020-09-17] MEDS: LEVOTHYROXINE SOD 0.075 MG TAB PO SCH (05:43)
[2020-09-17] MEDS: NA CHLORIDE 0.9% 1,000 ML IV SCH (05:45)
[2020-09-17] MEDS ORDERED: FUROSEMIDE 20 MG/ 2ML VIAL IV ONE ×2 (08:22→19:00)
[2020-09-17] MEDS ORDERED: HYDROCORTISONE SUC 100 MG INJ IV ONE (08:22)
--- NOTE | 2020-09-17 08:27 | P.PN ---
Subjective Date of Service: 09/17/20 Patient is doing well no new complaints. Erythema has improved. Pain is improved as well. Swelling is improving. Review of Systems 10-point ROS is otherwise unremarkable Physical Examination - Vital Signs Temperature: 98.7 F Blood Pressure: 155/81 Pulse: 70 Respirations: 18 Pulse Ox (%): 97 - Physical Exam General: Alert, In no apparent distress, Oriented x3 Respiratory: Clear to auscultation bilaterally, Normal air movement Cardiovascular: Regular rate/rhythm, Normal S1 S2, No murmurs Gastrointestinal: Normal bowel sounds, Soft and benign, Non-distended, No tenderness Musculoskeletal: No clubbing, Swelling, Erythema, Tenderness Integumentary: No rashes, Tenderness/swelling, Erythema, Warmth Neurological: Sensation intact, Cranial nerves 3-12 intact - Studies Microbiology Data (last 24 hrs): 09/15/20 20:25 Nasopharnyx Coronavirus COVID-19 PCR - Final Medications List Reviewed: Yes Assessment & Plan - Problems (Diagnosis) (1) Cellulitis of right lower extremity Status: Acute (2) Deep venous thrombosis of right popliteal vein Status: Acute (3) History of fall Status: Acute (4) History of atrial fibrillation Status: Acute (5) History of CVA (cerebrovascular accident) Status: Acute - Plan Continue with plan of care as mentioned below 1. Continue with IV antibiotic 2. Continue with local wound care 3. Continue with anticoagulation 4. Gentle IV hydration 5. Monitor CBC 6. Strict blood sugar monitoring 7. Pain control 8. GI and DVT prophylaxis Discharge Plan: Home Plan to discharge in: Greater than 2 days - Advance Directives Does patient have a Living Will: Yes Does patient have a Durable POA for Healthcare: No - Code Status/Comfort Care Code Status: Full Code Critical Care: No Time Spent Managing PTS Care (In Minutes): 35
--- NOTE | 2020-09-17 08:27 | P.HP ---
Certification for Inpatient Patient admitted to: Inpatient With expected LOS: >2 Midnights Patient will require the following post-hospital care: None Practitioner: I am a practitioner with admitting privileges, knowledge of patient current condition, hospital course, and medical plan of care. Services: Services provided to patient in accordance with Admission requirements found in Title 42 Section 412.3 of the Code of Federal Regulations Patient History Date of Service: 09/16/20 Reason for admission: cellulitis of the right lower extremity and new onset DVT status post fall History of Present Illness: Patient is an 89-year-old gentleman who came into the hospital with swelling of the right lower extremity. Patient also had erythema as well as the edema. Patient has fallen a week ago and suffered a large hematoma to the right arm and right hip region. He was in the hospital for a few days for evaluation of a stroke. This was not confirmed. It was felt the patient did have atrial fibrillation and he was started on anticoagulation and he was also given medication for rate control. Patient got home and his right lower extremity has started swelling up. There was also significant amount of erythema in the right lower extremity. Patient was brought into the hospital and he was seen in the emergency room. The erythema extended from the ankle up to the knee. There was some streaking as well. Patient had a Doppler done which revealed a popliteal DVT. Patient will be admitted to the hospital for treatment of his cellulitis and his DVT. 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 moist/pink, EOMI, Sclerae nonicteric Neck: Supple, 2+ carotid pulse no bruit, No LAD, Without JVD or thyroid abnormality Respiratory: Clear to auscultation bilaterally, Normal air movement Cardiovascular: Regular rate/rhythm, Normal S1 S2 Gastrointestinal: Normal bowel sounds, Soft and benign, Non-distended, No tenderness Musculoskeletal: Tenderness Integumentary: Tenderness/swelling, Erythema, Warmth, Other Neurological: Normal speech, Normal tone, Sensation intact, Cranial nerves 3-12 intact, Normal affect, Abnormal gait, Abnormal strength Lymphatics: No axilla or inguinal lymphadenopathy - Studies Microbiology Data (last 24 hrs): 09/15/20 20:25 Nasopharnyx Coronavirus COVID-19 PCR - Final Assessment & Plan - Problems (Diagnosis) (1) Cellulitis of right lower extremity Current Visit: Yes Status: Acute (2) Deep venous thrombosis of right popliteal vein Current Visit: Yes Status: Acute (3) History of fall Current Visit: Yes Status: Acute (4) History of atrial fibrillation Current Visit: Yes Status: Acute (5) History of CVA (cerebrovascular accident) Current Visit: Yes Status: Acute - Plan 1. Continue with IV antibiotic 2. Continue with local wound care 3. Continue with anticoagulation 4. Gentle IV hydration 5. Monitor CBC 6. Strict blood sugar monitoring 7. Pain control 8. GI and DVT prophylaxis Discharge Plan: Home Plan to discharge in: Greater than 2 days - Advance Directives Does patient have a Living Will: Yes Does patient have a Durable POA for Healthcare: No - Code Status/Comfort Care Code Status Assessed: Yes Code Status: Full Code Critical Care: No Time Spent Managing PTS Care (In Minutes): 45
[2020-09-17] MEDS: PREVAGEN ES PO SCH (09:00)
[2020-09-17] MEDS: METOPROLOL TAR 25 MG TAB PO SCH (09:07)
[2020-09-17] MEDS: MULTIVIT W/ MINERAL TAB PO SCH (09:07)
[2020-09-17] MEDS: APIXABAN 5 MG TABLET PO SCH ×2 (09:07→19:58)
[2020-09-17] MEDS: PANTOPRAZOLE 40MG TABLET PO SCH (09:07)
[2020-09-17 10:58] LABS: Absolute Lymphocytes (CBC) 0.9 K/uL (0.7-4.9); Basophils % 0.8 % (0-1.3); Hematocrit 32.1 % (39.6-49.0); Lymphocytes % 11.2 % (15.3-44.8); MPV 8.4 fL (7.6-11.3); RBC Red Blood Cell Count 3.49 M/uL (4.33-5.43)
[2020-09-17 11:13] LABS: Albumin 2.8 g/dL (3.4-5.0); Bilirubin Total 0.6 mg/dL (0.2-1.0); Potassium 4.1 mmol/L (3.5-5.1); Protein, Total 6.6 g/dL (6.4-8.2)
[2020-09-18] MEDS: PIPER/TAZO/NS 3.375gm 3.375 GM/100 ML BAG IVPB SCH ×2 (00:37→09:19)
[2020-09-18] MEDS: LEVOTHYROXINE SOD 0.075 MG TAB PO SCH (05:39)
[2020-09-18 08:35] VITALS: O2SAT 96
[2020-09-18] MEDS ORDERED: FUROSEMIDE 20 MG/ 2ML VIAL IV ONE (08:43)
[2020-09-18] MEDS ORDERED: ALBUMIN HUMAN 25% 50 ML IV ONE (08:43)
[2020-09-18] MEDS: PREVAGEN ES PO SCH (09:00)
[2020-09-18] MEDS: PANTOPRAZOLE 40MG TABLET PO SCH (09:20)
[2020-09-18] MEDS: METOPROLOL TAR 25 MG TAB PO SCH (09:20)
[2020-09-18] MEDS: MULTIVIT W/ MINERAL TAB PO SCH (09:21)
[2020-09-18] MEDS: APIXABAN 5 MG TABLET PO SCH (09:23)
[2020-09-21 03:25] VITALS: BP 155/81; TEMP 98.7
--- NOTE | 2020-09-21 03:26 | P.DS ---
Discharge Date: 09/18/20 Disposition: ROUTINE DISCHARGE Discharge Condition: GOOD Reason for Admission: cellulitis of the right lower extremity and new onset DVT status post fall - Problems (1) Cellulitis of right lower extremity Status: Acute (2) Deep venous thrombosis of right popliteal vein Status: Acute (3) History of fall Status: Acute (4) History of atrial fibrillation Status: Acute (5) History of CVA (cerebrovascular accident) Status: Acute Brief History of Present Illness: Patient is an 89-year-old gentleman who came into the hospital with swelling of the right lower extremity. Patient also had erythema as well as the edema. Patient has fallen a week ago and suffered a large hematoma to the right arm and right hip region. He was in the hospital for a few days for evaluation of a stroke. This was not confirmed. It was felt the patient did have atrial fibrillation and he was started on anticoagulation and he was also given medication for rate control. Patient got home and his right lower extremity has started swelling up. There was also significant amount of erythema in the right lower extremity. Patient was brought into the hospital and he was seen in the emergency room. The erythema extended from the ankle up to the knee. There was some streaking as well. Patient had a Doppler done which revealed a popliteal DVT. Patient will be admitted to the hospital for treatment of his cellulitis and his DVT. Hospital Course: Patient is doing well with no complaints. Patient erythema and edema has improved. Kidder is stable for discharge on anticoagulation and antibiotic therapy. Vital Signs/Physical Exam: Temp Pulse Resp BP Pulse Ox 98.7 F 70 18 155/81 H 97 09/21/20 03:25 09/21/20 03:25 09/21/20 03:25 09/21/20 03:25 09/21/20 03:25 General: Alert, In no apparent distress, Oriented x3 Laboratory Data at Discharge: WBC 8.0 K/uL (4.3-10.9) D 09/17/20 10:40 Hgb 11.1 g/dL (13.6-17.9) L 09/17/20 10:40 Hct 32.1 % (39.6-49.0) L 09/17/20 10:40 Plt Count 213 K/uL (152-406) 09/17/20 10:40 PT 13.3 SECONDS (9.5-12.5) H 09/15/20 20:45 INR 1.13 09/15/20 20:45 Sodium 143 mmol/L (136-145) 09/17/20 10:40 Potassium 4.1 mmol/L (3.5-5.1) 09/17/20 10:40 BUN 10 mg/dL (7-18) 09/17/20 10:40 Creatinine 1.11 mg/dL (0.55-1.3) 09/17/20 10:40 Glucose 95 mg/dL (74-106) 09/17/20 10:40 Magnesium 1.8 mg/dL (1.8-2.4) 09/15/20 20:45 Total Bilirubin 0.6 mg/dL (0.2-1.0) 09/17/20 10:40 AST 82 U/L (15-37) H D 09/17/20 10:40 ALT 63 U/L (12-78) 09/17/20 10:40 Alkaline Phosphatase 51 U/L (45-117) 09/17/20 10:40 Home Medications: Apixaban [Eliquis *] 5 mg PO BID 09/16/20 Levothyroxine [Synthroid*] 75 mcg PO [id number] 09/16/20 Metoprolol Tartrate [Lopressor*] 25 mg PO DAILY 09/16/20 Multivit-Min/FA/Lycopen/Lutein [Centrum Silver Tablet] 1 tab PO DAILY 09/16/20 Omeprazole 20 mg PO DAILY 09/16/20 Prevagen Es 1 tab PO DAILY 09/16/20 Patient Discharge Instructions: OK TO DC IV AND DC HOME. FOLLOW-UP WITH PRIMARY CARE PROVIDER IN 1-2 WEEKS. RETURN TO THE ER IF symptoms worsen. CALL or TEXT DR. HELMS AT [phone] IF ANY QUESTIONS REGARDING HOSPITAL STAY. PLEASE CALL THE FLOOR AT [phone] IF ANY MEDICATION OR NURSING QUESTIONS. Diet: AHA Activity: Fall precautions Followup: Yuko Heart MD [Primary Care Provider] - (call to schedule appointment) Time spent managing pt's care (in minutes): 35
== END 2020-09-18 16:02 | disposition home or self-care (01) | DRG 300 ==
LOC: ER 19:09 → 4TH 09-16 02:01
PROVIDERS: ADMIT Hospitalist; ATTEND Hospitalist
DX: I82.431 Acute embolism and thrombosis of right popliteal vein (principal); L03.115 Cellulitis of right lower limb; I48.91 Unspecified atrial fibrillation; E03.9 Hypothyroidism, unspecified; W18.30XA Fall on same level, unspecified, initial encounter; Z91.81 History of falling; Z79.01 Long term (current) use of anticoagulants; Z79.890 Hormone replacement therapy; Z79.899 Other long term (current) drug therapy; Z86.73 Personal history of transient ischemic attack (TIA), and cerebral infarction without residual deficits; Z20.828 Contact with and (suspected) exposure to other viral communicable diseases
CPT/HCPCS: 36415; 71045; 71275; 76705; 80048; 80053; 80076; 83605; 83735; 83880; 84443; 84484; 85025; 85379; 85610; 85652; 87040; 87804; 93005; 93971; 96361; 96365; 96366; 96367; 97116; 97161; 99285; J1720; J1940; J2543; J3370; J7030; J7040; J7050; P9047; Q9967; U0002

== ENCOUNTER 2021-01-24 19:24 | Inpatient (IN) | payer OTHER ==
--- OUTSIDE RECORDS SUMMARY | 2021-01-24 19:28 | XMS REPORT | Continuity of Care Document ---
:1930 Author Organization [facility] t Address [address] [place] [address] Care Team Providers Name Role Phone DHEERAJ SANTANA Attending Clinician Unavail able Dheeraj Santana MD Attending Clinician Navdeep JOHNSON Attending Clinician Darrin Attending Clinician Unavailable DHEERAJ SANTANA Admitting Clinician Unavail able Payers Payer Name Policy Type Policy Effective Date Expiration Date Sour ce Number WELLCARE MEDICARE [id number] [address] [facility] MGD CAREWELLCARE 00:00:00 - Medica l [id number] Center /2019-Present Problems Condition Condition Condition Status Onset Resolution Last Treating Co mments Source Name Details Category Date Date Treatment Clinician Date Essential Essential Disease Active 2019-[address] [facility] hypertensi hypertensi 1-15 [place] - on on 00:00: Medical 00 [place] SIRS SIRS Disease Active 2019-[address] [facility] [address] (systemic (systemic 1-15 [facility] - inflammato inflammato 00:00: Me dical ry ry 00 Center response response syndrome) syndrome) WILLIAM (acute WILLIAM (acute Disease Active 2019-[address] kidney kidney 1-15 [facility] - injury) injury) 00:00: Medical 00 [place] Acute Acute Disease Active 2019-[address] [facility] [address] ischemic ischemic 1-15 [facility] - stroke stroke 00:00: Medical 00 Center Received Received Disease Active 2019-10 [facility] intravenou intravenou 1-15 [place] - s tissue s tissue 00:00: Medica l plasminoge plasminoge 00 Ce nter n n activator activator (tPA) in (tPA) in emergency emergency department department Left-sided Left-sided Disease Active 2019-[address] weakness weakness 1-14 [facility] - 00:00: Medical 00 [place] Atrial Atrial Disease Active [facility] fibrillati fibrillati [place] - on, new on, new Medical onset onset Center Allergies, Adverse Reactions, Alerts This patient has no known allergies or adverse reactions. Social History Social Habit Start Date Stop Date Quantity Comments Source Sex Assigned At [facility] Medications Ordered Filled Start Stop Current Ordering Indication Dosage Frequency Signature Comments Components Source Medication Medication Date Date Medication? Clinician (SIG) Name Name levothyroxi 2019-10 Yes 75ug Take [address] [facility] ne 1-17 mcg by [facility] - (SYNTHROID, 11:57: mouth Medic al LEVOTHROID) 33 Every Center 75 MCG morning on tablet an empty stomach. amLODIPine 2019-10- No 5mg QD Take [address] (NORVASC) 5 11-14 by mouth Britney es - MG tablet 09:44: 00:00 daily. Medic al 54 :00 [place] metoprolol 2019-10- No 12.5mg Q.5D Take 0.5 [facility] St tartrate 11-14 tablets [facility] - (LOPRESSOR) 00:00: 23:59 (12.5 mg M edical 25 MG 00 :00 total) by Center tablet mouth 2 (two) times daily. apixaban 2019-10 No 5mg Q.5D Take [address] (ELIQUIS) 5 11-14 02-15 tablet (5 [place] - mg Tab 00:00: 23:59 mg total) Medic al tablet 00 :00 by mouth 2 Center (two) times daily for 90 days. Vital Signs Vital Name Observation Time Observation Value Comments Source Systolic blood 2020-09-14 09:00:00 123 mm[Hg] [facility] Diastolic blood 2020-09-14 09:00:00 75 mm[Hg] [facility] S t [facility] Heart rate 2020-09-14 09:00:00 74 /min [facility] L [facility] Body temperature 2020-09-14 09:00:00 36.28 Mary [facility] Respiratory rate 2020-09-14 09:00:00 19 /min [facility] Oxygen saturation in 2020-09-14 09:00:00 96 /min [facility] Arterial blood by Medical Ce nter Pulse oximetry Body height 2020-09-12 14:23:00 172.7 cm [facility] Body weight 2020-09-12 14:23:00 119.2 kg [facility] BMI 2020-09-12 14:23:00 39.96 kg/m2 [facility] Procedures Procedure Date / Time Performing Clinician Source Performed CBC W/PLT COUNT & AUTO 2020-09-14 06:04:00 Casanova [facility] BASIC METABOLIC PANEL 2020-09-14 06:04:00 Edilberto [facility] () [facility] MAGNESIUM 2020-09-14 06:04:00 Edilberto [facility] PHOSPHORUS 2020-09-14 06:04:00 Edilberto [facility] ECG 12-LEAD 2020-09-13 17:12:17 Unknown, Hl7 Doctor [facility] 2D ECHO W/ DOPPLER 2020-09-13 12:56:[address] [facility] (CW/PW/COLOR) [facility] URINALYSIS W/ REFLEX 2020-09-13 12:46:00 [facility] URINE CULTURE [facility] PROCALCITONIN 2020-09-13 12:13:00 Edilberto [facility] C-REACTIVE PROTEIN 2020-09-13 12:13:00 Edilberto [facility] VANCOMYCIN LEVEL, RANDOM 2020-09-13 10:36:00 Vira Concepcion [facility] TROPONIN I 2020-09-13 10:36:00 F[facility] BASIC METABOLIC PANEL 2020-09-13 06:43:00 Edilberto [facility] () [facility] MAGNESIUM 2020-09-13 06:43:00 Edilberto [facility] PHOSPHORUS 2020-09-13 06:43:00 Sharita Casanova [facility] CREATINE KINASE (CK) 2020-09-13 06:43:00 Sharita Casanova [facility] CBC W/PLT COUNT & AUTO 2020-09-13 05:06:[address] [facility] HEMOGLOBIN A1C 2020-09-13 05:06:00 [facility] TROPONIN I 2020-09-13 05:06:00 F[facility]se [facility] BASIC METABOLIC PANEL 2020-09-12 22:16:00 [facility] (7) [facility] MAGNESIUM 2020-09-12 22:16:00 F[facility]se [facility] PHOSPHORUS 2020-09-12 22:16:00 [facility] 2020-09-12 22:16:00 [facility] CALCIUM, IONIZED 2020-09-12 22:16:00 [facility] BLOOD CULTURE 2020-09-12 22:15:00 Poornima Casanova [facility] Ce nter [place] ANTIBODIES 2020-09-12 22:15:00 EDSON Santana [facility] (IGG, IGM) [facility] Ce nter MR BRAIN WITHOUT IV 2020-09-12 18:11:00 Sangita Catalan [facility] SARS-COV2/RT-PCR ([facility] & 2020-09-12 15:08:00 Sharita Casanova [facility] REF LABS) [facility] RESPIRATORY PANEL [facility] 2020-09-12 15:08:00 Sangita Catalan [facility] RAPID INFLUENZA A&B 2020-09-12 15:08:00 Sangita Catalan [facility] XR CHEST 1 VIEW 2020-09-12 04:55:00 Diandra Kilpatrick [facility] PORTABLE/BEDSIDE Medical Center VANCOMYCIN LEVEL, RANDOM 2020-09-12 03:24:00 [facility] PROCALCITONIN 2020-09-12 03:24:00 [facility]se [facility] TSH/FREE T4 IF INDICATED 2020-09-12 03:24:00 [facility] VITAMIN B12 AND FOLATE 2020-09-12 03:24:00 Diandra Kilpatrick [facility] RPR 2020-09-12 03:24:00 [facility] HEPATIC FUNCTION PANEL 2020-09-12 03:24:00 [facility]se [facility] PROTHROMBIN TIME/INR 2020-09-12 03:24:00 [facility] LACTIC ACID, VENOUS 2020-09-12 01:33:00 Poornima Casanova [facility] Ce nter CBC W/PLT COUNT & AUTO 2020-09-12 [facility]:25[facility] [facility] BLOOD CULTURE 2020-09-12 01:25[facility] MAGNESIUM 2020-09-12 01:25:00 Diandra Kilpatrick [facility] PHOSPHORUS 2020-09-12 01:25:00 [facility] LIPID PANEL 2020-09-12 01:25:[address] [facility] COMPREHENSIVE METABOLIC 2020-09-12 01:25:00 [facility] REPORT OF PROCEDURE - 2020-09-11 00:00:00 Provider, Default [facility] ENDOSCOPY SCAN Scanning [facility] Plan of Care Planned Activity Planned Date Details Comments Source Future Scheduled 2020-10-[address] [facility] - Test 00:00:00 (12+) [code = Medical Center DEPRESSION SCREENING (12+)] Future Scheduled 2020-09-11 Medicare IPPE (WELCOME [facility] - Test 00:00:00 TO MEDICARE) [code = Medical Center Medicare IPPE (WELCOME TO MEDICARE)] Future Scheduled 2020-06-29 INFLUENZA VACCINE (#1) [facility] - Test 00:00:00 [code = INFLUENZA Medical Ce nter VACCINE (#1)] Future Scheduled 1997 PNEUMOCOCCAL 65+ YRS [facility] - Test 00:00:00 (1 of 1 - Medical Center [id number] PCV13) [code = PNEUMOCOCCAL 65+ YRS (1 of 1 - [id number] PCV13)] Future Scheduled 1982 SHINGLES VACCINES ([address] [facility] - Test 00:00:00 of 2) [code = SHINGLES Medic al Center VACCINES (1 of 2)] Future Scheduled 1951 DTAP/TDAP/TD VACCINES [facility] - Test 00:00:00 (1 - Tdap) [code = Medical C enter DTAP/TDAP/TD VACCINES (1 - Tdap)] Results Test Description Test Time Test Comments Results Result Comments Source Blood Culture - Routine (Left Venipuncture) 2020-09-17 23:00 :00 Test Item Value Reference Range Interpretation Comme nts Result (test code = 6463-4) No growth in 5 days [facility] [id number] 23:00:00 Test Item Value Reference Range Interpretation Comments CULTURE (BEAKER) (test No growth in 5 days code = 1095) BLOOD [id number] 05:01:00 Test Item Value Reference Range Interpretation Comments CULTURE (BEAKER) (test No growth in 5 days code = 1095) West Nile antibodies (IgG, IgM)2020-09-16 14:44:00 Test Item Value Reference Range Interpretation Comments [place] <1.30 Virus IgG (test code = 0700931) [place] <0.90 REFERENCE RANGE : IgG Virus IgM <1.30 (test code = IgM 9337608) <0.90Interpreti ve Criteria: Ig G: <1.30 Anti body not detected 1.30 - 1.49 Equivocal >1.49 Anti body detected West Nile IgG antibodies are often not detec table untilday 4 or 5 of illness. In a patient who is IgM positivebut IgG negative, a convalescent ph ase specimen obtained7-14 da ys after the initi al specimen should be tested todocume nt IgG seroconversion. Inter pretive Criteri a: IgM: <0 .90 Antibody not detected 0.90 - 1.10 Equivocal >1.10 Anti body detected [place] virus (WNV) IgM is usually detecta ble inserum specime ns from WNV-infect ed patients at the timeof clinical presentation. Because serum I gM antibody mayper sist for more than a year in some patient s, its presencemay indicate WNV infection in e previous year a nd beunrelated to the current clinica l presentation.An tibod ies induced by other flavivirus infections(e.g. Dengue virus, S t. Angel encephali tis virus) mayshow cross-reactivit y with WNV. JONI (test code Performing Lab = JONI) *QDID [employer] [facility] [address] [place] [address] Jerel Hernandez MD [facility] HospitalBasi Metabolic [id number] 07:10:00 Test Item Value Reference Range Interpretation Comments Sodium (test code = 136 meq/L 612-448 7689-2) Potassium (test code = 4.2 meq/L 3.5-5.1 2823-3) Chloride (test code = 103 meq/L 98-107 2075-0) CO2 (test code = 26 meq/L 22-29 2028-9) BUN (test code = 26 mg/dL 7-21 H 3094-0) Creatinine (test code 1.32 mg/dL 0.57-1.25 H = 2160-0) Glucose (test code = 125 mg/dL 70-105 H 2345-7) Calcium (test code = 9.4 mg/dL 8.4-10.2 72705-2) EGFR (test code = 51 mL/min/1.73 [place] [address]-3) NOT ACCURATE CREATININE CLEARANCE IN PREDICTING GLOMERULAR FILTRATION RATE . ESTIMATED GFR I S NOT APPLICABLE FOR DIALYSIS PATIENTS. JONI (test code = JONI) Multifocal Lens Assembler ID - EDASI Lab Interpretation Abnormal (test code = 64409-5) [facility] HospitalMagnesium2020-11-17 07:10:00 Test Item Value Reference Range Interpretation Comments Magnesium (test code = 1.9 mg/dL 1.6-2.6 38075-2) JONI (test code = JONI) Multifocal Lens Assembler ID - EDASI Lab Interpretation (test Normal code = 97137-9) [facility] HospitalPhosphorus2020-11-17 07:10:00 Test Item Value Reference Range Interpretation Comments Phosphorus (test code = 2.9 mg/dL 2.3-4.7 2777-1) JONI (test code = JONI) Multifocal Lens Assembler ID - EDASI Lab Interpretation (test Normal code = 12065-0) [facility] HospitalBASIC METABOLIC [id number] 07:10:00 Test Item Value Reference Range Interpretation [...] S NOT APPLICABLE FOR DIALYSIS PATIEN TS. Multifocal Lens Assembler ID - [id number] 07:10:00 Test Item Value Reference Range Interpretation Comments MAGNESIUM (BEAKER) (test code = 1.9 mg/dL 1.6-2.6 627) Multifocal Lens Assembler ID - [id number] 07:10:00 Test Item Value Reference Range Interpretation Comments PHOSPHORUS (BEAKER) (test code = 2.9 mg/dL 2.3-4.7 604) Multifocal Lens Assembler ID - EDASIECG 12 [id number] 06:30:29Interface, External Ris In - 09/14/2020 6:30 AM CSTVentricular Rate 72 BPMAtrial Rate 72 BPMP-R Interval 244 msQRS Duration 100 msQ-T Interval 386 msQTC Calculation(Bazett) 422 msP [place] 80 degreesR [place] -35 degreesT [place] 54 degreesSinus rhythm with 1st degree A-V block with Premature supraventricularcomplexesLeft axis deviationAnterior infarct , age undeterminedAbnormal ECGNo previous ECGs availableConfirmed by MD BRIAN, DANY Anaya ([id number]) on 09/14/2020 6:30:28 [facility] + automated [id number] 06:14:00 Test Item Value Reference Range Interpretation Comments WBC (test code = 6690-2) 7.4 See_Comment [A utomated message] The system [employer] generated this result transmitted ref erence range: 3.5 - 10 .5 K/L. The refe rence range was not u sed to interpret this result as normal/abnor mal. RBC (test code = 789-8) 3.98 See_Comment L [Au tomated message] The system [employer] generated this result transmitted ref erence range: 4.63 - 6 .08 M/L. The refe rence range was not u sed to interpret this result as normal/abnor mal. MCHC (test code = 786-4) 32.4 See_Comment L [A utomated message] The system [employer] generated this result transmitted ref erence range: 32.3 - 3 6.5 GM/DL. The refe rence range was not u sed to interpret this result as normal/abnor mal. Hematocrit (test code = 38.0 % 40.1-51 L 4544-3) MCV (test code = 787-2) 95.5 fL 79-92.2 H MCH (test code = 785-6) 30.9 pg 25.7-32.2 RDW (test code = 788-0) 13.0 % 11.6-14.4 Platelets (test code = 186 See_Comment [Aut omated message] 307-3) The system [employer] generated this result transmitted ref erence range: 150 - 45 0 K/CU MM. The referen ce range was not u sed to interpret this result as normal/abnor mal. MPV (test code = 10.4 fL 9.4-12.4 54108-8) nRBC (test code = 413) 0 See_Comment [Aut omated message] The system [employer] generated this result transmitted ref erence range: 0 - 0 /1 00 WBC. The refere nce range was not u sed to interpret this result as normal/abnor mal. % Neutros (test code = 64 % 429) % Lymphs (test code = 23 % 430) % Monos (test code = 11 % 431) % Eos (test code = 432) 2 % % Baso (test code = 437) 0 % # Neutros (test code = 4.74 See_Comment [Aut omated message] 670) The system [employer] generated this result transmitted ref erence range: 1.78 - 5 .38 K/L. The refe rence range was not u sed to interpret this result as normal/abnor mal. # Lymphs (test code = 1.68 See_Comment [Auto mated message] 414) The system [employer] generated this result transmitted ref erence range: 1.32 - 3 .57 K/L. The refe rence range was not u sed to interpret this result as normal/abnor mal. # Monos (test code = 0.79 See_Comment [Autom ated message] 415) The system [employer] generated this result transmitted ref erence range: 0.30 - 0 .82 K/L. The refe rence range was not u sed to interpret this result as normal/abnor mal. # Eos (test code = 416) 0.14 See_Comment [Au tomated message] The system [employer] generated this result transmitted ref erence range: 0.04 - 0 .54 K/L. The refe rence range was not u sed to interpret this result as normal/abnor mal. # Baso (test code = 417) 0.01 See_Comment [A utomated message] The system [employer] generated this result transmitted ref erence range: 0.01 - 0 .08 K/L. The refe rence range was not u sed to interpret this result as normal/abnor mal. Immature 1 % 0-1 Granulocytes-Relative (test code = 2801) Lab Interpretation (test Abnormal code = 24391-2) [facility] W/PLT COUNT & AUTO [id number] 06:14:00 Test Item Value Reference Range Interpretation [...] STTransthoracic Echocardiography Report (TTE) Demographics Patient Name SEBASTIAN, Date of Study 09/13/2020 MARLA Gender Male VisitNumber [id number] Race Unknown Room [id number] Number Date of 1930 Referring TEE Anaya Physician AYANNA Age 89 year(s) [place] Operator Grazyna Woody [employer] Jed Brennan Interpreting Dany Wall MD Physician [...] TR Velocity: 2.43 m/s TR Gradient: 23.63 mmHgEast [place] Doctors HospitalRPR2020-11-16 14:45:00 Test Item Value Reference Range Interpretation Comments RPR (test code = 44342-7) Nonreactive Nonreactive Lab Interpretation (test code = Normal 37942-2) [facility] HospitalRPR2020-11-16 14:45:00 Test Item Value Reference Range Interpretation Comments RPR SCREEN (BEAKER) (test code = Nonreactive Nonreactive 420) Urinalysis w/Microscopic + Reflex to [id number] 13:32:00 Test Item Value Reference Range Interpretation Comments Color, UA (test code Yellow = 5778-6) Clarity, UA (test Hazy code = 5767-9) Specific [place], UA 1.036 1.001-1.035 H (test code = 5811-5) pH, UA (test code = 5.5 5.0-8.0 5803-2) Protein, UA (test 100 mg/dL Negative A code = 11104-3) Glucose, UA (test Negative Negative code = 365) Ketones, UA (test Negative Negative code = 2514-8) Bilirubin, UA (test Negative Negative code = 56110-8) Blood, UA (test code Large Negative A = 83688-0) Nitrite, UA (test Negative Negative code = 5802-4) Leukocytes, UA (test Negative Negative code = 5799-2) Urobilinogen, UA 0.2 mg/dL 0.2-1 (test code = 71306-6) RBC, UA (test code = 2 See_Comment [Autom ated 46419-0) message] The system which generated this result transmit miracle reference range : /HPF. The reference range was not used to interpret this result as normal/abnormal . WBC, UA (test code = 4 See_Comment [Autom ated 5821-4) message] The system which generated this result transmit miracle reference range : /HPF. The reference range was not used to interpret this result as normal/abnormal . Mucus (test code = Few 8247-9) Squam Epithel, UA <1 See_Comment [Automate d (test code = 07251-2) messag e] The system which generated this result transmit miracle reference range : /HPF. The reference range was not used to interpret this result as normal/abnormal . Hyaline Casts, UA 4 See_Comment [Automate d (test code = 48688-2) messag e] The system which generated this result transmit miracle reference range : /LPF. The reference range was not used to interpret this result as normal/abnormal . Specimen Source (test code = 2795) JONI (test code = JONI) Multifocal Lens Assembler ID - [auto]Multifocal Lens Assembler ID - tech Lab Interpretation Abnormal (test code = 11677-6) [facility]IS W/ REFLEX URINE [id number] 13:32:00 Test Item Value Reference Range Interpretation [...] /LPF 514) SOURCE(BEAKER) (test code = 2795) Multifocal Lens Assembler ID - [auto]Multifocal Lens Assembler ID - techC-Reactive [id number] 13:21:00 Test Item Value Reference Range Interpretation Comments CRP (test code = 676) 14.49 mg/dL 0-0.5 H JONI (test code = JONI) Multifocal Lens Assembler ID - EDASI Lab Interpretation (test Abnormal code = 64298-4) [facility] HospitalC-REACTIVE [id number] 13:21:00 Test Item Value Reference Range Interpretation Comments C-REACTIVE PROTEIN (BEAKER) (test 14.49 mg/dL 0.00-0.50 H code = 676) Multifocal Lens Assembler ID - [id number] 13:03:00 Test Item Value Reference Range Interpretation Comments Procalcitonin (test code = 2.15 ng/mL <0.05 H 48711-4) JONI (test code = JONI) SEPSIS RISK (ng/mL)Low: 0.05-0.50Intermedi ate: 0.51-2.00High: >=2.01 Lab Interpretation (test Abnormal code = 15256-8) [facility] HospitalPROCALCITONIN2020-11-16 13:03:00 Test Item Value Reference Range Interpretation Comments PROCALCITONIN (BEAKER) (test code 2.15 ng/mL <0.05 H = 3036) SEPSIS RISK (ng/mL)Low: 0.05-0.50Intermediate: 0.51-2.00High: >=2.01Creatine Kinase (CK)2020-09-13 11:55:00 Test Item Value Reference Range Interpretation Comments Total CK (test code = 5809 U/L 29-200 H 2157-6) JONI (test code = JONI) Multifocal Lens Assembler ID - EDASIOperator ID - EDASI Lab Interpretation Abnormal (test code = 64105-9) [facility] HospitalCREATINE KINASE (CK)2020-09-13 11:55:00 Test Item Value Reference Range Interpretation Comments CREATINE KINASE TOTAL (BEAKER) (test 5809 U/L 29-200 H code = 380) Multifocal Lens Assembler ID - EDASIOperator ID - EDASIVancomycin level, [id number] 11:22:00 Test Item Value Reference Range Interpretation Comments Vancomycin Rm (test 4.0 ug/mL code = 86111-0) JONI (test code = Reference Range: No JONI) NormalsOperator ID - EDASI [facility] HospitalVANCOMYCIN LEVEL, [id number] 11:22:00 Test Item Value Reference Range Interpretation Comments VANCOMYCIN RANDOM (BEAKER) (test 4.0 ug/mL code = 523) Reference Range: No NormalsOperator ID - EDASITroponin [id number] 11:11:00 Test Item Value Reference Range Interpretation Comments Troponin I (test code = 0.05 ng/mL 0-0.03 H 01360-3) JONI (test code = JONI) Troponin I [...] EDASI Lab Interpretation (test Abnormal code = 11969-9) [facility] HospitalTROPONIN [id number] 11:11:00 Test Item Value Reference Range Interpretation [...] failure, acidosis, acute neurological disease, and persistent tachyarrhythmia.Multifocal Lens Assembler ID - EDASIHemoglobin A1c 2020-09-13 08:03:00 Test Item Value Reference Range Interpretation Comments Hemoglobin A1C (test code = 4548-4) 5.5 % 4.3-6.1 Lab Interpretation (test code = Normal 08220-2) [facility] HospitalHEMOGLOBIN [id number] 08:03:00 Test Item Value Reference Range Interpretation Comments HEMOGLOBIN A1C (BEAKER) (test code = 5.5 % 4.3-6.1 368) BASIC METABOLIC [id number] 07:30:00 Test Item Value Reference Range Interpretation [...] S NOT APPLICABLE FOR DIALYSIS PATIEN TS. Multifocal Lens Assembler ID - [id number] 07:30:00 Test Item Value Reference Range Interpretation Comments MAGNESIUM (BEAKER) (test code = 2.2 mg/dL 1.6-2.6 627) Multifocal Lens Assembler ID - [id number] 07:30:00 Test Item Value Reference Range Interpretation Comments PHOSPHORUS (BEAKER) (test code = 2.2 mg/dL 2.3-4.7 L 604) Multifocal Lens Assembler ID - EDASITROPONIN [id number] 05:50:00 Test Item Value Reference Range Interpretation [...] failure, acidosis, acute neurological disease, and persistent tachyarrhythmia.Multifocal Lens Assembler ID - EDASICBC W/PLT COUNT & AUTO [id number] 05:28:00 Test Item Value Reference Range Interpretation [...] PERCENT (BEAKER) (test code = 2801) TROPONIN [id number] 23:01:00 Test Item Value Reference Range Interpretation [...] failure, acidosis, acute neurological disease, and persistent tachyarrhythmia.Multifocal Lens Assembler ID - EDASIBASIC METABOLIC PANEL 2020-09-12 22:54:00 [...] S NOT APPLICABLE FOR DIALYSIS PATIEN TS. Multifocal Lens Assembler ID - [id number] 22:54:00 Test Item Value Reference Range Interpretation Comments MAGNESIUM (BEAKER) (test code = 1.8 mg/dL 1.6-2.6 627) Multifocal Lens Assembler ID - [id number] 22:54:00 Test Item Value Reference Range Interpretation Comments PHOSPHORUS (BEAKER) (test code = 2.4 mg/dL 2.3-4.7 604) Multifocal Lens Assembler ID - EDASIMR, BRAIN, WITHOUT [id number] 22:50:00Unlisted Reason for Exam - Click Yes and Enter Reason Below->No [facility] : 1930 Sex: MFINAL REPORT [...] Angel Caceres MDReport Verified Date/Time: 09/12/2020 22:50:10 MR brain without IV [id number] 22:50:00Interface, External Ris In - 09/12/2020 10:52 [...] infarct, hemorrhage or mass effect. Signed: Angel Caceresort Verified Date/Time: 09/12/2020 22:50:10 [facility] CenterCalcium, [id number] 22:35:00 Test Item Value Reference Range Interpretation Comments Calcium, Ion (test code = 1994-3) 1.13 mmol/L 1.12-1.27 pH, Blood (test code = 55977-4) 7.44 [facility] CenterCALCIUM, [id number] 22:35:00 Test Item Value Reference Range Interpretation Comments CALCIUM IONIZED (BEAKER) (test 1.13 mmol/L 1.12-1.27 code = 698) PH, BLOOD (BEAKER) (test code = 7.44 1810) Respiratory Panel [id number] 18:24:00 Test Item Value Reference Range Interpretation Comments Human Metapneumovirus Not detected Not detected, (test code = 61158-4) Equivocal Rhinovirus (test code = Not detected Not detected, 52791-6) Equivocal INFLUENZA A (NO Not detected Not detected, SUBTYPE) (test code = Equivocal 36458-6) Influenza A subtype H1 (test code = 48972-3) Influenza A Subtype H3 (test code = 47703-4) Influenza A Subtype H1-2009 (test code = 04008-0) Influenza B (test code Not detected Not detected, = 13024-6) Equivocal Respiratory Syncytial Not detected Not detected, Virus (test code = Equivocal 75768-0) Parainfluenza Virus 1 Not detected Not detected, (test code = 07957-5) Equivocal Parainfluenza Virus 2 Not detected Not detected, (test code = 88509-5) Equivocal Parainfluenza virus 3 Not detected Not detected, (test code = 58275-6) Equivocal Parainfluenza Virus 4 Not detected Not detected, (test code = 51139-6) Equivocal Adenovirus (test code = Not detected Not detected, 46480-1) Equivocal Coronavirus 229E (test Not detected Not detected, code = 69519-4) Equivocal Coronavirus HKU1 (test Not detected Not detected, code = 14068-1) Equivocal Coronavirus NL63 (test Not detected Not detected, code = 68796-5) Equivocal Coronavirus OC43 (test Not detected Not detected, code = 09316-3) Equivocal Bordetella Pertussis Not detected Not detected, (test code = 57889-8) Equivocal Chlamydophila Not detected Not detected, Pneumoniae (test code = Equivocal 72335-2) Mycoplasma Pneumoniae Not detected Not detected, (test code = 07420-9) Equivocal JONI (test code = JONI) Other viruses and bacteria not targeted by this PCR panel cannot be excluded; therefore clinical correlation and follow up of serology, culture results, and other molecular studies is required. The results are not intended to be used as the sole means for clinical diagnosis or patient management decisions. This sample was tested at the [facility] using the [employer] Respiratory Panel. It is FDA cleared and has been verified and approved by the [facility] for clinical use on nasopharyngeal swab specimens. The performance of the KakaMobiArray RP has not been established in individuals who received influenza vaccine. Recent administration of a nasal influenza vaccine may cause false positive results for Influenza A and/orInfluenza B. [facility] CenterRESPIRATORY PANEL [id number] 18:24:00 Test Item Value Reference Range Interpretation [...] decisions. This sample was tested at the [facility] using the [employer] FilmArray Respiratory Panel. It is FDA cleared and has been verified and approved by the [facility] for clinical use on nasopharyngeal swab specimens.The performance of the FilmArrayRP has not been established in individuals who received influenza vaccine. Recent administration ofa nasal influenza vaccine may cause false positive results for Influenza A and/orInfluenza B.SARS-CoV2/RT-PCR (Asymptomatic ONLY)2020-09-12 17:01:00 Test Item Value Reference Range Interpretation Comments SARS-COV2/RT-PCR Negative Not Detected, (test code = Negative, See 39188-5) external report for linked test SARS-COV-2 [facility] PERFORMING LAB (test code = 28860-9) JONI (test code = Negative results do [...] of the Act. Fact Sheet for Healthcare Providers:https://www.Virtuix.CivicSolar/Documents/Xper t%20Xpress%20SARS%20CoV- 2/Fact%20Sheets/302-6475 %29MSYV-PEO-0%20HEALTHCA RE%20PROVIDERS%20FACT%20 SHEET.pdf Fact Sheet for Healthcare Patients:https://www.Tweetminster/Documents/Xpert %20Xpress%20SARS%20CoV-2 /Fact%20Sheets/302-3801% 77OFBC-FAD-3%20PATIENT%2 0FACT%20SHEET.pdf Performing Laboratory:[facility] [place] [address] [facility])2020-09-12 17:01:00 Test Item Value Reference Range Interpretation Comments SARS-COV2/RT-PCR (test code Negative Not Detected, Negative, = 3368478) See external report for linked test SARS-COV-2 PERFORMING LAB [facility] (test code = 0316344) Negative results do not preclude SARS-CoV-2 infection [...] of the Act.Fact Sheet for Healthcare Pro viders:https://www.PingSome.CivicSolar/Documents/Xpert%20Xpress%20SARS%20CoV-2/Fact%20Sh eets/3023802%03LBJV-OTG-8%20HEALTHCARE%20PROVIDERS%20FACT%20SHEET.pdfFact Sheet for Healthcare Patients:https://www.Aveksa.com/Documents/Xpert%20Xpress%20SARS%20CoV-2/Fact%20Sheets/3023801%20SARS-COV -2%20PATIENT%20FACT%20SHEET.pdfPerforming Laboratory:[facility], [place] [address]Hahlj Influenza A&B [id number] 16:07:00 Test Item Value Reference Range Interpretation Comments Rapid Influenza A Antigen Negative Negative, Inconclusive (test code = 58365-4) Rapid influenza B Antigen Negative Negative, Inconclusive (test code = 22253-9) Lab Interpretation (test code Normal = 39797-9) [facility] HospitalR[facility] INFLUENZA A&B [id number] 16:07:00 Test Item Value Reference Range Interpretation Comments RAPID INFLUENZA A AG (BEAKER) Negative Negative, Inconclusive (test code = 1622) RAPID INFLUENZA B AG (BEAKER) Negative Negative, Inconclusive (test code = 1623) RAD, CHEST, 1 VIEW, NON [id number] 11:52:00Reason for exam:->FEVER of unknown originShould this be performed at the bedside?->Yes [facility] 1930 Sex: MFINAL REPORT [...] 11:52:04 XR chest 1 view portable / [id number] 11:52:00Interface, External Ris In - 09/12/2020 11:54 [...] Signed: Hank Mar Verified Date/Time: 09/12/2020 11:52:04 [facility]PROC[facility] 2020-09-12 07:31:00 Test Item Value Reference Range Interpretation Comments PROCALCITONIN (BEAKER) (test code 4.04 ng/mL <0.05 H = 3036) SEPSIS RISK (ng/mL)Low: 0.05-0.50Intermediate: 0.51-2.00High: >=2.01Vitamin B12 and [id number] 07:08:00 Test Item Value Reference Range Interpretation Comments Vitamin B12 (test 278 pg/mL 213-816 code = 2132-9) Folate (test code = 26.60 ng/mL See_Comment [Automa miracle 2284-8) message] The system which generated this result transmitted reference range : >=7.00. The reference range was not used to interpret this result as normal/abnormal . JONI (test code = Multifocal Lens Assembler ID - JONI) EDASIOperator ID - EDASI Lab Interpretation Normal (test code = 20211-2) [facility] HospitalVITAMIN B12 AND [id number] 07:08:00 Test Item Value Reference Range Interpretation Comments VITAMIN B12 (BEAKER) (test code = 278 pg/mL 213-816 774) FOLATE (BEAKER) (test code = 362) 26.60 ng/mL >=7.00 Multifocal Lens Assembler ID - EDASIOperator ID - EDASITSH/Free T4 If [id number] 07:06:00 Test Item Value Reference Range Interpretation Comments TSH (test code = 0.555 See_Comment [Automated 46927-6) message] The system which generated this result transmit miracle reference range : 0.350 - 4.940 uIU/mL. The reference range was not used to interpret this result as normal/abnormal . JONI (test code = JONI) Multifocal Lens Assembler ID - EDASI Lab Interpretation Normal (test code = 14076-2) [facility] HospitalTSH/FREE T4 IF [id number] 07:06:00 Test Item Value Reference Range Interpretation Comments THYROID STIMULATING HORMONE 0.555 uIU/mL 0.350-4.940 (BEAKER) (test code = 772) Multifocal Lens Assembler ID - EDASIVANCOMYCIN LEVEL, [id number] 06:08:00 Test Item Value Reference Range Interpretation Comments VANCOMYCIN RANDOM (BEAKER) (test 5.3 ug/mL code = 523) Reference Range: No NormalsOperator ID - EDASIHepatic function [id number] 05:22:00 Test Item Value Reference Range Interpretation Comments Protein, Total (test 6.4 See_Comment [Autom ated code = 2885-2) message] The system which generated this result transmit miracle reference range : 6.0 - 8.3 gm/dL . The reference range was not u sed to interpret th is result as normal/abnormal . Albumin (test code = 3.6 g/dL 3.5-5 46681-8) Total Bilirubin (test 0.6 mg/dL 0.2-1.2 code = 1975-2) Bilirubin, Direct 0.4 mg/dL 0.1-0.5 (test code = 1968-7) Alkaline Phosphatase 44 U/L 40-150 (test code = 6768-6) AST (test code = 139 U/L 5-34 H 1920-8) ALT (test code = 33 U/L 6-55 1742-6) JONI (test code = JONI) Multifocal Lens Assembler ID - EDASI Lab Interpretation Abnormal (test code = 35790-3) [facility] HospitalHEPATIC FUNCTION [id number] 05:22:00 Test Item Value Reference Range Interpretation [...] (test code = 33 U/L 6-55 347) Multifocal Lens Assembler ID - KEAGANRENAYProthrombin time/[id number] 04:51:00 Test Item Value Reference Interpretation Comments Range Protime (test code = 15.6 See_Comment H [Autom ated 5902-2) message] The system which generated this result transmitted reference range : 11.9 - 14.2 seconds. The reference range was not used to interpret this result as normal/abnormal . INR (test code = 1.28 See_Comment [Automated 6301-6) message] The system which generated this result transmitted reference range : <=5.90. The reference range was not used to interpret this result as normal/abnormal . JONI (test code = Effective 03/26/2019: JONI) PT Reference Range ChangeNew: 11.9-14.2 Previous: 11.7-14.7 RECOMMENDED COUMADIN/WARFARIN INR THERAPY RANGESSTANDARD DOSE: 2.0-3.0 Includes: PROPHYLAXIS for venous thrombosis, systemic embolization; TREATMENT for venous thrombosis and/or pulmonary embolus.HIGH RISK: Target INR is 2.5-3.5 for patients wiht mechanical heart valves. Lab Interpretation Abnormal (test code = 04822-9) [facility] HospitalPROTHROMBIN TIME/[id number] 04:51:00 Test Item Value Reference Range Interpretation [...] Range Interpretation Comments Protein, Total (test 6.4 See_Comment [Autom ated code = 2885-2) message] The system which generated this result transmit miracle reference range : 6.0 - 8.3 gm/dL . The reference range was not u sed to interpret th is result as normal/abnormal . Albumin (test code = 3.6 g/dL 3.5-5 87858-9) Alkaline Phosphatase 46 U/L 40-150 (test code = 6768-6) Total Bilirubin (test 0.7 mg/dL 0.2-1.2 code = 1975-2) Sodium (test code = 137 meq/L 074-073 8400-2) Potassium (test code 3.9 meq/L 3.5-5.1 = 2823-3) Chloride (test code = 103 meq/L 98-107 5-0) CO2 (test code = 26 meq/L -29 2027-9) BUN (test code = 24 mg/dL 7-21 H 3094-0) Creatinine (test code 1.38 mg/dL 0.57-1.25 H = 2160-0) Glucose (test code = 136 mg/dL 70-105 H 2345-7) Calcium (test code = 8.8 mg/dL 8.4-10.2 08124-9) AST (test code = 122 U/L 5-34 H 1920-8) ALT (test code = 31 U/L 6-55 1742-6) EGFR (test code = 49 mL/min/1.73 [place] [address]-4) NOT ACCURATE CREATININE CLEARANCE IN PREDICTING GLOMERULAR FILTRATION RATE . ESTIMATED GFR I S NOT APPLICABLE FOR DIALYSIS PATIEN JONI (test code = JONI) Multifocal Lens Assembler ID - AIDEN Lab Interpretation Abnormal (test code = 66948-4) [facility] HospitalFasting lipid [id number] 02:17:00 Test Item Value Reference Range Interpretation Comments Triglycerides (test 54 mg/dL code = 2571-8) Cholesterol (test code 141 mg/dL = 2093-3) HDL (test code = 44 mg/dL 5-9) LDL Calculated (test 86 mg/dL code = 17930-2) JONI (test code = JONI) Triglyceride Reference Range: Low Risk <150 Borderline 150-199 High Risk 200-499 Very High Risk >=500 Cholesterol Reference Range: Low Risk <200 Borderline 200-239 High Risk >240 HDL Cholesterol Reference Range: Low Risk >=60 High Risk <40 LDL Cholesterol Reference Range: Optimal <100 Near Optimal 100-129 Borderline 130-159 High 160-189 Very High >=190 Multifocal Lens Assembler ID - EDASI [facility] HospitalCOMPREHENSIVE METABOLIC [id number] 02:17:00 Test Item Value Reference Range Interpretation [...] S NOT APPLICABLE FOR DIALYSIS PATIEN TS. Multifocal Lens Assembler ID - [id number] 02:17:00 Test Item Value Reference Range Interpretation Comments MAGNESIUM (BEAKER) (test code = 1.7 mg/dL 1.6-2.6 627) Multifocal Lens Assembler ID - [id number] 02:17:00 Test Item Value Reference Range Interpretation Comments PHOSPHORUS (BEAKER) (test code = 4.1 mg/dL 2.3-4.7 604) Multifocal Lens Assembler ID - EDASILIPID [id number] 02:17:00 Test Item Value Reference Range Interpretation [...] Borderline 130-159 High 160-189 Very High >=190 Multifocal Lens Assembler ID - EDASILactic acid, [id number] 02:03:00 Test Item Value Reference Range Interpretation Comments Lactate, Venous (test code 1.01 mmol/L 0.5-2.2 = 2872) JONI (test code = JONI) Multifocal Lens Assembler ID - EDASI Lab Interpretation (test Normal code = 24109-6) [facility] CenterLACTIC ACID, [id number] 02:03:00 Test Item Value Reference Range Interpretation Comments LACTATE BLOOD VENOUS (2) (BEAKER) 1.01 mmol/L 0.50-2.20 (test code = 2872) Multifocal Lens Assembler ID - EDASICBC W/PLT COUNT & AUTO [id number] 01:50:00 Test Item Value Reference Range Interpretation [...] 0-1 PERCENT (BEAKER) (test code = 2801) [id number] 00:00:00Ordered by an unspecified provider.[facility]
[2021-01-24] MEDS ORDERED: ACETAMINOPHEN 500 MG TAB ONE (19:58)
--- NOTE | 2021-01-24 20:12 | RAD REPORT ---
EXAM DESCRIPTION: RAD - Chest Single View - 01/24/2021 7:43 pm CLINICAL HISTORY: fall Chest pain. COMPARISON: Chest Single View dated 09/15/2020; Chest Single View dated 09/11/2020; Chest Single Vie w dated 06/15/2018; Chest Single View dated 04/07/2018 FINDINGS: Portable technique limits examination quality. The lungs are grossly clear. The heart is normal in size. No displaced fractures. IMPRESSION: No acute intrathoracic process suspected.
--- NOTE | 2021-01-24 20:21 | RAD REPORT ---
EXAM DESCRIPTION: CT - CTHCSPWOC - 01/24/2021 8:10 pm CLINICAL HISTORY: Trauma, head and neck injury. poss fall COMPARISON: No comparisons TECHNIQUE: Axial 5 mm thick images of the head were obtained. Axial 2 mm thick images of the cervical spine were obtained with sagittal and coronal reconstruction images generated and reviewed. All CT scans are performed using dose optimization technique as appropriate and may include automated exposure control or mA/KV adjustment according to patient size. FINDINGS: CT HEAD WITHOUT CONTRAST: No acute hemorrhage, hydrocephalus or extra-axial collection is identified.Mild to moderate generaliz ed brain atrophy.No areas of brain edema or midline shift. The paranasal sinuses and mastoids are clear.The calvarium is intact. CT CERVICAL SPINE WITHOUT CONTRAST: No fracture or subluxation.Mild cervical degenerative changes are present.No prevertebral soft tissue s swelling is identified. IMPRESSION: No acute intracranial or cervical spine findings.
--- NOTE | 2021-01-24 20:49 | ER ---
Nurse's Notes [facility] Name: Stefan Lake Age: 89 yrs Sex: Male : 1930 Arrival Date: 01/24/2021 Time: 19:25 Bed 4 Private MD: Diagnosis: Cellulitis of right lower limb Presentation: 01/24 19:25 Chief complaint: EMS states: found on the floor fell down, complaining of rr5 weakness,confused. last seen normal 5 PM. no facial droop, no slurring of speech. T 100 BS 149 mg/dl. on blood thinner. 19:25 Coronavirus screen: Client denies travel out of the [place] in the last 14 days. At this rr5 time, the client does not indicate any symptoms associated with coronavirus-19. Ebola Screen: Patient negative for fever greater than or equal to 101.5 degrees Fahrenheit, and additional compatible Ebola Virus Disease symptoms Patient denies exposure to infectious person. Patient denies travel to an Ebola-affected area in the 21 days before illness onset. Initial Sepsis Screen: Does the patient meet any 2 criteria? Temp <36.0*C (96.8*F)) or > 38.3*C (100.9*F). Does the patient have a suspected source of infection? Yes: Skin breakdown/wound. Risk Assessment: Do you want to hurt yourself or someone else? Patient reports no desire to harm self or others. Note Son at bedside stated patient found sitting on the floor. did not fall he complaints of general weakness. Onset of symptoms was January 24, 2021. 19:25 Method Of Arrival: EMS: [facility] rr5 19:25 Acuity: SARAH 2 rr5 Historical: - Allergies: 20:10 NKA; rr5 - Home Meds: 20:10 levothyroxine 50 mcg tab 1 tab once daily [Active]; Eliquis oral oral [Active]; rr5 Metoprolol Tartrate Oral [Active]; Omeprazole Oral [Active]; prevagen es [Active]; - PMHx: 20:10 Dementia; Hypothyroidism; rr5 20:30 Hypertension; blood clot right leg; rr5 - Immunization history:: Adult Immunizations up to date. - Social history:: Smoking status: unknown. Screenin:40 Abuse screen: Denies threats or abuse. Denies injuries from another. Nutritional rr5 screening: No deficits noted. Tuberculosis screening: No symptoms or risk factors identified. Fall Risk Secondary diagnosis (15 points) dementia, IV access (20 points). Mental Status- Overestimates/Forgets Limitations (15 pts.). Total Moss Fall Scale indicates High Risk Score (45 or more points). Fall prevention measures have been instituted. Side Rails Up X 2 Placed Close to Nursing Station Frequent Obs/Assessments Occuring As available patient and family educated on Fall Prevention Program and Strategies. Assessment: 19:30 General: Appears in no apparent distress. comfortable, Behavior is calm, cooperative. rr5 19:30 Pain: Denies pain. Neuro: Level of Consciousness is awake, alert, obeys commands, rr5 Oriented to person, place. Cardiovascular: Capillary refill < 3 seconds Patient's skin is warm and dry. Respiratory: Airway is patent Respiratory effort is even, unlabored, Respiratory pattern is regular, symmetrical. GI: No signs and/or symptoms were reported involving the gastrointestinal system. : No signs and/or symptoms were reported regarding the genitourinary system. EENT: No signs and/or symptoms were reported regarding the EENT system. Derm: Skin temperature is warm right lower leg warm to touch redness and swelling noted. 21:47 Reassessment: Patient appears in no apparent distress at this time. Patient and/or 5 family updated on plan of care and expected duration. Pain level reassessed. resting eyes closed breathing spontaneously at room air. 22:45 Reassessment: Patient appears in no apparent distress at this time. Patient and/or rr5 family updated on plan of care and expected duration. Pain level reassessed. awaiting for in patient orders. 23:58 Reassessment: Patient appears in no apparent distress at this time. for transfer to [facility] room 211. Vital Signs: 19:25 BP 138 / 70; Pulse 93; Resp 17; Temp 101.4; Pulse Ox 93% ; Weight 83.91 kg; Height 5 5 ft. 9 in. (175.26 cm); Pain 0/10; 20:30 BP 110 / 75; Pulse 90; Resp 17; Pulse Ox 98% ; rr5 21:46 BP 93 / 60; Pulse 95; Resp 16; Temp 99.1; Pulse Ox 96% ; rr5 22:54 BP 95 / 59; Pulse 92; Resp 19; Pulse Ox 94% on R/A; ea 23:46 BP 105 / 73; Pulse 95; Resp 17; Pulse Ox 95% ; rr5 23:52 BP 105 / 73; Pulse 88; Resp 20; Pulse Ox 95% ; ea 19:25 Body Mass Index 27.32 (83.91 kg, 175.26 cm) rr5 ED Course: 19:25 Patient arrived in ED. tw4 19:25 Armando Adams MD is Attending Physician. tw4 19:25 Arm band placed on right wrist. rr5 19:25 Patient has correct armband on for positive identification. Placed in gown. Bed in low rr5 position. Call light in reach. Side rails up X2. campus monitor on. Pulse ox on. NIBP on. 19:30 EKG done, by ED staff, reviewed by Armando Adams MD. rr5 19:34 Alessandro Garcia, FABIOLA is Primary Nurse. rr5 19:40 Inserted saline lock: 20 gauge in right forearm, using aseptic technique. rr5 19:43 XRAY Chest (1 view) In Process Unspecified. EDMS 20:00 Inserted saline lock: 22 gauge in left hand, using aseptic technique. rr5 20:08 Triage completed. rr5 20:10 CT Head C Spine In Process Unspecified. EDMS 20:48 Yuko Heart MD is Hospitalizing Provider. tw4 21:43 Extremity Venous Uni Ltd US In Process Unspecified. EDMS 21:47 COVID swab sent to lab. rr5 22:55 No provider procedures requiring assistance completed. Patient admitted, IV remains in ea place. 23:35 Notified ED physician of a critical lab result(s). BANDS 23. rr5 Administered Medications: 19:35 Drug: Tylenol 1000 mg Route: PO; rr5 23:47 Follow up: Response: No adverse reaction ea 21:35 Drug: Zosyn 3.375 grams Route: IVPB; Infused Over: 60 mins; Site: right forearm; rr5 22:09 Follow up: Response: No adverse reaction; IV Status: Completed infusion; IV Intake: ea 100ml 22:12 Drug: vancoMYCIN 1 grams Route: IVPB; Infused Over: 2 hrs; Site: right antecubital; ea 23:47 Follow up: Response: No adverse reaction; IV Status: Completed infusion; IV Intake: rr5 250ml Intake: 22:09 IV: 100ml; Total: 100ml. ea 23:47 IV: 250ml; Total: 350ml. rr5 Outcome: 20:48 Decision to Hospitalize by Provider. tw4 22:55 Instructed on the need for admit. ea 23:53 Admitted to Med/surg accompanied by tech, via stretcher, room 211, with chart, Report ea called to Receiving nurse on second floor 23:53 Condition: stable 23:59 Patient left the ED. rr5 Signatures: Dispatcher [employer] EDMS Rachana Clark, RN RN Armando Patel MD MD tw4 Alessanrdo Garcia RN RN rr5
--- NOTE | 2021-01-24 20:49 | EDPHYS ---
Physician Documentation [facility] Name: Stefan Lake Age: 89 yrs Sex: Male : 1930 Arrival Date: 01/24/2021 Time: 19:25 Bed 4 Private MD: ED Physician Armando Adams HPI: 01/25 05:33 This 89 yrs old Male presents to ER via EMS with complaints of General tw4 Weakness. 05:33 The patient presents with generalized weakness. Onset: The symptoms/episode tw4 began/occurred today. Context: occurred at home. Modifying factors: The symptoms are alleviated by nothing, the symptoms are aggravated by nothing. Associated signs and symptoms: The patient has no apparent associated signs or symptoms. Severity of symptoms: At their worst the symptoms were moderate in the emergency department the symptoms are unchanged. Patient's baseline: Neuro: alert and fully oriented, Motor: no deficits, Ambulation:. The patient has not experienced similar symptoms in the past. Historical: - Allergies: 01/24 20:10 NKA; rr5 - Home Meds: 20:10 levothyroxine 50 mcg tab 1 tab once daily [Active]; Eliquis oral oral [Active]; rr5 Metoprolol Tartrate Oral [Active]; Omeprazole Oral [Active]; prevagen es [Active]; - PMHx: 20:10 Dementia; Hypothyroidism; rr5 20:30 Hypertension; blood clot right leg; rr5 - Immunization history:: Adult Immunizations up to date. - Social history:: Smoking status: unknown. ROS: 01/25 05:33 Constitutional: Negative for fever, chills, and weight loss, Eyes: Negative for injury, tw4 pain, redness, and discharge, Cardiovascular: Negative for chest pain, palpitations, and edema, Respiratory: Negative for shortness of breath, cough, wheezing, and pleuritic chest pain, Abdomen/GI: Negative for abdominal pain, nausea, vomiting, diarrhea, and constipation, Back: Negative for injury and pain, MS/Extremity: Negative for injury and deformity, Skin: Negative for injury, rash, and discoloration. Neuro: Positive for weakness. Exam: 05:33 Constitutional: This is a well developed, well nourished patient who is awake, alert, tw4 and in no acute distress. Head/Face: Normocephalic, atraumatic. Chest/axilla: Normal chest wall appearance and motion. Nontender with no deformity. No lesions are appreciated. Cardiovascular: Regular rate and rhythm with a normal S1 and S2. No gallops, murmurs, or rubs. Normal PMI, no JVD. No pulse deficits. Respiratory: Lungs have equal breath sounds bilaterally, clear to auscultation and percussion. No rales, rhonchi or wheezes noted. No increased work of breathing, no retractions or nasal flaring. Abdomen/GI: Soft, non-tender, with normal bowel sounds. No distension or tympany. No guarding or rebound. No evidence of tenderness throughout. Skin: Warm, dry with normal turgor. Normal color with no rashes, no lesions, and no evidence of cellulitis. 05:33 Musculoskeletal/extremity: Extremities: noted in the right quadriceps, right knee and right marr: pain, swelling, tenderness. Vital Signs: 01/24 19:25 BP 138 / 70; Pulse 93; Resp 17; Temp 101.4; Pulse Ox 93% ; Weight 83.91 kg; Height 5 rr5 ft. 9 in. (175.26 cm); Pain 0/10; 20:30 BP 110 / 75; Pulse 90; Resp 17; Pulse Ox 98% ; rr5 21:46 BP 93 / 60; Pulse 95; Resp 16; Temp 99.1; Pulse Ox 96% ; rr5 22:54 BP 95 / 59; Pulse 92; Resp 19; Pulse Ox 94% on R/A; ea 23:46 BP 105 / 73; Pulse 95; Resp 17; Pulse Ox 95% ; rr5 23:52 BP 105 / 73; Pulse 88; Resp 20; Pulse Ox 95% ; ea 19:25 Body Mass Index 27.32 (83.91 kg, 175.26 cm) rr5 MDM: 20:48 Patient medically screened. tw4 01/25 05:49 Differential diagnosis: cardiac arrhythmia, CVA, generalized weakness, GI bleed, head tw4 injury. Data reviewed: vital signs, nurses notes. Data interpreted: Pulse oximetry: is not applicable for this patient encounter. Test interpretation: by ED physician or midlevel provider: plain radiologic studies. Counseling: I had a detailed discussion with the patient and/or guardian regarding: the historical points, exam findings, and any diagnostic results supporting the discharge/admit diagnosis. Physician consultation: [facility] MD regarding admission, to the telemetry unit. and will see patient in inpatient room. 01/24 19:28 Order name: Basic Metabolic Panel tw01/24 19:28 Order name: CBC with Diff 01/24 19:28 Order name: LFT's 01/24 19:28 Order name: Magnesium tw01/24 19:28 Order name: NT PRO-BNP; Complete Time: 22:41 tw4 01/24 19:28 Order name: PT-INR; Complete Time: 22:41 tw4 01/24 19:28 Order name: Troponin (emerg Dept Use Only); Complete Time: 22:41 tw4 01/24 19:29 Order name: Basic Metabolic Panel; Complete Time: 22:41 EDMS 01/24 19:29 Order name: CBC with Automated Diff EDMS 01/24 19:30 Order name: Liver (Hepatic) Function; Complete Time: 22:41 EDMS 01/24 19:30 Order name: Magnesium; Complete Time: 22:41 EDMS 01/24 20:15 Order name: Glucose, Ancillary Testing; Complete Time: 22:41 EDMS 01/24 20:41 Order name: Blood Culture Adult (2) 01/24 20:41 Order name: Lactate; Complete Time: 22:41 tw4 01/24 19:28 Order name: XRAY Chest (1 view); Complete Time: 22:41 4 01/24 19:28 Order name: EKG; Complete Time: 19:30 01/24 19:28 Order name: Cardiac monitoring; Complete Time: 20:04 01/24 19:28 Order name: EKG - Nurse/Tech; Complete Time: 20:05 4 01/24 19:28 Order name: CT Head C Spine; Complete Time: 22:41 tw4 01/24 20:45 Order name: Extremity Venous Uni Ltd US tw01/24 21:07 Order name: Manual Differential EDMS 01/24 22:43 Order name: SARS-COV-2 RT PCR EDMS 01/24 23:23 Order name: Basic Metabolic Panel EDMS 01/24 23:23 Order name: Basic Metabolic Panel EDMS 01/24 23:23 Order name: CBC with Automated Diff EDMS 01/24 23:23 Order name: CBC with Automated Diff EDMS 01/24 19:28 Order name: IV Saline Lock; Complete Time: 20:05 tw4 01/24 19:28 Order name: Labs collected and sent; Complete Time: 20:05 tw4 01/24 19:28 Order name: O2 Per Protocol; Complete Time: 20:05 tw4 01/24 19:28 Order name: O2 Sat Monitoring; Complete Time: 20:05 tw4 EC: Rate is 104 beats/min. Rhythm is regular, Sinus tachycardia. QRS [place] is Normal. [place] tw4 interval is prolonged. QT interval is normal. No Q waves. T waves are Normal. No ST changes noted. Clinical impression: 1st degree heart block. Interpreted by me. Reviewed by me. Administered Medications: 01/24 19:35 Drug: Tylenol 1000 mg Route: PO; rr5 23:47 Follow up: Response: No adverse reaction ea 21:35 Drug: Zosyn 3.375 grams Route: IVPB; Infused Over: 60 mins; Site: right forearm; rr5 22:09 Follow up: Response: No adverse reaction; IV Status: Completed infusion; IV Intake: ea 100ml 22:12 Drug: vancoMYCIN 1 grams Route: IVPB; Infused Over: 2 hrs; Site: right antecubital; ea 23:47 Follow up: Response: No adverse reaction; IV Status: Completed infusion; IV Intake: rr5 250ml Disposition: 01/24/21 20:48 Hospitalization ordered by [facility] for Inpatient Admission. Preliminary diagnosis is Cellulitis of right lower limb. - Bed requested for Telemetry/MedSurg (Inpatient). - Status is Inpatient Admission. rr5 - Condition is Stable. - Problem is new. - Symptoms are unchanged. Signatures: Dispatcher [employer] [facility] Winter Ruiz, MEDICAL OFFICER-C MEDICAL OFFICER-Bryanb Angela Salcedo RN RN mw Antunez, Elena, RN RN ea Wadley, Terrence, MD MD tw4 Alessandro Garcia RN RN rr5 Corrections: (The following items were deleted from the chart) 21:51 20:57 CORONAVIRUS+MR.LAB.BRZ ordered. ED[facility] EDMS 23:23 20:48 Hospitalization Ordered by [facility] MD for Inpatient Admission. Preliminary diagnosis is Cellulitis of right lower limb. Bed requested for Telemetry/MedSurg (Inpatient). Status is Inpatient Admission. Condition is Stable. Problem is new. Symptoms are unchanged. tw4 23:59 23:23 01/24/2021 20:48 Hospitalization Ordered by [facility] MD for Inpatient rr5 Admission. Preliminary diagnosis is Cellulitis of right lower limb. Bed requested for Telemetry/MedSurg (Inpatient). Status is Inpatient Admission. Condition is Stable. Problem is new. Symptoms are unchanged. mw
[2021-01-24 21:06] LABS: Absolute Lymphocytes (CBC) 0.6 K/uL (0.7-4.9); Basophils % 0.4 % (0-1.3); Hematocrit 37.2 % (39.6-49.0); Lymphocytes % 3.4 % (15.3-44.8); MPV 9.2 fL (7.6-11.3); RBC Red Blood Cell Count 4.05 M/uL (4.33-5.43)
[2021-01-24 21:07] LABS: Protime INR 1.79
[2021-01-24 21:12] LABS: Albumin 3.5 g/dL (3.4-5.0); Bilirubin Direct 0.2 mg/dL (0-0.2); Bilirubin Total 0.6 mg/dL (0.2-1.0); Magnesium 1.8 mg/dL (1.8-2.4); Protein, Total 7.5 g/dL (6.4-8.2); Troponin (Emerg Dept Use Only) 0.08 ng/mL (0.0-0.045)
[2021-01-24] MEDS ORDERED: NA CHLORIDE 0.9% 250 ML ONE (21:34)
[2021-01-24] MEDS ORDERED: VANCOMYCIN 1 GM/VIAL ONE (21:34)
[2021-01-24] MEDS ORDERED: PIPER/TAZO/NS 3.375gm 3.375 GM/100 ML BAG ONE (21:35)
[2021-01-24] MEDS ORDERED: MORPHINE 2 MG/ML SYR IV PRN (23:20)
[2021-01-24] MEDS ORDERED: ONDANSETRON 4 MG/2 ML VIAL IV PRN (23:20)
[2021-01-24 23:30] LABS: Blood Morphology Comment NOT SEEN (NOT SEEN); Platelet Estimate ADEQ
[2021-01-25 01:03] VITALS: BMI 28.7
[2021-01-25 05:54] LABS: Absolute Lymphocytes (CBC) 0.9 K/uL (0.7-4.9); Basophils % 0.4 % (0-1.3); Hematocrit 37.5 % (39.6-49.0); Lymphocytes % 6.3 % (15.3-44.8); MPV 9.2 fL (7.6-11.3); RBC Red Blood Cell Count 4.06 M/uL (4.33-5.43)
[2021-01-25 08:11] LABS: Blood Morphology Comment NOT SEEN (NOT SEEN); Platelet Estimate DECR
--- NOTE | 2021-01-25 08:51 | RAD REPORT ---
EXAM DESCRIPTION: US - Extremity Venous Uni Ltd - 01/24/2021 9:43 pm CLINICAL HISTORY: PAIN Leg swelling and edema. COMPARISON: Head Brain Wo Cont dated 02/23/2020; Head Brain Wo Cont dated 12/27/2016Extremity Venous Un i Ltd dated 09/15/2020 FINDINGS: Right lower extremity venous system was interrogated with Doppler technique. Normal flow, compressibility and augmentation was noted. There is no DVT present. IMPRESSION: No evidence of right lower extremity deep venous thrombosis.
--- NOTE | 2021-01-25 12:54 | EKG ---
Test Date: 2021-01-24 Test Time: 19:31:09 Ios Developer: RR MEASUREMENT RESULTS: Intervals: Rate: 104 VA: 242 QRSD: 92 QT: 322 QTc: 423 [place]: P: 59 VA: 242 QRS: -43 T: 56 INTERPRETIVE STATEMENTS: Sinus tachycardia with 1st degree AV block Left axis deviation Nonspecific ST abnormality Abnormal ECG Compared to ECG 09/15/2020 20:59:03 ST (T wave) deviation now present Sinus rhythm no longer present Myocardial infarct finding no longer present Electronically Signed On 01-25-21 12:52:38 CDT by Dragan Ballard
[2021-01-25] MEDS: APIXABAN 5 MG TABLET PO SCH (20:23)
[2021-01-26 05:29] LABS: Absolute Lymphocytes (CBC) 1.4 K/uL (0.7-4.9); Basophils % 0.4 % (0-1.3); Hematocrit 34.6 % (39.6-49.0); Lymphocytes % 12.2 % (15.3-44.8); MPV 8.9 fL (7.6-11.3); RBC Red Blood Cell Count 3.82 M/uL (4.33-5.43)
[2021-01-26 05:44] LABS: Albumin 2.7 g/dL (3.4-5.0); Bilirubin Direct 0.2 mg/dL (0-0.2); Bilirubin Total 0.7 mg/dL (0.2-1.0); Protein, Total 6.8 g/dL (6.4-8.2)
[2021-01-26] MEDS: LEVOTHYROXINE SOD 0.075 MG TAB PO SCH (06:00)
[2021-01-26 08:17] LABS: Platelet Estimate DECR
[2021-01-26 08:18] LABS: Blood Morphology Comment NOT SEEN (NOT SEEN)
[2021-01-26] MEDS: MULTIVIT W/ MINERAL TAB PO SCH (08:52)
[2021-01-26] MEDS: PANTOPRAZOLE 40MG TABLET PO SCH (08:53)
[2021-01-26] MEDS: METOPROLOL TAR 25 MG TAB PO SCH (08:53)
[2021-01-26] MEDS: APIXABAN 5 MG TABLET PO SCH ×2 (08:53→19:58)
[2021-01-26] MEDS ORDERED: HOME MED 1 EA UNK (Omeprazole [Omeprazole] 20 MG Capsule.Dr) PO SCH (09:00)
[2021-01-26] MEDS ORDERED: VANCOMYCIN 1.5 GM in NA CHLORIDE 0.9% 500 ML IVPB SCH (10:00)
[2021-01-26] MEDS ORDERED: VANCOMYCIN/NS 1 gm 1 GM/250 ML BAG IVPB SCH (10:00)
--- NOTE | 2021-01-26 17:11 | PN ---
Subjective: The patient is doing well. No new complaints. Objective: Vital Signs: Blood pressure 132/86, pulse 64, temperature 97.4. Heart: Regular rate and rhythm. Chest: Clear to auscultation. Abdomen: Soft, benign. Neurological: Alert, oriented. Grossly intact. Extremities: Right lower extremity showed decrease in erythema of the right leg. Peripheral pulses are felt. Laboratory Data: White cell count dropped down to 11.2, hemoglobin 12.2, hematocrit 34.6, platelets 130. Chemistry; BUN 32, creatinine 1.22, and GFR 56. Assessment And Plan: 1.Right leg cellulitis, resolving. Continue current treatment with IV antibiotics. 2.Dehydration and acute renal failure on top of chronic, improving with gentle hydration. 3.Rest of medical problems stable. Expect discharge in the morning. Look orders for details. MFS/MODL Voice ID: [id number] Report ID: [id number]
[2021-01-27] MEDS: LEVOTHYROXINE SOD 0.075 MG TAB PO SCH (05:44)
[2021-01-27] MEDS: PANTOPRAZOLE 40MG TABLET PO SCH (08:31)
[2021-01-27] MEDS: APIXABAN 5 MG TABLET PO SCH (08:31)
[2021-01-27] MEDS: MULTIVIT W/ MINERAL TAB PO SCH (08:31)
[2021-01-27] MEDS: METOPROLOL TAR 25 MG TAB PO SCH (08:32)
[2021-01-27] MEDS ORDERED: VANCOMYCIN 1.5 GM in NA CHLORIDE 0.9% 500 ML IVPB SCH (10:00)
[2021-01-27 10:14] VITALS: O2SAT 96
[2021-01-27 12:38] VITALS: BP 107/69; TEMP 97.9
--- NOTE | 2021-01-27 13:53 | DS ---
Date of Discharge: 01/27/2021 History: An 89-year-old male, who was admitted to the hospital because of right lower extremity cell ulitis. The patient also had encounter of the fall and when he was brought to the emergency room, he was found to have a cellulitis. Past Medical History: As per his admit note. Social History: As per his admit note. Family History: As per his admit note. Medications: As per his admit note. Allergies: PER HIS ADMIT NOTE. Physical Examination: As per his admit note. Diagnostic Data: As per his admit note. Hospital Course: The patient was admitted to the hospital, he was put on IV vancomycin for celluliti s. He was put also on IV fluids because he was dehydrated. He had also acute kidney failure because of dehydration and then we will continue the patient on rest of his home medicines for his chronic m edical illnesses with hydration. The patient back to chronic renal insufficiency with a GFR of 58, t hat has improved from a GFR of 37 on admission. His dehydration resolved. His cellulitis is right l ower extremity erythema and gradually started to improve. Microbiology did not disclose any growth o n his blood. The patient remained stable. He has baseline dementia for which confinement in 1 room will make him agitated, but all in all, he is clinically stable to where he could be discharged home on Augmentin for 10 days 500 one p.o. b.i.d. To continue the rest of his home medicines and follow up with me. Look discharge orders for details of the patient. MFS/MODL Voice ID: [id number] Report ID: [id number]
--- NOTE | 2021-01-31 13:48 | HP ---
Date of Admission: 01/24/2021 History Of Present Illness: An 89-year-old male brought to the emergency room because he apparently fell in his home garage. The patient himself is not a good historian. History from his son with the ER physician showed that the patient was found in his garage. He was alert, oriented, not complaini ng of much other than his right lower extremity the time presenting to the emergency room showed redness and swelling and the cellulitis in that extremity was the admitting diagnosis for that . Review of Systems: Cardiovascular: No complaint. Respiratory: No complaint. General: No complaints. Skeletomuscular: Ache in the right lower extremity at the site of redness which is anterior. Neurological: . No complaint. Genitourinary: No complaint. Past Medical History: 1.Hypothyroidism. 2.History of previous DVT. 3.Gastroesophageal reflux disease. 4.Hypertension. 5.Senile dementia. Social History: No smoking, alcohol, or drug abuse history. Family History: Noncontributing. Medications: Eliquis 5 mg p.o. b.i.d., levothyroxine 75 mcg p.o. daily, metoprolol 25 mg p.o. daily, omeprazole 20 mg p.o. daily, and multivitamin pill 1 p.o. daily. Allergies: NO KNOWN DRUG ALLERGIES. Physical Examination: General: The patient is sitting, in no acute distress. Vital Signs: Blood pressure 127/66, pulse 85, temperature 98.8. Heart: Regular rate and rhythm. Chest: Clear to auscultation. Abdomen: Soft, nontender, and nondistended. No hepatosplenomegaly. Bowel sounds are normoactive. Extremities: Right lower extremity shows expanding erythema, mainly in the of the right l ower extremity. Peripheral pulses are felt. No compartment pressure syndrome. Neurological: Alert, oriented, grossly intact. Diagnostic Data: Chest x-ray, no acute pathology. Head CT and cervical spine CT nonrevealing, no ac hoh pathology. Right lower extremity venous study, no DVT. Laboratory Data: White cell count 16.6 dropped down to 14.5, hemoglobin 12.6, hematocrit 37.5, and p latelets 143, band of neutrophils at 12. PT/INR 20.71, INR 1.79. Chemistry; sodium 133, BUN 36, cre atinine 1.52, GFR at 43. AST at 155, ALT 52, with a normal alkaline phosphatase 44. Repeat troponin 0.08. BNP 1454. Assessment And Plan: 1.Right lower extremity cellulitis. The patient is being put on IV vancomycin for now and the cultu res were drawn. 2.History of fall. No apparent head and neck injury or fractures clinically. 3.Chronic renal insufficiency with the patient being on the dry side. Apparently, he has been sitti ng for some time. His GFR has improved from 37 to 43 with hydration. I think element of dehydration was fair, so we will continue following this up. The patient's AST at 155. We are going to go ahea d and repeat that other LFTs do not show any elevation and we will repeat the BMP. No marilyn dence of congestive heart failure decompensation clinically. We will continue the patient on the rest of his home medications. Look orders for details. MFS/MODL Voice ID: [id number]
== END 2021-01-27 12:15 | disposition home or self-care (01) | DRG 603 ==
LOC: ER 19:24 → 2ND 23:33
PROVIDERS: ADMIT Internal Medicine; ATTEND Internal Medicine
DX: L03.115 Cellulitis of right lower limb (principal); N17.9 Acute kidney failure, unspecified; E03.9 Hypothyroidism, unspecified; E86.0 Dehydration; F03.90 Unspecified dementia, unspecified severity, without behavioral disturbance, psychotic disturbance, mood disturbance, and anxiety; K21.9 Gastro-esophageal reflux disease without esophagitis; I12.9 Hypertensive chronic kidney disease with stage 1 through stage 4 chronic kidney disease, or unspecified chronic kidney disease; N18.9 Chronic kidney disease, unspecified; Z79.890 Hormone replacement therapy; Z79.899 Other long term (current) drug therapy; Z86.718 Personal history of other venous thrombosis and embolism; Z79.01 Long term (current) use of anticoagulants; Z20.822 Contact with and (suspected) exposure to COVID-19
CPT/HCPCS: 36415; 70450; 71045; 72125; 80048; 80076; 80202; 82565; 82947; 83605; 83735; 83880; 84484; 85025; 85610; 87040; 93005; 93971; 97116; 97161; 99285; J2543; J3370; J7040; J7050; U0003